=== PATIENT | female | born 1955 | race Caucasian/White ===

== ENCOUNTER 2017-05-15 02:01 | Emergency (ER) | payer BC ==
[2017-05-15 02:08] VITALS: O2SAT 99
[2017-05-15] MEDS ORDERED: Erythromycin 3.5 GM OPHTH. OP ONE (02:23)
[2017-05-15] MEDS ORDERED: Tylenol #3 Tablet PO ONE (02:26)
--- NOTE | 2017-05-15 02:31 | ERPHSYRPT ---
- History of Present Illness Time Seen by Provider: 05/15/17 02:10 Source: patient Exam Limitations: clinical condition Patient Subjective Stated Complaint: PT STATES THIS EVENING SHE BEGAN HAVING EYE DRAINAGE AND REDNESS. Triage Nursing Assessment: PT PINK, WARM, DRY. CONJUNCTIVA RED WITH WATERY DRANAGE AND YELLOW DISCHARGE. DENIES ANY VISUAL DISTURBANCES. Physician History: PATIENT COMPLAIN OF BILATERAL EYE REDNESS ASSOCIATED WITH DRAINAGE. HAS ASSOCIATED EYE IRRITATION, DENIES BLURRED VISION. Timing/Duration: today Location: bilateral eyes Severity: moderate Apparent Injury: no Associated Symptoms: burning, sensitivity to light, redness Visual Assistive Devices: None Chemical Exposure: No Trauma: No Welding Arc/Tanning Bed Exposure: No Allergies/Adverse Reactions: tobramycin Allergy (Severe, Verified 05/15/17 02:08) gentamicin Allergy (Verified 05/15/17 02:08) Hx Tetanus, Diphtheria Vaccination/Date Given: Yes (UP TO DATE) Hx Influenza Vaccination/Date Given: No Hx Pneumococcal Vaccination/Date Given: No Immunizations Up to Date: Yes - Review of Systems Eyes: Discharge, Eye Pain, Eye Redness, Tearing Ears, Nose, & Throat: No Symptoms Respiratory: No Symptoms Abdominal/Gastrointestinal: No Symptoms Genitourinary Symptoms: No Symptoms Neurological: No Symptoms Psychological: No Symptoms Endocrine: No Symptoms - Past Medical History Pertinent Past Medical History: No Neurological History: No Pertinent History ENT History: No Pertinent History Cardiac History: No Pertinent History Respiratory History: Other Endocrine Medical History: No Pertinent History Musculoskeletal History: No Pertinent History GI Medical History: No Pertinent History History: No Pertinent History Psycho-Social History: No Pertinent History Female Reproductive Disorders: No Pertinent History Other Medical History: hysterectomy 1997, choly 1995, hernia repair 1999 - Past Surgical History Past Surgical History: Yes Neuro Surgical History: No Pertinent History Cardiac: No Pertinent History Respiratory: No Pertinent History Gastrointestinal: Cholecystectomy, Exploratory Laparoscopy, Hernia Repair Genitourinary: No Pertinent History Musculoskeletal: No Pertinent History Female Surgical History: Hysterectomy - Social History Smoking Status: Former smoker Exposure to second hand smoke: No Drug Use: none Patient Lives Alone: No - Nursing Vital Signs Nursing Vital Signs: Initial Vital Signs Temperature 97.8 F 05/15/17 02:03 Pulse Rate 73 05/15/17 02:03 Respiratory Rate 18 05/15/17 02:03 Blood Pressure 161/84 05/15/17 02:03 O2 Sat by Pulse Oximetry 99 05/15/17 02:03 Pain Scale Pain Intensity 0 - Physical Exam General Appearance: no apparent distress Eye Exam: bilateral eye: normal inspection, PERRL, EOMI, conjunctival inflammation Ears, Nose, Throat Exam: normal ENT inspection Neck Exam: meningismus Respiratory Exam: normal breath sounds Extremity Exam: tenderness Neurologic: oriented x 3 Skin Exam: normal color SpO2: 99 Oxygen Delivery: Room Air Ordered Tests: Active Orders 24 hr Category Date Time Status Visual Acuity STAT Care 05/15/17 02:22 Ordered CULTURE,WOUND Stat Lab 05/15/17 02:25 Ordered Medication Summary Generic Name Dose Route Start Last Admin Trade Name Freq PRN Reason Stop Dose Admin Acetaminophen/Codeine Phosphate 2 tab 05/15/17 02:26 Tylenol #3 Tablet PO 05/15/17 02:27 SENT HOME W/ PATIENT ONE Discontinued Medications Generic Name Dose Route Start Last Admin Trade Name Freq PRN Reason Stop Dose Admin Erythromycin 3.5 gm 05/15/17 02:23 Erythromycin 3.5 Gm Ophth. OP 05/15/17 02:24 STAT ONE - Progress Progress Note: 05/15/17 02:32 ADMINISTERED TYLENOL #3-2 TABLETS TAKE HOME Counseled pt/family regarding: diagnosis, need for follow-up - Departure Time of Disposition: 02:45 Departure Disposition: Home, Extended Care Facility Clinical Impression: BILATERAL CONJUNCTIVITIS Condition: Stable Critical Care Time: No Referrals: ROSELIA PARKINSON FNP [Primary Care Provider] - Additional Instructions: CLEANSE YOUR HANDS FREQUENTLY. APPLY ERYTHROMYCIN OPHTMALMIC OINTMENT INTO BOTH EYES 4 TIMES DAILY FOR 7 DAYS. TYLENOL #3 EVERY 4 HOURS NEEDED FOR PAIN. Prescriptions: Codeine Phosphate/APAP #3 [Tylenol #3 Tablet] 1 tab PO Q4H PRN PRN #12 tablet PRN Reason: Pain Erythromycin Base 3.5 gm [Erythromycin 3.5 GM OPHTH.] 1 gm OP QID #3.5 tube
[2017-05-15] MEDS ORDERED: Erythromycin 1 GM OP STA (02:36)
[2017-05-15] MEDS ORDERED: Erythromycin 1 GM ONE (02:37)
[2017-05-15] MEDS ORDERED: Tylenol #3 Tablet ONE (02:37)
[2017-05-15 02:50] VITALS: BP 147/98; PULSE 76
== END 2017-05-15 02:50 | disposition home or self-care (01) ==
LOC: ED 02:01
DX: H10.9 Unspecified conjunctivitis (principal)
CPT/HCPCS: 87070; 87077; 99283; A9270-GY

== ENCOUNTER 2018-08-08 00:12 | Emergency (ER) | payer BC ==
[2018-08-08 00:26] VITALS: O2SAT 96
[2018-08-08] MEDS ORDERED: BACIGUENT PACKET TP ONE (00:29)
[2018-08-08] MEDS ORDERED: XYLOCAINE 1% HCL 20 ML MDV IJ ONE (00:29)
[2018-08-08] MEDS ORDERED: Adacel Vial IM ONE ×2 (00:29→00:38)
--- NOTE | 2018-08-08 00:34 | ERPHSYRPT ---
- History of Present Illness Time Seen by Provider: 08/08/18 00:30 Source: patient Exam Limitations: no limitations Patient Subjective Stated Complaint: Fall/ Laceration to forehead Triage Nursing Assessment: Patient ambulated back to ED and transferred self to bed. Patient A+ O X 3. Patient states she fell in her garage landing on concrete hitting her jasper knees and head around 2330. Patient has laceration to forehead and bridge of nose. Patient applied pressure and immediately came to ED. Patient complains of headache 7/10 and nausea. Patient denies losing consciousness. Laceration to forehead 2cm X 0.5cm and abrasion 1cm X 1cm on bridge of nose. Physician History: 63-year-old white female arrives with complaint of laceration to her anterior forehead symptoms since one hour prior to arrival. Patient states she slipped and fell in the garage striking her forehead she denies any loss of consciousness she has some tenderness in the area. She has no neck pain. She does have approximately 2 cm laceration to the anterior 4 which is semicircular and in the mid forehead. Past medical history patient denies. Past surgical history includes cholecystectomy, exploratory laparoscopy, hysterectomy, hernia repair Social history patient denies tobacco or illicit drug use she states she uses occasional alcohol. Timing/Duration: today (one hour prior to arriva) Severity: moderate Modifying Factors: Improves With: nothing Associated Symptoms: other (Localize pain and laceration to anterior forehead), No nausea, No vomiting, No abdominal pain, No shortness of breath, No heartburn , No diaphoresis, No cough, No chills, No chest pain, No fever, No headaches, No loss of appetite, No malaise, No rash, No syncope, No seizure, No weakness Allergies/Adverse Reactions: tobramycin Allergy (Severe, Verified 08/08/18 00:26) gentamicin Allergy (Verified 08/08/18 00:26) Hx Tetanus, Diphtheria Vaccination/Date Given: No Hx Influenza Vaccination/Date Given: No Hx Pneumococcal Vaccination/Date Given: No Immunizations Up to Date: Yes - Review of Systems Constitutional: No Symptoms, Other (Localized pain anterior forehead) Eyes: No Symptoms Ears, Nose, & Throat: No Symptoms Respiratory: No Cough, No Dyspnea Cardiac: No Chest Pain, No Edema, No Syncope Abdominal/Gastrointestinal: No Abdominal Pain, No Nausea, No Vomiting, No Diarrhea Genitourinary Symptoms: No Dysuria Musculoskeletal: No Back Pain, No Neck Pain Skin: Other (2 cm laceration anterior forehead) Neurological: No Dizziness, No Focal Weakness, No Sensory Changes Psychological: No Symptoms Endocrine: No Symptoms All Other Systems: Reviewed and Negative - Past Medical History Pertinent Past Medical History: No Neurological History: No Pertinent History ENT History: No Pertinent History Cardiac History: No Pertinent History Respiratory History: Other Endocrine Medical History: No Pertinent History Musculoskeletal History: No Pertinent History GI Medical History: No Pertinent History History: No Pertinent History Psycho-Social History: No Pertinent History Female Reproductive Disorders: No Pertinent History Other Medical History: hysterectomy 1997, choly 1995, hernia repair 1999 - Past Surgical History Past Surgical History: Yes Neuro Surgical History: No Pertinent History Cardiac: No Pertinent History Respiratory: No Pertinent History Gastrointestinal: Cholecystectomy, Exploratory Laparoscopy, Hernia Repair Genitourinary: No Pertinent History Musculoskeletal: No Pertinent History Female Surgical History: Hysterectomy - Social History Smoking Status: Never smoker Exposure to second hand smoke: No Drug Use: none Patient Lives Alone: Yes - Female History Hx Last Menstrual Period: Total Hysterectomy 1997 Hx Now: No - Nursing Vital Signs Nursing Vital Signs: Initial Vital Signs Temperature 97.4 F 08/08/18 00:14 Pulse Rate 81 08/08/18 00:14 Respiratory Rate 18 08/08/18 00:14 Blood Pressure 145/126 08/08/18 00:14 O2 Sat by Pulse Oximetry 96 08/08/18 00:14 Pain Scale Pain Intensity 7 - Physical Exam General Appearance: mild distress, alert, other (well-developed well-nourished white female 2 cm semicircular laceration anterior forehead mid forehead.) Eye Exam: PERRL/EOMI, eyes nml inspection Ears, Nose, Throat Exam: normal ENT inspection, TMs normal, pharynx normal, moist mucous membranes Neck Exam: normal inspection, non-tender, supple, full range of motion Respiratory Exam: normal breath sounds, lungs clear, No respiratory distress Cardiovascular Exam: regular rate/rhythm, normal heart sounds, normal peripheral pulses, capillary refill <2 sec Gastrointestinal/Abdomen Exam: soft, normal bowel sounds, No tenderness, No mass Back Exam: normal inspection, normal range of motion, No CVA tenderness, No vertebral tenderness Extremity Exam: normal inspection, normal range of motion, pelvis stable Neurologic Exam: alert, oriented x 3, cooperative, 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 as tested, normal mood/affect, nml cerebellar function, nml station & gait, sensation nml, No motor deficits Skin Exam: normal color, warm, dry, laceration (2 cm laceration semicircular mid anterior forehead) SpO2 Interpretation: normal (96%) SpO2: 96 Oxygen Delivery: Room Air - Course Nursing assessment & vital signs reviewed: Yes Ordered Tests: Active Orders 24 hr Category Date Time Status Prepare for Sutures STAT Care 08/08/18 00:29 Active Sutures STAT Care 08/08/18 00:29 Active Wound Care STAT Care 08/08/18 00:29 Active Medication Summary Discontinued Medications Generic Name Dose Route Start Last Admin Trade Name Freq PRN Reason Stop Dose Admin Bacitracin Zinc 0.9 gm 08/08/18 00:29 Baciguent Packet TP 08/08/18 00:30 STAT ONE Diphtheria/Tetanus/Acell Pertussis 0.5 ml 08/08/18 00:29 Adacel Vial IM 08/08/18 00:30 .ONCE ONE Diphtheria/Tetanus/Acell Pertussis Confirm 08/08/18 00:38 Adacel Vial Administered 08/08/18 00:39 Dose 0.5 ml IM .STK-MED ONE Lidocaine HCl 5 ml 08/08/18 00:29 Xylocaine 1% Hcl 20 Ml Mdv IJ 08/08/18 00:30 STAT ONE Lidocaine HCl Confirm 08/08/18 00:38 Xylocaine 1% Hcl 20 Ml Mdv Administered 08/08/18 00:39 Dose 5 ml .ROUTE .STK-MED ONE - Progress Progress: improved Progress Note: 08/08/18 01:00 Laceration repair, 2.0 cm, anterior forehead. Laceration sterilely prepped and draped. Anesthetized with 1% lidocaine. Sutured using 5 6. 0 Prolene sutures (interrupted) Bacitracin and pressure dressing was placed by the nurse. This is a 63-year-old white female she arrives with complaint with 2 cm laceration which is semicircular on her anterior forehead she states she slipped at home and fell striking her head on the garage floor. She has not had any loss of consciousness she has a normal neurologic exam. The laceration was repaired as noted above patient has no neck tenderness. DTaP was updated for this patient. Will give patient [place] for pain. 08/08/18 01:06 Patient's inspect report was examined patient without signs of recent or recurrent narcotic use. - Departure Time of Disposition: 01:02 Departure Disposition: Home Clinical Impression: Accidental fall Qualifiers: Encounter type: initial encounter Qualified Code(s): W19.XXXA - Unspecified fall, initial encounter Head contusion Qualifiers: Encounter type: initial encounter Contusion of head detail: unspecified part of head Qualified Code(s): S00.93XA - Contusion of unspecified part of head, initial encounter Forehead laceration Qualifiers: Encounter type: initial encounter Qualified Code(s): S01.81XA - Laceration without foreign body of other part of head, initial encounter Condition: Fair Critical Care Time: No Instructions: Contusion (DC), Laceration Repair With Stitches (DC), Closed Head Injury Additional Instructions: Return home. Keep laceration clean and dry apply bacitracin daily. Cold packs to contused area 24-48 hours. [place] 5/325 #10 one orally every 4-6 hours as needed for pain. Follow-up with your family doctor or return if signs of infection or problems. Sutures out in 5 days. Return for acute distress or for severe symptoms. Prescriptions: Hydrocodone/Acetaminophen [[place] 5-325 Tablet] 1 tab PO Q4-6HPRN PRN #10 tablet MDD 6 tablets PRN Reason: Pain
[2018-08-08] MEDS ORDERED: XYLOCAINE 1% HCL 20 ML MDV ONE (00:38)
[2018-08-08 01:18] VITALS: BP 125/70; PULSE 62
[2018-08-08] MEDS ORDERED: NORCO 5/325 MG PO ONE (01:21)
[2018-08-08] MEDS ORDERED: NORCO 5/325 MG ONE (01:22)
== END 2018-08-08 01:30 | disposition home or self-care (01) ==
LOC: ED 00:12
DX: S01.01XA Laceration without foreign body of scalp, initial encounter (principal); W01.198A Fall on same level from slipping, tripping and stumbling with subsequent striking against other object, initial encounter; Y92.008 Other place in unspecified non-institutional (private) residence as the place of occurrence of the external cause
CPT/HCPCS: 12001; 90471; 90715; 96372; 99284; A9270-GY

== ENCOUNTER 2021-10-24 13:04 | Inpatient (IN) | payer BC ==
[2021-10-24 13:53] LABS: Hematocrit 38.7 % (35-47); Hemoglobin 13.1 gm/dl (12.0-16.0); Mean Cell Volume 97.2 fl (78-100); Mean Corpuscular Hemoglobin 32.9 pg (26-32); Mean Corpuscular Hgb Concent. 33.9 g/dl (32-36); Mean Platelet Volume 10.8 fl (7.5-11.0); Platelet Count 245 K/mm3 (150-450); Red Blood Count 3.98 M/mm3 (4.1-5.4); Red Cell Distribution Width 12.5 % (11.5-14.0)
[2021-10-24 13:54] LABS: White Blood Count 25.3 K/mm3 (4.0-10.5)
--- NOTE | 2021-10-24 13:56 | XRAY ---
Indication: Short of breath. Comparison: November 26, 2016. Portable chest demonstrates new irregular left hilar fullness better evaluated with CT chest with contrast exam. Minimal right mid to lower lung subsegmental atelectasis/scarring. Heart not enlarged. Stable mediastinal/right hilar/right base calcified granulomas. Bony thorax intact again with osteopenia.
--- NOTE | 2021-10-24 13:59 | ERPHSYRPT ---
- History of Present Illness Time Seen by Provider: 10/24/21 13:20 Source: patient Exam Limitations: no limitations Patient Subjective Stated Complaint: HAVE BEEN FIGHTING SINUS AND EAR INFECTIONS SINCE JULY Triage Nursing Assessment: PT TO ROOM VIA WHEELCHAIR, PT IS ALERT AND ORIENTED, SLIGHT SHORTNESS OF BREATH NOTED, PT STATES, "EAR AND HEAD IS PAINFUL, 10/10." PRODUCTIVE COUGH, THICK GREEN SPUTUM, LUNGS CLEAR, NO EDEMA. Physician History: Patient is a 66-year-old female presents to our ED for evaluation of sinus pain ear pain and productive cough. Patient's sinus and ear pain started approximately 3 months ago. Patient has tried numerous [id number] remedies. Patient has now been experiencing some shortness of breath. Patient's last Covid test was in September. 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 Cough is productive of greenish sputum. Patient denies chest pain. No nausea vomiting or diaphoresis. Symptoms are progressive. Symptoms are moderate in intensity. No specific worsening improving factors. Patient voices no other complaints or concerns at this time. Timing/Duration: other (Ear and sinus pain since July. Progressive shortness of breath over the past several days) Severity: moderate Modifying Factors: Improves With: movement Associated Symptoms: shortness of breath, cough, fever, weakness, No nausea, No vomiting, No syncope, No seizure Allergies/Adverse Reactions: tobramycin Allergy (Severe, Verified 10/24/21 13:21) gentamicin Allergy (Verified 10/24/21 13:21) Home Medications: Buspirone HCl 5 mg [Buspar 5 mg] 10 mg PO BIDPRN PRN 10/24/21 [History] Citalopram Hydrobromide [Celexa] 10 mg PO DAILY 10/24/21 [History] Furosemide [Lasix] 20 mg PO DAILY 10/24/21 [History] Levothyroxine Sodium [Euthyrox] 50 mcg PO DAILY 10/24/21 [History] Montelukast Sodium 10 mg [Singulair 10 MG] 10 mg PO DAILY 10/24/21 [History] Potassium Chloride 10 meq PO DAILY 10/24/21 [History] Hx Tetanus, Diphtheria Vaccination/Date Given: Yes Hx Influenza Vaccination/Date Given: Yes Hx Pneumococcal Vaccination/Date Given: Yes Immunizations Up to Date: Yes Travel Risk - International Travel Have you traveled outside of the country in past 3 weeks: No - Coronavirus Screening Are you exhibiting any of the following symptoms?: No Close contact with a COVID-19 positive Pt in past 14-21 Days: No - Vaccine Status Have you recieved a Covid-19 vaccination: Yes [employer] 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: [employer] - Review of Systems Constitutional: No Symptoms, No Fever, No Chills Eyes: No Symptoms Ears, Nose, & Throat: No Symptoms Respiratory: No Symptoms, No Cough, No Dyspnea Cardiac: No Chest Pain, No Edema, No Syncope Abdominal/Gastrointestinal: No Symptoms, No Abdominal Pain, No Nausea, No Vomiting, No Diarrhea Genitourinary Symptoms: No Symptoms, No Dysuria Musculoskeletal: No Symptoms, No Back Pain, No Neck Pain Skin: No Symptoms, No Rash Neurological: No Symptoms, No Dizziness, No Focal Weakness, No Sensory Changes Psychological: No Symptoms Endocrine: No Symptoms Hematologic/Lymphatic: No Symptoms Immunological/Allergic: No Symptoms All Other Systems: Reviewed and Negative - Past Medical History Pertinent Past Medical History: No Neurological History: No Pertinent History ENT History: Other Cardiac History: No Pertinent History Respiratory History: No Pertinent History Endocrine Medical History: Hypothyroidism Musculoskeletal History: No Pertinent History GI Medical History: No Pertinent History History: No Pertinent History Psycho-Social History: Depression Female Reproductive Disorders: No Pertinent History Other Medical History: SEASONAL ALLERGIES - Past Surgical History Past Surgical History: Yes Neuro Surgical History: No Pertinent History Cardiac: No Pertinent History Respiratory: No Pertinent History Gastrointestinal: Cholecystectomy, Exploratory Laparoscopy, Hernia Repair Genitourinary: No Pertinent History Musculoskeletal: No Pertinent History Female Surgical History: Hysterectomy, Section - Social History Smoking Status: Never smoker Exposure to second hand smoke: No Drug Use: none Patient Lives Alone: Yes - Nursing Vital Signs Nursing Vital Signs: Initial Vital Signs Temperature 101.1 F 10/24/21 13:10 Pulse Rate 60 10/24/21 13:10 Respiratory Rate 30 H 10/24/21 13:10 O2 Sat by Pulse Oximetry 84 L 10/24/21 13:10 Pain Scale Pain Intensity 5 - Physical Exam General Appearance: no apparent distress, alert, other (Patient mildly tachypneic.) Eye Exam: PERRL/EOMI, eyes nml inspection Ears, Nose, Throat Exam: normal ENT inspection, TMs normal, pharynx normal, moist mucous membranes Neck Exam: normal inspection, non-tender, supple, full range of motion Respiratory Exam: normal breath sounds, lungs clear, airway intact, No respiratory distress Cardiovascular Exam: regular rate/rhythm, normal heart sounds, normal peripheral pulses Gastrointestinal/Abdomen Exam: soft, normal bowel sounds, No tenderness, No mass Back Exam: normal inspection, normal range of motion, No CVA tenderness, No vertebral tenderness Extremity Exam: normal inspection, normal range of motion, pelvis stable Neurologic Exam: alert, oriented x 3, cooperative, normal mood/affect, nml cerebellar function, nml station & gait, sensation nml, No motor deficits Skin Exam: normal color, warm, dry, No rash Lymphatic Exam: No adenopathy SpO2 Interpretation: normal SpO2: 92 - Course Nursing assessment & vital signs reviewed: Yes EKG Interpreted by Me: RATE (104), Sinus Tach, NORMAL AXIS, NORMAL INTERVALS - Radiology Exams Chest X-ray Interpretation: Teleradiologist Report (Radiology chest reveals left hilar fullness. Normal heart. Osteopenia. Lung granuloma) Ordered Tests: Active Orders 24 hr Category Date Time Status Bedrest ROUTINE Activity 10/24/21 20:43 Active [employer] STAT Care 10/24/21 13:33 Completed Code Status Order ROUTINE Care 10/24/21 20:43 Active EKG-ER Only STAT Care 10/24/21 13:33 Completed IV Care Q6H Care 10/24/21 20:43 Active IV Insertion STAT Care 10/24/21 13:33 Completed Neuro Checks Q4H Care 10/24/21 20:[address] in Observation ROUTINE Care 10/24/21 20:43 Active Pulse Oximetry (ED) STAT Care 10/24/21 13:33 Completed Telemetry q6h Care 10/24/21 20:43 Active Heart-Healthy Diet Diet 10/24/21 Breakfast Active CHEST 1 VIEW (PORTABLE) Stat Exams 10/24/21 13:33 Completed CHEST WITHOUT CONTRAST [CT] Stat Exams 10/24/21 15:42 Completed BLOOD CULTURE Stat Lab 10/24/21 14:08 Received CBC W DIFF AM.LAB Lab 10/25/21 04:15 Completed CBC W DIFF Stat Lab 10/24/21 13:29 Results CMP AM.LAB Lab 10/25/21 04:15 Completed CMP Stat Lab 10/24/21 13:29 Completed Lactic Acid Stat Lab 10/24/21 13:45 Completed Manual Differential NC Stat Lab 10/24/21 13:29 Results NT PRO BNP Stat Lab 10/24/21 13:29 Completed Pathologist Review Stat Lab 10/24/21 13:29 Results TROPONIN Q3H Lab 10/24/21 13:29 Completed TROPONIN Q3H Lab 10/24/21 16:30 Completed TROPONIN Q3H Lab 10/24/21 19:27 Completed Pulse Oximetry CONTINUOUS RT 10/24/21 20:43 Active Medication Summary Generic Name Dose Route Start Last Admin Trade Name Cece PRN Reason Stop Dose Admin Acetaminophen 650 mg 10/24/21 20:43 10/25/21 05:12 Acetaminophen 325 Mg Tablet PO 11/23/21 20:42 650 mg Q4H PRN PRN Administration PAIN AND/OR FEVER Albuterol/Ipratropium 3 ml 10/24/21 22:31 10/25/21 05:31 Ipratropium/Albuterol Sulfate 3 Ml Ampul.Neb IH 11/23/21 22:30 3 ml Q4HPRN PRN Administration SHORTNESS OF BREATH/WHEEZING Benzonatate 200 mg 10/24/21 21:31 10/24/21 21:40 Benzonatate 100 Mg Capsule PO 11/23/21 21:30 200 mg Q8H PRN Administration COUGH Buspirone HCl 10 mg 10/24/21 22:00 10/24/21 21:40 Buspirone Hcl 5 Mg Tablet PO 11/23/21 21:59 10 mg BID MARCELLO Administration Sodium Chloride 1,000 mls @ 100 mls/hr 10/24/21 20:43 10/24/21 21:41 Sodium Chloride 0.9% 1000 Ml IV 11/23/21 20:42 100 mls/hr .Q10H MARCELLO Administration Morphine Sulfate 4 mg 10/24/21 20:43 10/24/21 21:49 Morphine Sulfate 4 Mg/Ml Injection IV 10/29/21 20:42 4 mg Q4H PRN PRN Administration PAIN Discontinued Medications Generic Name Dose Route Start Last Admin Trade Name Cece PRN Reason Stop Dose Admin Sodium Chloride 1,000 mls @ 200 mls/hr 10/24/21 15:45 10/24/21 16:22 Sodium Chloride 0.9% 1000 Ml IV 11/23/21 15:44 200 mls/hr .Q5H MARCELLO Administration Vancomycin HCl 1 gm in 200 mls @ 125 mls/hr 10/24/21 15:44 10/24/21 18:25 Vancomycin 1 Gram/200 Ml Bag IV 10/24/21 17:19 125 mls/hr STAT ONE 125 mls/hr Administration Piperacillin Sod/Tazobactam 100 mls @ 200 mls/hr 10/24/21 15:44 10/24/21 16:23 Sod 3.375 gm/ Sodium Chloride IV 10/24/21 16:13 200 mls/hr STAT ONE Administration Magnesium Sulfate/Dextrose 100 mls @ 100 mls/hr 10/24/21 16:15 10/24/21 17:42 Magnesium 1 Gm / 100 Ml D5w IV 10/24/21 18:14 100 mls/hr Q1H MARCELLO Administration Sodium Chloride Confirm 10/24/21 16:20 Sodium Chloride 100ml Mini-Bag Plus Administered 10/24/21 16:21 Dose 100 mls @ ud IV .STK-MED ONE Vancomycin HCl Confirm 10/24/21 17:46 Vancomycin 1 Gram/200 Ml Bag Administered 10/24/21 17:47 Dose 1 gm in 200 mls @ ud IV .STK-MED ONE Magnesium Sulfate/Dextrose Confirm 10/24/21 17:10 Magnesium 1 Gm / 100 Ml D5w Administered 10/24/21 17:11 Dose 100 mls @ ud IV .STK-MED ONE Magnesium Sulfate/Dextrose Confirm 10/24/21 17:41 Magnesium 1 Gm / 100 Ml D5w Administered 10/24/21 17:42 Dose 100 mls @ ud IV .STK-MED ONE Morphine Sulfate 4 mg 10/24/21 17:23 10/24/21 17:39 Morphine Sulfate 4 Mg/Ml Injection IV 10/24/21 17:24 4 mg STAT ONE Administration Morphine Sulfate Confirm 10/24/21 17:36 Morphine Sulfate 4 Mg/Ml Injection Administered 10/24/21 17:37 Dose 4 mg .ROUTE .STK-MED ONE Ondansetron HCl 4 mg 10/24/21 17:24 10/24/21 17:39 Ondansetron Hcl 4 Mg/2 Ml Vial IV 10/24/21 17:25 4 mg STAT ONE Administration Ondansetron HCl Confirm 10/24/21 17:36 Ondansetron Hcl 4 Mg/2 Ml Vial Administered 10/24/21 17:37 Dose 4 mg .ROUTE .STK-MED ONE Piperacillin Sod/Tazobactam Sod Confirm 10/24/21 16:20 Piperacillin/Tazobactam Sodium 3.375 Gm Vial Administered 10/24/21 16:21 Dose 3.375 gm IV .STK-MED ONE Potassium Chloride 40 meq 10/24/21 16:01 10/24/21 16:23 Potassium Chloride 10 Meq Tablet PO 10/24/21 16:02 40 meq STAT ONE Administration Potassium Chloride Confirm 10/24/21 16:20 Potassium Chloride 10 Meq Tablet Administered 10/24/21 16:21 Dose 40 meq PO .STK-MED ONE Lab/Rad Data: Laboratory Result Diagrams 10/24/21 13:29 10/24/21 13:29 Laboratory Results 10/24/21 10/24/21 10/24/21 Range/Units 19:27 17:25 16:30 WBC (4.0-10.5) K/mm3 RBC (4.1-5.4) M/mm3 Hgb (12.0-16.0) gm/dl Hct (35-47) % MCV (78-100) fl MCH (26-32) pg MCHC (32-36) g/dl RDW (11.5-14.0) % Plt Count (150-450) K/mm3 MPV (7.5-11.0) fl Segmented Neutrophils (36.0-66.0) % Band Neutrophils (0.0-2.0) % Lymphocytes (Manual) (24-44) % Toxic Granulation Platelet Estimate (NORMAL) RBC Morphology Anisocytosis Smear Path Review Sodium (137-145) mmol/L Potassium (3.5-5.1) mmol/L Chloride (98-107) mmol/L Carbon Dioxide (22-30) mmol/L Anion Gap (5-15) MEQ/L BUN (7-17) mg/dL Creatinine (0.52-1.04) mg/dL Estimated GFR ML/MIN Glucose (74-106) mg/dL Lactic Acid (0.4-2.0) Calcium (8.4-10.2) mg/dL Total Bilirubin (0.2-1.3) mg/dL AST (14-36) U/L ALT (0-35) U/L Alkaline Phosphatase (38-126) U/L Troponin I < 0.012 < 0.012 (0.000-0.034) ng/mL NT-Pro-B Natriuret Pep (0-900) pg/mL Serum Total Protein (6.3-8.2) g/dL Albumin (3.5-5.0) g/dL Influenza Type A Ag NEGATIVE (NEGATIVE) Influenza Type B Ag NEGATIVE (NEGATIVE) RSV (PCR) NEGATIVE (Negative) SARS-CoV-2 (PCR) NEGATIVE (NEGATIVE) 10/24/21 10/24/21 10/24/21 Range/Units 13:45 13:29 13:29 WBC (4.0-10.5) K/mm3 RBC (4.1-5.4) M/mm3 Hgb (12.0-16.0) gm/dl Hct (35-47) % MCV (78-100) fl MCH (26-32) pg MCHC (32-36) g/dl RDW (11.5-14.0) % Plt Count (150-450) K/mm3 MPV (7.5-11.0) fl Segmented Neutrophils (36.0-66.0) % Band Neutrophils (0.0-2.0) % Lymphocytes (Manual) (24-44) % Toxic Granulation Platelet Estimate (NORMAL) RBC Morphology Anisocytosis Smear Path Review Sodium 136 L (137-145) mmol/L Potassium 3.2 L (3.5-5.1) mmol/L Chloride 100 (98-107) mmol/L Carbon Dioxide 23 (22-30) mmol/L Anion Gap 16.5 H (5-15) MEQ/L BUN 36 H (7-17) mg/dL Creatinine 2.01 H (0.52-1.04) mg/dL Estimated GFR 26.3 ML/MIN Glucose 155 H (74-106) mg/dL Lactic Acid 1.8 (0.4-2.0) Calcium 8.7 (8.4-10.2) mg/dL Total Bilirubin 1.40 H (0.2-1.3) mg/dL AST 28 (14-36) U/L ALT 23 (0-35) U/L Alkaline Phosphatase 136 H (38-126) U/L Troponin I < 0.012 (0.000-0.034) ng/mL NT-Pro-B Natriuret Pep 668 (0-900) pg/mL Serum Total Protein 6.7 (6.3-8.2) g/dL Albumin 3.6 (3.5-5.0) g/dL Influenza Type A Ag (NEGATIVE) Influenza Type B Ag (NEGATIVE) RSV (PCR) (Negative) SARS-CoV-2 (PCR) (NEGATIVE) 10/24/21 Range/Units 13:29 WBC 25.3 H* (4.0-10.5) K/mm3 RBC 3.98 L (4.1-5.4) M/mm3 Hgb 13.1 (12.0-16.0) gm/dl Hct 38.7 (35-47) % MCV 97.2 (78-100) fl MCH 32.9 H (26-32) pg MCHC 33.9 (32-36) g/dl RDW 12.5 (11.5-14.0) % Plt Count 245 (150-450) K/mm3 MPV 10.8 (7.5-11.0) fl Segmented Neutrophils 94 H (36.0-66.0) % Band Neutrophils 3 H (0.0-2.0) % Lymphocytes (Manual) 3 L (24-44) % Toxic Granulation 2+ Platelet Estimate NORMAL (NORMAL) RBC Morphology ABNORMAL Anisocytosis RARE Smear Path Review Pending Sodium (137-145) mmol/L Potassium (3.5-5.1) mmol/L Chloride (98-107) mmol/L Carbon Dioxide (22-30) mmol/L Anion Gap (5-15) MEQ/L BUN (7-17) mg/dL Creatinine (0.52-1.04) mg/dL Estimated GFR ML/MIN Glucose (74-106) mg/dL Lactic Acid (0.4-2.0) Calcium (8.4-10.2) mg/dL Total Bilirubin (0.2-1.3) mg/dL AST (14-36) U/L ALT (0-35) U/L Alkaline Phosphatase (38-126) U/L Troponin I (0.000-0.034) ng/mL NT-Pro-B Natriuret Pep (0-900) pg/mL Serum Total Protein (6.3-8.2) g/dL Albumin (3.5-5.0) g/dL Influenza Type A Ag (NEGATIVE) Influenza Type B Ag (NEGATIVE) RSV (PCR) (Negative) SARS-CoV-2 (PCR) (NEGATIVE) - Progress Progress: improved Progress Note: 10/24/21 15:43 Chest x-ray reveals a left hilar fullness. Radiologist recommends a CT chest with contrast. However a contrast study is contraindicated due to new acute renal injury. CT reveals bilateral multifocal pneumonia. Case discussed Dr. Gamez except admission to observation. 10/25/21 06:51 Discussed with : Emerita Will see patient in: hospital (observation) Counseled pt/family regarding: lab results, diagnosis, rad results - Departure Departure Disposition: Observation Clinical Impression: Leukocytosis, Hypokalemia, Acute renal injury, Abnormal chest x-ray, Osteopenia, Lung granuloma, Left upper lobe consolidation, Posterior bibasilar consolidation, Calcified hilar lymph node, Arthritis of spine, Left mid renal exophytic cyst, Fatty liver, Old granulomatous disease, Fever, Hypoxia Condition: Stable Critical Care Time: No
[2021-10-24 14:10] LABS: ALBUMIN 3.6 g/dL (3.5-5.0); ANION GAP 16.5 MEQ/L (5-15); BILIRUBIN,TOTAL 1.4 mg/dL (0.2-1.3); Calcium 8.7 mg/dL (8.4-10.2); Creatinine 1 2.01 mg/dL (0.52-1.04); EST GLOMERULAR FILTRATION RATE 26.3 ML/MIN; Potassium 3.2 mmol/L (3.5-5.1); Total Protein 6.7 g/dL (6.3-8.2)
[2021-10-24 14:29] LABS: BAND 3 % (0.0-2.0); Lymphocytes 3 % (24-44); Neutrophils 94 % (36.0-66.0); Total Cells Counted 100
[2021-10-24 14:30] LABS: ANISOCYTOSIS RARE; Platelet Estimate NORMAL (NORMAL); Toxic Granulation 2+
[2021-10-24] MEDS ORDERED: VANCOMYCIN 1 GRAM/200 ML BAG 1 GM/200 ML PIGGYBACK IV ONE ×2 (15:44→17:46)
[2021-10-24] MEDS ORDERED: PIPERACILLIN/TAZOBACTAM 3.375 GM in Sodium Chloride 100ML MINI-BAG PLUS 100 ML IV ONE (15:44)
[2021-10-24] MEDS ORDERED: Sodium Chloride 0.9% 1000 ML 1,000 ML IV SCH (15:45)
[2021-10-24] MEDS ORDERED: Klor Con 10 MEQ PO ONE ×2 (16:01→16:20)
[2021-10-24] MEDS ORDERED: PIPERACILLIN/TAZOBACTAM IV ONE (16:20)
[2021-10-24] MEDS ORDERED: Sodium Chloride 0.9% 1000 ML 1,000 ML ONE (16:20)
[2021-10-24] MEDS ORDERED: Sodium Chloride 100ML MINI-BAG PLUS 100 ML IV ONE (16:20)
--- NOTE | 2021-10-24 16:42 | XRAY ---
Indication: Short of breath. Abnormal same day chest radiograph. Multiple contiguous axial images obtained through the chest without contrast. IV contrast not given due to poor renal function. Comparison: None Lungs demonstrates large focus medial left upper lobe consolidating airspace disease felt to correspond to the chest radiograph abnormality. Lesser mild posterior bibasilar consolidating airspace disease. Remaining lungs demonstrates very minimal patchy airspace disease bilaterally. No effusion. Incidental small right lower lobe calcified granuloma. Heart not enlarged. Aorta is normal in course and caliber. Small chunky mediastinal and right hilar calcified nodes. There are 3 prominent nodes anterior to the aortic arch, largest 1.5 x 1.9 cm. Bony thorax intact with minimal degenerative changes throughout the spine. Limited upper abdomen demonstrates mild fatty liver, multiple splenic calcified granulomas, 2.7 cm left mid renal exophytic cyst, and cholecystectomy clips. Impression: 1. Diffuse multifocal bilateral consolidating/nonconsolidating airspace disease. Largest focus medial left upper lobe that corresponds to the chest radiograph abnormality. Rule out Covid 19 pneumonia. 2. A few indeterminant prominent mediastinal lymph nodes. 3. Incidental fatty liver, left renal cyst, and old granulomatous disease.
[2021-10-24] MEDS ORDERED: Magnesium 1 Gm / 100 Ml D5W*** 100 ML IV ONE ×2 (17:10→17:41)
[2021-10-24] MEDS: Magnesium 1 Gm / 100 Ml D5W*** 100 ML IV SCH ×2 (17:12→17:42)
[2021-10-24] MEDS ORDERED: MORPHINE SULFATE 4 MG INJ IV ONE (17:23)
[2021-10-24] MEDS ORDERED: Zofran 4 MG/2 ML VIAL IV ONE (17:24)
[2021-10-24] MEDS ORDERED: Zofran 4 MG/2 ML VIAL ONE (17:36)
[2021-10-24] MEDS ORDERED: MORPHINE SULFATE 4 MG INJ ONE (17:36)
[2021-10-24 18:09] LABS: INFLUENZA A NEGATIVE (NEGATIVE); INFLUENZA B NEGATIVE (NEGATIVE); RESPIRATORY SYNCTIAL VIRUS NEGATIVE (Negative); SARS-CoV-2 Xpert Express NEGATIVE (NEGATIVE)
[2021-10-24] MEDS: Tessalon Perles 100 MG PO PRN (21:40)
[2021-10-24] MEDS: Sodium Chloride 0.9% 1000 ML 1,000 ML IV SCH (21:41)
[2021-10-24] MEDS: MORPHINE SULFATE 4 MG INJ IV PRN (21:49)
[2021-10-24] MEDS ORDERED: BUSPAR 5 MG PO SCH (22:00)
[2021-10-25] MEDS ORDERED: TYLENOL 325 MG ONE (05:11)
[2021-10-25] MEDS: TYLENOL 325 MG PO PRN ×2 (05:12→20:09)
[2021-10-25 05:14] LABS: Hematocrit 34.9 % (35-47); Hemoglobin 11.4 gm/dl (12.0-16.0); Mean Cell Volume 99.4 fl (78-100); Mean Corpuscular Hemoglobin 32.5 pg (26-32); Mean Corpuscular Hgb Concent. 32.7 g/dl (32-36); Mean Platelet Volume 11.1 fl (7.5-11.0); Platelet Count 233 K/mm3 (150-450); Red Blood Count 3.51 M/mm3 (4.1-5.4); Red Cell Distribution Width 12.8 % (11.5-14.0); White Blood Count 24.7 K/mm3 (4.0-10.5)
[2021-10-25] MEDS: DUONEB 0.5-3 MG/3 ml Neb IH PRN ×2 (05:31→19:50)
[2021-10-25 05:36] LABS: ANION GAP 15.5 MEQ/L (5-15); BILIRUBIN,TOTAL 1.1 mg/dL (0.2-1.3); Calcium 7.7 mg/dL (8.4-10.2); Creatinine 1 1.58 mg/dL (0.52-1.04); EST GLOMERULAR FILTRATION RATE 34.8 ML/MIN; Total Protein 5.7 g/dL (6.3-8.2)
[2021-10-25] MEDS: Sodium Chloride 0.9% 1000 ML 1,000 ML IV SCH (06:54)
[2021-10-25 07:13] LABS: BAND 3 % (0.0-2.0); Eosinophil 1 % (0.00-3.0); Lymphocytes 5 % (24-44); Monocyte 5 % (0.0-12.0); Neutrophils 86 % (36.0-66.0); Platelet Estimate NORMAL (NORMAL); Total Cells Counted 100; Toxic Granulation 1+
[2021-10-25] MEDS ORDERED: BUSPAR 5 MG PO PRN (07:45)
--- NOTE | 2021-10-25 08:35 | PCM.HP ---
History of Present Illness - Chief Complaint Chief Complaint: Leukocytosis, multifocal pneumonia, acute renal injury History of Present Illness: is a 66 year old female with no local physician, she came to the ER yesterday with complaints of cough, green sputum and sinus pressure, persistent symptoms and sinus problems for the last 3 months. - Review of Systems Constitutional: Chills Ears, Nose, & Throat: Sinus Drainage Respiratory: Cough Cardiac: No Chest Pain, No Edema, No Syncope Abdominal/Gastrointestinal: No Abdominal Pain, No Nausea, No Vomiting, No Diarrhea All Other Systems: Reviewed and Negative Medications & Allergies Home Medications: Home Medication List Buspirone HCl 5 mg [Buspar 5 mg] 10 mg PO BIDPRN PRN 10/24/21 [History Confirmed 10/24/21] Citalopram Hydrobromide [Celexa] 10 mg PO DAILY 10/24/21 [History Confirmed 10/24/21] Furosemide [Lasix] 20 mg PO DAILY 10/24/21 [History Confirmed 10/24/21] Levothyroxine Sodium [Euthyrox] 50 mcg PO DAILY 10/24/21 [History Confirmed 10/24/21] Montelukast Sodium 10 mg [Singulair 10 MG] 10 mg PO DAILY 10/24/21 [History Confirmed 10/24/21] Potassium Chloride 10 meq PO DAILY 10/24/21 [History Confirmed 10/24/21] Allergies/Adverse Reactions: Allergies Allergy/AdvReac Type Severity Reaction Status Date / Time tobramycin Allergy Severe Verified 10/24/21 13:21 gentamicin Allergy Verified 10/24/21 13:21 - Past Medical History Past Medical History: No Neurological History: No Pertinent History ENT History: Other Cardiac History: No Pertinent History Respiratory History: No Pertinent History Endocrine Medical History: Hypothyroidism Musculoskelatal History: No Pertinent History GI Medical History: No Pertinent History History: No Pertinent History Pyscho-Social History: Depression Reproductive Disorders: No Pertinent History Comment: SEASONAL ALLERGIES - Past Surgical History Past Surgical History: Yes Neuro Surgical History: No Pertinent History Cardiac History: No Pertinent History Respiratory Surgery: No Pertinent History GI Surgical History: Cholecystectomy, Exploratory Laparoscopy, Hernia Repair Genitourinary Surgical Hx: No Pertinent History Musculskeletal Surgical Hx: No Pertinent History Female Surgical History: Hysterectomy, Section - Social History Smoking Status: Never smoker Exposure to second hand smoke: No Alcohol: None Drug Use: none - Physical Exam Vital Signs: Vital Signs - 24 hr Temp Pulse Resp BP Pulse Ox 10/25/21 07:32 98.1 F 69 16 96/54 94 L 10/25/21 06:55 92 L 10/25/21 05:33 82 20 93 L 10/25/21 04:05 97.5 F 94 H 24 89/55 93 L 10/24/21 23:55 99.6 F 94 H 22 88/51 94 L 10/24/21 22:06 99.2 F 104 H 20 107/57 91 L 10/24/21 21:55 101 H 20 95 10/24/21 20:05 107 H 20 109/91 93 L 10/24/21 19:13 102 H 22 94/55 98 10/24/21 18:00 95 H 24 93/66 95 10/24/21 17:00 98.5 F 95 H 25 H 103/68 94 L 10/24/21 16:23 99 H 21 80/56 97 10/24/21 15:20 105 H 20 87/59 92 L 10/24/21 14:27 88 L 10/24/21 14:17 104 H 18 92/55 97 10/24/21 13:27 92 L 10/24/21 13:10 101.1 F 60 30 H 84 L General Appearance: no apparent distress, obese Neurologic Exam: alert, oriented x 3 Respiratory Exam: rhonchi Cardiovascular Exam: regular rate/rhythm, normal heart sounds, normal peripheral pulses Gastrointestinal/Abdomen Exam: soft, normal bowel sounds, No tenderness, No mass Extremity Exam: normal inspection, normal range of motion, pelvis stable Skin Exam: normal color, warm, dry, No rash Results - Labs Lab/Micro Results: Lab Results-Last 24 Hours 10/24/21 10/24/21 10/24/21 Range/Units 13:29 13:29 13:29 WBC 25.3 H* (4.0-10.5) K/mm3 RBC 3.98 L (4.1-5.4) M/mm3 Hgb 13.1 (12.0-16.0) gm/dl Hct 38.7 (35-47) % MCV 97.2 (78-100) fl MCH 32.9 H (26-32) pg MCHC 33.9 (32-36) g/dl RDW 12.5 (11.5-14.0) % Plt Count 245 (150-450) K/mm3 MPV 10.8 (7.5-11.0) fl Segmented Neutrophils 94 H (36.0-66.0) % Band Neutrophils 3 H (0.0-2.0) % Lymphocytes (Manual) 3 L (24-44) % Monocytes (Manual) (0.0-12.0) % Eosinophils (Manual) (0.00-3.0) % Toxic Granulation 2+ Platelet Estimate NORMAL (NORMAL) RBC Morphology ABNORMAL Anisocytosis RARE Smear Path Review Pending Sodium 136 L (137-145) mmol/L Potassium 3.2 L (3.5-5.1) mmol/L Chloride 100 (98-107) mmol/L Carbon Dioxide 23 (22-30) mmol/L Anion Gap 16.5 H (5-15) MEQ/L BUN 36 H (7-17) mg/dL Creatinine 2.01 H (0.52-1.04) mg/dL Estimated GFR 26.3 ML/MIN Glucose 155 H (74-106) mg/dL Lactic Acid (0.4-2.0) Calcium 8.7 (8.4-10.2) mg/dL Total Bilirubin 1.40 H (0.2-1.3) mg/dL AST 28 (14-36) U/L ALT 23 (0-35) U/L Alkaline Phosphatase 136 H (38-126) U/L Troponin I < 0.012 (0.000-0.034) ng/mL NT-Pro-B Natriuret Pep 668 (0-900) pg/mL Serum Total Protein 6.7 (6.3-8.2) g/dL Albumin 3.6 (3.5-5.0) g/dL Influenza Type A Ag (NEGATIVE) Influenza Type B Ag (NEGATIVE) RSV (PCR) (Negative) SARS-CoV-2 (PCR) (NEGATIVE) 10/24/21 10/24/21 10/24/21 Range/Units 13:45 16:30 17:25 WBC (4.0-10.5) K/mm3 RBC (4.1-5.4) M/mm3 Hgb (12.0-16.0) gm/dl Hct (35-47) % MCV (78-100) fl MCH (26-32) pg MCHC (32-36) g/dl RDW (11.5-14.0) % Plt Count (150-450) K/mm3 MPV (7.5-11.0) fl Segmented Neutrophils (36.0-66.0) % Band Neutrophils (0.0-2.0) % Lymphocytes (Manual) (24-44) % Monocytes (Manual) (0.0-12.0) % Eosinophils (Manual) (0.00-3.0) % Toxic Granulation Platelet Estimate (NORMAL) RBC Morphology Anisocytosis Smear Path Review Sodium (137-145) mmol/L Potassium (3.5-5.1) mmol/L Chloride (98-107) mmol/L Carbon Dioxide (22-30) mmol/L Anion Gap (5-15) MEQ/L BUN (7-17) mg/dL Creatinine (0.52-1.04) mg/dL Estimated GFR ML/MIN Glucose (74-106) mg/dL Lactic Acid 1.8 (0.4-2.0) Calcium (8.4-10.2) mg/dL Total Bilirubin (0.2-1.3) mg/dL AST (14-36) U/L ALT (0-35) U/L Alkaline Phosphatase (38-126) U/L Troponin I < 0.012 (0.000-0.034) ng/mL NT-Pro-B Natriuret Pep (0-900) pg/mL Serum Total Protein (6.3-8.2) g/dL Albumin (3.5-5.0) g/dL Influenza Type A Ag NEGATIVE (NEGATIVE) Influenza Type B Ag NEGATIVE (NEGATIVE) RSV (PCR) NEGATIVE (Negative) SARS-CoV-2 (PCR) NEGATIVE (NEGATIVE) 10/24/21 10/25/21 10/25/21 Range/Units 19:27 04:15 04:15 WBC 24.7 H (4.0-10.5) K/mm3 RBC 3.51 L (4.1-5.4) M/mm3 Hgb 11.4 L (12.0-16.0) gm/dl Hct 34.9 L (35-47) % MCV 99.4 (78-100) fl MCH 32.5 H (26-32) pg MCHC 32.7 (32-36) g/dl RDW 12.8 (11.5-14.0) % Plt Count 233 (150-450) K/mm3 MPV 11.1 H (7.5-11.0) fl Segmented Neutrophils 86 H (36.0-66.0) % Band Neutrophils 3 H (0.0-2.0) % Lymphocytes (Manual) 5 L (24-44) % Monocytes (Manual) 5 (0.0-12.0) % Eosinophils (Manual) 1 (0.00-3.0) % Toxic Granulation 1+ Platelet Estimate NORMAL (NORMAL) RBC Morphology NORMAL Anisocytosis Smear Path Review Sodium 132 L (137-145) mmol/L Potassium 4.0 D (3.5-5.1) mmol/L Chloride 102 (98-107) mmol/L Carbon Dioxide 19 L (22-30) mmol/L Anion Gap 15.5 H (5-15) MEQ/L BUN 37 H (7-17) mg/dL Creatinine 1.58 H (0.52-1.04) mg/dL Estimated GFR 34.8 ML/MIN Glucose 172 H (74-106) mg/dL Lactic Acid (0.4-2.0) Calcium 7.7 L (8.4-10.2) mg/dL Total Bilirubin 1.10 (0.2-1.3) mg/dL AST 30 (14-36) U/L ALT 22 (0-35) U/L Alkaline Phosphatase 120 (38-126) U/L Troponin I < 0.012 (0.000-0.034) ng/mL NT-Pro-B Natriuret Pep (0-900) pg/mL Serum Total Protein 5.7 L (6.3-8.2) g/dL Albumin 3.0 L (3.5-5.0) g/dL Influenza Type A Ag (NEGATIVE) Influenza Type B Ag (NEGATIVE) RSV (PCR) (Negative) SARS-CoV-2 (PCR) (NEGATIVE) - Radiology Impressions Radiology Exams & Impressions: Radiology Procedures Category Date Time Status CHEST 1 VIEW (PORTABLE) Stat Exams 10/24/21 13:33 Completed CHEST WITHOUT CONTRAST [CT] Stat Exams 10/24/21 15:42 Completed - Other Procedures and Tests Respiratory Therapy 10/24/21 22:32 Oxygen Nasal Cannula 3 lpm Respiratory Therapy Assessment DAILY Assessment/Plan (1) Community acquired pneumonia Current Visit: Yes Status: Acute Assessment & Plan: ordered rocephin and zithromax for CAP, patient appears stable. will follow wbc, currently on 3L oxygen nasal cannula but normal work of breathing and no distress noted Code(s): J18.9 - PNEUMONIA, UNSPECIFIED ORGANISM (2) Acute kidney injury Current Visit: Yes Status: Acute Assessment & Plan: improved with hydration, will follow Code(s): N17.9 - ACUTE KIDNEY FAILURE, UNSPECIFIED
[2021-10-25] MEDS: Zithromax 500 MG/ 250 ML NaCl Premix 500 MG/250 ML IVPB IV SCH (09:36)
[2021-10-25] MEDS: ENOXAPARIN SODIUM SQ SCH (09:36)
[2021-10-25] MEDS: ROCEPHIN 1 Gm-D5w 50 ml Bag** 1 G/50 ML IVPB IV SCH (09:36)
[2021-10-25] MEDS ORDERED: ENOXAPARIN SODIUM SQ SCH (10:00)
[2021-10-25] MEDS ORDERED: NON-FORMULARY ITEM (Citalopram Hydrobromide [Celexa] 10 MG Tablet) PO SCH (10:00)
[2021-10-25] MEDS: Singulair 10 MG PO SCH (10:14)
[2021-10-25] MEDS: SYNTHROID 50 MCG PO SCH (10:14)
[2021-10-25] MEDS: ceLEXa 20 MG PO SCH (10:15)
[2021-10-25] MEDS: Tessalon Perles 100 MG PO PRN (10:17)
[2021-10-25] MEDS: MORPHINE SULFATE 4 MG INJ IV PRN (15:29)
[2021-10-25] MEDS: Sodium Chloride 0.9% W/ 20 mEq KCl/LITER 1,000 ML IV SCH (18:17)
[2021-10-26] MEDS: TYLENOL 325 MG PO PRN ×3 (00:12→15:10)
[2021-10-26] MEDS: DUONEB 0.5-3 MG/3 ml Neb IH PRN ×2 (00:12→04:55)
[2021-10-26] MEDS: Tessalon Perles 100 MG PO PRN ×2 (01:07→21:25)
[2021-10-26 05:33] LABS: Hematocrit 34.6 % (35-47); Hemoglobin 11.2 gm/dl (12.0-16.0); Mean Cell Volume 100.6 fl (78-100); Mean Corpuscular Hemoglobin 32.6 pg (26-32); Mean Corpuscular Hgb Concent. 32.4 g/dl (32-36); Mean Platelet Volume 10.7 fl (7.5-11.0); Platelet Count 270 K/mm3 (150-450); Red Blood Count 3.44 M/mm3 (4.1-5.4); White Blood Count 17.7 K/mm3 (4.0-10.5)
[2021-10-26 06:02] LABS: ANION GAP 10.4 MEQ/L (5-15); Calcium 7.9 mg/dL (8.4-10.2); Creatinine 1 1.06 mg/dL (0.52-1.04); EST GLOMERULAR FILTRATION RATE 55.1 ML/MIN; Potassium 3.4 mmol/L (3.5-5.1)
[2021-10-26 08:15] LABS: BAND 8 % (0.0-2.0); Eosinophil 1 % (0.00-3.0); Lymphocytes 10 % (24-44); Monocyte 4 % (0.0-12.0); Neutrophils 77 % (36.0-66.0); Platelet Estimate NORMAL (NORMAL); Total Cells Counted 100
[2021-10-26] MEDS ORDERED: NORCO 5/325 MG PO PRN (08:18)
[2021-10-26] MEDS ORDERED: Sodium Chloride 0.9% 500 ML 500 ML IV ONE ×2 (08:19→08:25)
[2021-10-26] MEDS ORDERED: NORCO 5/325 MG ONE (08:24)
[2021-10-26] MEDS: Sodium Chloride 0.9% W/ 20 mEq KCl/LITER 1,000 ML IV SCH ×2 (08:58→08:59)
[2021-10-26] MEDS: SYNTHROID 50 MCG PO SCH (09:54)
[2021-10-26] MEDS: Singulair 10 MG PO SCH (09:54)
[2021-10-26] MEDS: ceLEXa 20 MG PO SCH (09:54)
[2021-10-26] MEDS: ENOXAPARIN SODIUM SQ SCH (09:55)
[2021-10-26] MEDS: ROCEPHIN 1 Gm-D5w 50 ml Bag** 1 G/50 ML IVPB IV SCH (09:55)
[2021-10-26] MEDS: Zithromax 500 MG/ 250 ML NaCl Premix 500 MG/250 ML IVPB IV SCH (09:55)
[2021-10-26] MEDS: NORCO 5/325 MG PO PRN (15:10)
[2021-10-26] MEDS: MORPHINE SULFATE 4 MG INJ IV PRN ×2 (15:56→21:26)
[2021-10-27] MEDS: NORCO 5/325 MG PO PRN ×3 (01:25→22:37)
[2021-10-27 05:54] LABS: Hematocrit 38.9 % (35-47); Hemoglobin 13.2 gm/dl (12.0-16.0); Mean Corpuscular Hemoglobin 33.2 pg (26-32); Mean Corpuscular Hgb Concent. 33.9 g/dl (32-36); Mean Platelet Volume 10.3 fl (7.5-11.0); Platelet Count 321 K/mm3 (150-450); Red Blood Count 3.97 M/mm3 (4.1-5.4); White Blood Count 13.5 K/mm3 (4.0-10.5)
[2021-10-27 06:06] LABS: BLOOD UREA NITROGEN 14 mg/dL (7-17); CHLORIDE 102 mmol/L (98-107); Calcium 8.4 mg/dL (8.4-10.2); Carbon Dioxide 24 mmol/L (22-30); Creatinine 1 0.71 mg/dL (0.52-1.04); EST GLOMERULAR FILTRATION RATE > 60.0 ML/MIN; Glucose 117 mg/dL (74-106); Potassium 3.7 mmol/L (3.5-5.1); SODIUM 131 mmol/L (137-145)
[2021-10-27] MEDS: Tessalon Perles 100 MG PO PRN ×2 (07:31→17:20)
--- NOTE | 2021-10-27 09:02 | XRAY ---
Indication: Follow-up pneumonia. Comparison: October 24, 2020. Portable chest again demonstrates multifocal bilateral CT proven consolidating/nonconsolidating airspace disease, moderately worsened in left upper and left lower lobes. Heart not enlarged. Again incidental old granulomatous disease.
[2021-10-27] MEDS: Zofran 4 MG/2 ML VIAL IV PRN (09:14)
[2021-10-27] MEDS: ROCEPHIN 1 Gm-D5w 50 ml Bag** 1 G/50 ML IVPB IV SCH (09:15)
[2021-10-27] MEDS: SYNTHROID 50 MCG PO SCH (09:21)
[2021-10-27] MEDS: Singulair 10 MG PO SCH (09:21)
[2021-10-27] MEDS: ENOXAPARIN SODIUM SQ SCH (09:21)
[2021-10-27] MEDS: ceLEXa 20 MG PO SCH (09:21)
[2021-10-27] MEDS: Zithromax 500 MG/ 250 ML NaCl Premix 500 MG/250 ML IVPB IV SCH (10:51)
[2021-10-27] MEDS: MORPHINE SULFATE 4 MG INJ IV PRN (17:23)
[2021-10-28] MEDS: Tessalon Perles 100 MG PO PRN ×2 (03:19→20:06)
[2021-10-28 06:23] LABS: Hematocrit 35.7 % (35-47); Hemoglobin 11.6 gm/dl (12.0-16.0); Mean Cell Volume 100.6 fl (78-100); Mean Corpuscular Hemoglobin 32.7 pg (26-32); Mean Corpuscular Hgb Concent. 32.5 g/dl (32-36); Mean Platelet Volume 10.2 fl (7.5-11.0); Platelet Count 329 K/mm3 (150-450); Red Blood Count 3.55 M/mm3 (4.1-5.4); Red Cell Distribution Width 12.8 % (11.5-14.0); White Blood Count 8.7 K/mm3 (4.0-10.5)
[2021-10-28 06:27] LABS: ALBUMIN 3.1 g/dL (3.5-5.0); ALKALINE PHOSPHATASE 123 U/L (38-126); ANION GAP 6.2 MEQ/L (5-15); BLOOD UREA NITROGEN 10 mg/dL (7-17); CHLORIDE 102 mmol/L (98-107); Calcium 8.3 mg/dL (8.4-10.2); Carbon Dioxide 32 mmol/L (22-30); EST GLOMERULAR FILTRATION RATE > 60.0 ML/MIN; Glucose 111 mg/dL (74-106); Potassium 3.7 mmol/L (3.5-5.1); SGOT/AST 27 U/L (14-36); SGPT/ALT 23 U/L (0-35); SODIUM 137 mmol/L (137-145); Total Protein 6.1 g/dL (6.3-8.2)
[2021-10-28] MEDS: NORCO 5/325 MG PO PRN ×2 (07:22→17:59)
--- NOTE | 2021-10-28 08:32 | XRAY ---
Indication: Pneumonia. Cough. Comparison: One day earlier. Portable chest unchanged again demonstrating multifocal bilateral consolidating/nonconsolidating airspace disease left greater than right and incidental old granulomatous disease. Heart not enlarged. No new cardiopulmonary abnormalities.
[2021-10-28] MEDS: ROCEPHIN 1 Gm-D5w 50 ml Bag** 1 G/50 ML IVPB IV SCH (09:09)
[2021-10-28] MEDS: Zofran 4 MG/2 ML VIAL IV PRN (09:09)
[2021-10-28] MEDS: ceLEXa 20 MG PO SCH (09:09)
[2021-10-28] MEDS: Singulair 10 MG PO SCH (09:10)
[2021-10-28] MEDS: ENOXAPARIN SODIUM SQ SCH (09:10)
[2021-10-28] MEDS: SYNTHROID 50 MCG PO SCH (09:10)
[2021-10-28] MEDS: Zithromax 500 MG/ 250 ML NaCl Premix 500 MG/250 ML IVPB IV SCH (09:50)
[2021-10-28] MEDS: TYLENOL 325 MG PO PRN (20:03)
[2021-10-29] MEDS: TYLENOL 325 MG PO PRN ×2 (03:27→20:09)
[2021-10-29] MEDS: Tessalon Perles 100 MG PO PRN (03:59)
[2021-10-29 04:59] LABS: Hematocrit 36.2 % (35-47); Hemoglobin 11.4 gm/dl (12.0-16.0); Mean Cell Volume 101.7 fl (78-100); Mean Corpuscular Hgb Concent. 31.5 g/dl (32-36); Mean Platelet Volume 9.9 fl (7.5-11.0); Platelet Count 354 K/mm3 (150-450); Red Blood Count 3.56 M/mm3 (4.1-5.4); Red Cell Distribution Width 12.8 % (11.5-14.0)
[2021-10-29 05:16] LABS: ALKALINE PHOSPHATASE 108 U/L (38-126); ANION GAP 5.5 MEQ/L (5-15); BLOOD UREA NITROGEN 9 mg/dL (7-17); CHLORIDE 101 mmol/L (98-107); Calcium 8.2 mg/dL (8.4-10.2); Carbon Dioxide 35 mmol/L (22-30); EST GLOMERULAR FILTRATION RATE > 60.0 ML/MIN; Glucose 99 mg/dL (74-106); Potassium 3.7 mmol/L (3.5-5.1); SGOT/AST 26 U/L (14-36); SGPT/ALT 22 U/L (0-35); SODIUM 137 mmol/L (137-145); Total Protein 6.1 g/dL (6.3-8.2)
--- NOTE | 2021-10-29 08:39 | XRAY ---
Indication: Pneumonia. Comparison: One day earlier. Portable chest unchanged again demonstrating multifocal bilateral consolidating/nonconsolidating airspace disease left greater than right and old granulomatous disease. Heart not enlarged. No new cardiopulmonary abnormalities.
[2021-10-29] MEDS: NORCO 5/325 MG PO PRN (09:28)
[2021-10-29] MEDS ORDERED: Lasix 20 MG/2 ML IV ONE (09:45)
[2021-10-29] MEDS: Singulair 10 MG PO SCH (09:45)
[2021-10-29] MEDS ORDERED: Klor Con 10 MEQ PO SCH (09:45)
[2021-10-29] MEDS: SYNTHROID 50 MCG PO SCH (09:45)
[2021-10-29] MEDS: ceLEXa 20 MG PO SCH (09:45)
[2021-10-29] MEDS: ROCEPHIN 1 Gm-D5w 50 ml Bag** 1 G/50 ML IVPB IV SCH (09:50)
[2021-10-29] MEDS: ENOXAPARIN SODIUM SQ SCH (09:56)
[2021-10-29] MEDS: Zithromax 500 MG/ 250 ML NaCl Premix 500 MG/250 ML IVPB IV SCH (11:22)
[2021-10-29] MEDS ORDERED: XYLOCAINE 1% HCL 20 ML MDV ONE (17:14)
--- NOTE | 2021-10-29 17:55 | PCM.CONS ---
History of Present Illness - Reason for Consult Chief Complaint: COMMUNITY ACQUIRED PNEUMONIA Date of Consultation Date: 10/29/21 Reason for Consult: IV access - Anesthesia Service Requesting Provider: JUNAID VIRGEN Consulting Provider: FREDDIE THOMASON History of Present Illness: is a 66 year old female. Medications & Allergies Home Medications: Home Medication List Buspirone HCl 5 mg [Buspar 5 mg] 10 mg PO BIDPRN PRN 10/24/21 [History Confirmed 10/24/21] Citalopram Hydrobromide [Celexa] 10 mg PO DAILY 10/24/21 [History Confirmed 10/24/21] Furosemide [Lasix] 20 mg PO DAILY 10/24/21 [History Confirmed 10/24/21] Levothyroxine Sodium [Euthyrox] 50 mcg PO DAILY 10/24/21 [History Confirmed 10/24/21] Montelukast Sodium 10 mg [Singulair 10 MG] 10 mg PO DAILY 10/24/21 [History Confirmed 10/24/21] Potassium Chloride 10 meq PO DAILY 10/24/21 [History Confirmed 10/24/21] Allergies/Adverse Reactions: Allergies Allergy/AdvReac Type Severity Reaction Status Date / Time tobramycin Allergy Severe Verified 10/24/21 13:21 gentamicin Allergy Verified 10/24/21 13:21 - Past Medical History Past Medical History: No Neurological History: No Pertinent History ENT History: Other Cardiac History: No Pertinent History Respiratory History: No Pertinent History Endocrine Medical History: Hypothyroidism Musculoskelatal History: No Pertinent History GI Medical History: No Pertinent History History: No Pertinent History Pyscho-Social History: Depression Reproductive Disorders: No Pertinent History Comment: SEASONAL ALLERGIES - Past Surgical History Past Surgical History: Yes Neuro Surgical History: No Pertinent History Cardiac History: No Pertinent History Respiratory Surgery: No Pertinent History GI Surgical History: Cholecystectomy, Exploratory Laparoscopy, Hernia Repair Genitourinary Surgical Hx: No Pertinent History Musculskeletal Surgical Hx: No Pertinent History Female Surgical History: Hysterectomy, Section - Social History Smoking Status: Never smoker Exposure to second hand smoke: No Alcohol: None Drug Use: none - Physical Exam Vital Signs: Vital Signs - 24 hr Temp Pulse Resp BP Pulse Ox 10/29/21 12:00 96.8 F 65 18 112/62 95 03/21/22 07:46 97.3 F 59 L 16 130/60 93 L 10/29/21 07:01 64 18 94 L 10/29/21 03:56 97.7 F 84 20 131/73 89 L 10/28/21 23:53 97.1 F 57 L 19 106/55 94 L 10/28/21 19:53 97.1 F 77 20 132/77 91 L 10/28/21 19:45 64 16 94 L Results - Labs Lab/Micro Results: Lab Results-Last 24 Hours 10/29/21 10/29/21 10/29/21 Range/Units 04:54 04:54 04:54 WBC 7.0 (4.0-10.5) K/mm3 RBC 3.56 L (4.1-5.4) M/mm3 Hgb 11.4 L (12.0-16.0) gm/dl Hct 36.2 (35-47) % MCV 101.7 H (78-100) fl MCH 32.0 (26-32) pg MCHC 31.5 L (32-36) g/dl RDW 12.8 (11.5-14.0) % Plt Count 354 (150-450) K/mm3 MPV 9.9 (7.5-11.0) fl Sodium 137 (137-145) mmol/L Potassium 3.7 (3.5-5.1) mmol/L Chloride 101 (98-107) mmol/L Carbon Dioxide 35 H (22-30) mmol/L Anion Gap 5.5 (5-15) MEQ/L BUN 9 (7-17) mg/dL Creatinine 0.60 (0.52-1.04) mg/dL Estimated GFR > 60.0 ML/MIN Glucose 99 (74-106) mg/dL Calcium 8.2 L (8.4-10.2) mg/dL Total Bilirubin 0.50 (0.2-1.3) mg/dL AST 26 (14-36) U/L ALT 22 (0-35) U/L Alkaline Phosphatase 108 (38-126) U/L Serum Total Protein 6.1 L (6.3-8.2) g/dL Albumin 3.0 L (3.5-5.0) g/dL Thyroxine (T4) 6.56 (5.53-10.96) ug/dL TSH 3rd Generation (0.47-4.68) mIU/L 10/29/21 Range/Units 09:34 WBC (4.0-10.5) K/mm3 RBC (4.1-5.4) M/mm3 Hgb (12.0-16.0) gm/dl Hct (35-47) % MCV (78-100) fl MCH (26-32) pg MCHC (32-36) g/dl RDW (11.5-14.0) % Plt Count (150-450) K/mm3 MPV (7.5-11.0) fl Sodium (137-145) mmol/L Potassium (3.5-5.1) mmol/L Chloride (98-107) mmol/L Carbon Dioxide (22-30) mmol/L Anion Gap (5-15) MEQ/L BUN (7-17) mg/dL Creatinine (0.52-1.04) mg/dL Estimated GFR ML/MIN Glucose (74-106) mg/dL Calcium (8.4-10.2) mg/dL Total Bilirubin (0.2-1.3) mg/dL AST (14-36) U/L ALT (0-35) U/L Alkaline Phosphatase (38-126) U/L Serum Total Protein (6.3-8.2) g/dL Albumin (3.5-5.0) g/dL Thyroxine (T4) (5.53-10.96) ug/dL TSH 3rd Generation 9.870 H (0.47-4.68) mIU/L Microbiology 10/24/21 13:29 Blood Culture Gram Stain - Final Blood Not Reportable Blood Culture - Final NO GROWTH 10/24/21 14:08 Blood Culture Gram Stain - Final Blood Not Reportable Blood Culture - Final NO GROWTH - Radiology Impressions Radiology Exams & Impressions: Radiology Procedures Category Date Time Status CHEST 1 VIEW (PORTABLE) DAILY Exams 10/28/21 07:00 Completed CHEST 1 VIEW (PORTABLE) Routine Exams 10/29/21 07:00 Completed CHEST WITH CONTRAST [CT] Urgent Exams 10/29/21 Ordered Portable Chest [CHEST 1 VIEW (PORTABLE)] DAILY Exams 10/30/21 07:00 Ordered - Other Procedures and Tests Consulted for peripheral IV access. Patient needs access for CT scan w/contrast. Discussed midline IV placement risks/benefits with patient and agrees to proceed. Right upper arm scanned using ultrasound guidance. Target vessel right basilic vein identified and appropriate. Right upper arm sterile prep and drape with 2%CHG70% and allowed 3 minute dry time. Using ultrasound guidance, a mini access FRANCIS kit was utilized. The skin and subqutaneous tissue over the target vessel was anesthetized using 5cc 1% lidocaine. A 21 ga X 7 cm needle was used to cannulate the target vessel X 1 attempt. A 0.46 mm X 40 cm Nitinol wire was passed through the needle into the vessel easily without resistance and the needle was withdrawn. Wire placement within target vessel was verified with ultrasound guidance in both the short and long axis. A 4 FR X 10 cm catheter was passed over the wire easily and the wire was withdrawn intact. The catheter had good venous blood return and flushed easily with 0.9% normal saline. A sterile occlusive dressing was applied. The patient tolerated the procedure very well, and there were no complications. The Anesthesia Service remains available for consultation if needed.
[2021-10-29] MEDS ORDERED: XYLOCAINE 1% HCL 20 ML MDV IJ ONE (18:32)
[2021-10-30] MEDS: Tessalon Perles 100 MG PO PRN ×3 (02:54→21:19)
[2021-10-30 05:15] LABS: Hematocrit 37.7 % (35-47); Mean Cell Volume 100.8 fl (78-100); Mean Corpuscular Hemoglobin 32.1 pg (26-32); Mean Corpuscular Hgb Concent. 31.8 g/dl (32-36); Mean Platelet Volume 9.8 fl (7.5-11.0); Platelet Count 398 K/mm3 (150-450); Red Blood Count 3.74 M/mm3 (4.1-5.4); Red Cell Distribution Width 12.8 % (11.5-14.0); White Blood Count 6.3 K/mm3 (4.0-10.5)
[2021-10-30 05:36] LABS: ALBUMIN 3.3 g/dL (3.5-5.0); ALKALINE PHOSPHATASE 117 U/L (38-126); ANION GAP 9.4 MEQ/L (5-15); BLOOD UREA NITROGEN 11 mg/dL (7-17); CHLORIDE 97 mmol/L (98-107); Calcium 8.6 mg/dL (8.4-10.2); Carbon Dioxide 34 mmol/L (22-30); EST GLOMERULAR FILTRATION RATE > 60.0 ML/MIN; Glucose 87 mg/dL (74-106); SGOT/AST 23 U/L (14-36); SGPT/ALT 22 U/L (0-35); SODIUM 136 mmol/L (137-145); Total Protein 6.5 g/dL (6.3-8.2)
[2021-10-30 06:37] LABS: BAND 3 % (0.0-2.0); Eosinophil 1 % (0.00-3.0); Lymphocytes 22 % (24-44); Macrocytosis 1+; Neutrophils 74 % (36.0-66.0); Platelet Estimate NORMAL (NORMAL); Total Cells Counted 100
--- NOTE | 2021-10-30 08:34 | XRAY ---
Indication: Bilateral pneumonia. Multiple contiguous axial images obtained through the chest using 85 cc Isovue 370 contrast Comparison: October 24, 2021. There is slight worsening multifocal bilateral consolidating/nonconsolidating airspace disease again left lung greater than right. Also new small left effusion. Stable small right lower lobe calcified granuloma. Heart is not enlarged. Aorta normal in course and caliber. Stable mediastinal/right hilar calcified nodes. Previous noncalcified nodes anterior to arch appear slightly smaller. No pathologic mediastinal/hilar lymphadenopathy. New small hiatal hernia. Bony thorax intact again with minimal degenerative changes throughout the spine. Limited upper abdomen again demonstrates fatty liver, splenic calcified granulomas, cholecystectomy clips, and left renal cysts. Impression: 1. Interval worsening multifocal bilateral consolidating/nonconsolidating airspace disease with new left effusion. 2. New small hiatal hernia. 3. Again incidental fatty liver, left renal cyst, and old granulomatous disease.
--- NOTE | 2021-10-30 08:36 | XRAY ---
Indication: Pneumonia. Acute respiratory infection. Comparison: One day earlier. Portable chest again demonstrates CT proven multifocal bilateral consolidating/nonconsolidating airspace disease with interval clearing left lung base and interval diminished left upper lobe disease. Heart not enlarged. No new cardiopulmonary abnormalities.
[2021-10-30] MEDS: NORCO 5/325 MG PO PRN (08:38)
[2021-10-30] MEDS: Singulair 10 MG PO SCH (09:31)
[2021-10-30] MEDS: ENOXAPARIN SODIUM SQ SCH (09:31)
[2021-10-30] MEDS: SYNTHROID 50 MCG PO SCH (09:31)
[2021-10-30] MEDS: ROCEPHIN 1 Gm-D5w 50 ml Bag** 1 G/50 ML IVPB IV SCH (09:31)
[2021-10-30] MEDS: ceLEXa 20 MG PO SCH (09:31)
[2021-10-30] MEDS: Zithromax 500 MG/ 250 ML NaCl Premix 500 MG/250 ML IVPB IV SCH (10:05)
[2021-10-30] MEDS: TYLENOL 325 MG PO PRN ×2 (11:18→21:19)
[2021-10-31] MEDS: TYLENOL 325 MG PO PRN (04:59)
[2021-10-31 05:04] LABS: Hematocrit 39.4 % (35-47); Hemoglobin 12.6 gm/dl (12.0-16.0); Mean Platelet Volume 10.1 fl (7.5-11.0); Platelet Count 378 K/mm3 (150-450); Red Blood Count 3.94 M/mm3 (4.1-5.4); Red Cell Distribution Width 12.8 % (11.5-14.0); White Blood Count 6.3 K/mm3 (4.0-10.5)
[2021-10-31 05:32] LABS: ALBUMIN 3.5 g/dL (3.5-5.0); ALKALINE PHOSPHATASE 105 U/L (38-126); ANION GAP 11.1 MEQ/L (5-15); BLOOD UREA NITROGEN 9 mg/dL (7-17); CHLORIDE 98 mmol/L (98-107); Calcium 8.9 mg/dL (8.4-10.2); Carbon Dioxide 32 mmol/L (22-30); Creatinine 1 0.58 mg/dL (0.52-1.04); EST GLOMERULAR FILTRATION RATE > 60.0 ML/MIN; Glucose 102 mg/dL (74-106); Potassium 4.1 mmol/L (3.5-5.1); SGOT/AST 24 U/L (14-36); SGPT/ALT 19 U/L (0-35); SODIUM 137 mmol/L (137-145); Total Protein 6.8 g/dL (6.3-8.2)
[2021-10-31 08:10] VITALS: BP 148/81; PULSE 67; O2SAT 91
--- NOTE | 2021-10-31 08:34 | XRAY ---
Indication: Follow-up pneumonia. Comparison: One day earlier. Portable chest continues to demonstrates minimal clearing of multifocal bilateral airspace disease. Again incidental old granulomatous disease. Heart not enlarged. No new cardiopulmonary abnormalities.
[2021-10-31] MEDS: Singulair 10 MG PO SCH (09:07)
[2021-10-31] MEDS: ceLEXa 20 MG PO SCH (09:08)
[2021-10-31] MEDS: SYNTHROID 50 MCG PO SCH (09:08)
[2021-10-31] MEDS: ENOXAPARIN SODIUM SQ SCH (09:10)
--- NOTE | 2021-11-01 09:19 | PCM.DS ---
Discharge Summary Date of Admission: 10/25/21 08:28 Date of Discharge: 10/31/2021 Admitting Physician: JUNAID VIRGEN Primary Care Provider: NO FAMILY DOCTOR Allergies Allergies tobramycin Allergy (Severe, Verified 10/24/21 13:21) gentamicin Allergy (Verified 10/24/21 13:21) Hospital Summary - Hospital Course Hospital Course: Pt. admitted to hospital for multi-focal pneumonia and hypoxia with general weakness. Pt. was started on 2 iv abx rocephin and azithromycin with ivf and supplemental oxygen support, pt. mildly improved each day, but cxr actually worsened over the next several days prior to showing mild improvement over the last days, each of them being slightly better than prior, pt. wbc returned to normal and vss improved, pt. was down to 2 L per NC but felt this may take some time for her to improve that and decision made for her to go home with continued po antibiotics and home oxygen treatment. - Vitals & Intake/Output Vital Signs: Vital Signs Temperature 97.8 F 10/31/21 08:00 Pulse Rate 67 10/31/21 08:00 Respiratory Rate 16 10/31/21 08:00 Blood Pressure 148/81 10/31/21 08:00 O2 Sat by Pulse Oximetry 91 L 10/31/21 08:00 Intake & Output: Intake & Output 10/29/21 10/30/21 10/31/21 11/01/21 11:59 11:59 11:59 11:59 Intake Total 1740 1240 1440 Output Total 600 Balance 1740 1240 840 Weight 88.9 kg - Lab Result Diagrams: 10/31/21 04:40 10/31/21 04:40 Micro Results-Entire Visit: Microbiology 10/24/21 13:29 Blood Culture Gram Stain - Final Blood Not Reportable Blood Culture - Final NO GROWTH 10/24/21 14:08 Blood Culture Gram Stain - Final Blood Not Reportable Blood Culture - Final NO GROWTH - Radiology Exams Ordered Rad Exams-Entire Visit: Radiology Procedures Category Date Time Status CHEST 1 VIEW (PORTABLE) Routine Exams 10/31/21 06:04 Completed - Procedures and Test Procedures and Tests throughout Hospitalization: Therapy Orders & Screens 10/24/21 22:32 Oxygen Nasal Cannula 3 lpm Comment: Diagnosis: Leukocytosis, multifocal pneumonia, acute renal injury Respiratory Therapy Assessment DAILY Comment: Diagnosis: Leukocytosis, multifocal pneumonia, acute renal injury 03/22/22 13:58 Incentive Spirometry UD Comment: Diagnosis: COMMUNITY ACQUIRED PNEUMONIA Discharge Exam General Appearance: no apparent distress, alert Neurologic Exam: alert, oriented x 3, cooperative, normal mood/affect, nml cerebellar function, sensation nml, No motor deficits Eye Exam: PERRL, EOMI, eyes nml inspection Ears, Nose, Throat Exam: normal ENT inspection, pharynx normal, moist mucous membranes Neck Exam: normal inspection, non-tender, supple, full range of motion Respiratory Exam: normal breath sounds, crackles/rales, No respiratory distress Cardiovascular Exam: regular rate/rhythm, normal heart sounds Gastrointestinal/Abdomen Exam: soft, No tenderness, No mass Pelvic Exam: deferred Rectal Exam: deferred Back Exam: normal inspection, normal range of motion, No CVA tenderness, No vertebral tenderness Extremity Exam: normal inspection, normal range of motion Skin Exam: normal color, warm, dry Final Diagnosis/Problem List - Final Discharge Diagnosis/Problem (1) Acute kidney injury Status: Acute Code(s): N17.9 - ACUTE KIDNEY FAILURE, UNSPECIFIED (2) Community acquired pneumonia Status: Acute Code(s): J18.9 - PNEUMONIA, UNSPECIFIED ORGANISM (3) SOB (shortness of breath) Status: Acute Code(s): R06.02 - SHORTNESS OF BREATH - Discharge Discharge Date: 10/31/21 Disposition: Home, Self-Care Condition: Stable Prescriptions: New Amox Tr/Potass Clav. 875 mg [Augmentin 875-125 Tablet] 875 mg PO BID 7 Days #7 tablet Azithromycin [Azithromycin 250 mg Pack] 250 mg PO UD #6 tablet Continue Montelukast Sodium 10 mg [Singulair 10 MG] 10 mg PO DAILY Levothyroxine Sodium [Euthyrox] 50 mcg PO DAILY Buspirone HCl 5 mg [Buspar 5 mg] 10 mg PO BIDPRN PRN PRN Reason: Anxiety Potassium Chloride 10 meq PO DAILY Furosemide [Lasix] 20 mg PO DAILY Citalopram Hydrobromide [Celexa] 10 mg PO DAILY Instructions: Pneumonia, Adult (DC), Oxygen Therapy, Adult (DC) Additional Instructions: WEAR 2L/NC AT HOME [facility] WILL BE PROVIDING YOUR HOME OXYGEN. YOU WILL NEED TO CALL THEM AT WHEN YOU GET HOME FOR SET UP. Follow up with: JUNAID VIRGEN MD [ACTIVE STAFF] - 11/05/21 10:00 am
== END 2021-10-31 10:56 | disposition home or self-care (01) | DRG 682 ==
LOC: ED 13:04 → MED SURG 20:40 → OBSVTOIN 10-25 08:28
PROVIDERS: ADMIT Family Medicine; ATTEND Family Medicine
DX: N17.9 Acute kidney failure, unspecified (principal); J18.9 Pneumonia, unspecified organism; R06.02 Shortness of breath; E03.9 Hypothyroidism, unspecified; Z79.899 Other long term (current) drug therapy; Z20.828 Contact with and (suspected) exposure to other viral communicable diseases
CPT/HCPCS: 0241U; 36000; 36410; 36415; 71045; 71250; 71260; 76942; 80048; 80053; 83036; 83605; 83880; 84436; 84443; 84479; 84484; 85025; 85027; 87040; 93005; 93041; 93268; 94640; 94760; 94762; 96374; 99284; J0456; J0696; J1650; J1940; J2270; J2405; J3475; A9270-GY; G0378; J3370

== ENCOUNTER 2022-06-20 20:38 | Observation (INO) | payer BC, MEDICARE ==
[2022-06-20] MEDS ORDERED: DUONEB 0.5-3 MG/3 ml Neb IH ONE ×2 (21:09→21:22)
[2022-06-20] MEDS ORDERED: solu-MEDROL 125 MG, Sterile H2O 10 ml 2 ML IV ONE ×2 (21:09)
[2022-06-20] MEDS ORDERED: HYDROCODONE-ACETAMIN 2.5-108/5 ML SOLUTION PO STA (21:10)
[2022-06-20] MEDS ORDERED: solu-MEDROL ONE (21:11)
[2022-06-20] MEDS ORDERED: HYDROCODONE-ACETAMIN 2.5-108/5 ML SOLUTION ONE (21:11)
[2022-06-20] MEDS ORDERED: Sterile H2O 10 ml IJ ONE (21:11)
[2022-06-20] MEDS ORDERED: ROCEPHIN 2 Gm-D5w 50ML BAG** 2 G/50 ML IVPB IV STA (21:19)
[2022-06-20] MEDS ORDERED: ROCEPHIN 2 Gm-D5w 50ML BAG** 2 G/50 ML IVPB IV ONE (21:23)
--- NOTE | 2022-06-20 21:36 | ERPHSYRPT ---
- History of Present Illness Time Seen by Provider: 06/20/22 20:40 Source: patient Exam Limitations: no limitations Patient Subjective Stated Complaint: pt states "I can't get over this cough. Once I start coughing I can't stop. I'm short of breath." Triage Nursing Assessment: pt ambulated into the er; pt is axo x4; c/o cough, SOB; pt states 05/20 pain to head; SOB present along with respiratory distress; jasper lower lobe wheezing; dry hacking cough present; afebrile; vital wnl; skin PDW Physician History: 67-year-old female with history of anxiety, COPD presented in the ER with chief complaint of worsening cough for last 2 weeks. Patient reports cough productive of brownish to green sputum moderate in amount with associated increasing shortness of breath initially with activity and now even resting. Patient is currently on prednisone and Z-Gregorio with no significant relief. She feels weak fatigued tired and dehydrated with increased wheezing despite using albuterol neb treatments. No fever or chills reported. Because of repeated coughing has generalized chest soreness. Timing/Duration: week(s) (2), gradual onset, worse Activities at Onset: activity, rest Severity of Dyspnea-Max: moderate Severity of Dyspnea-Current: moderate Possible Cause: unknown cause Modifying Factors: Improves With: albuterol nebulizer. Worsens With: coughing, exertion Associated Symptoms: cough, chest pain/discomfort, wheezing, productive cough, tightness Allergies/Adverse Reactions: tobramycin Allergy (Severe, Verified 06/20/22 20:45) gentamicin Allergy (Verified 06/20/22 20:45) Home Medications: Buspirone HCl 5 mg [Buspar 5 mg] 10 mg PO BIDPRN PRN 10/24/21 [History] Citalopram Hydrobromide [Celexa] 10 mg PO DAILY PRN 10/24/21 [History] Furosemide [Lasix] 20 mg PO DAILY PRN 10/24/21 [History] Levothyroxine Sodium [Euthyrox] 50 mcg PO DAILY 10/24/21 [History] Montelukast Sodium 10 mg [Singulair 10 MG] 10 mg PO DAILY 10/24/21 [History] Potassium Chloride 10 meq PO DAILY PRN 10/24/21 [History] Azithromycin [Azithromycin 250 mg Pack] 250 mg PO DAILY 06/20/22 [History] Prednisone 10 mg [Deltasone 10 mg] 10 mg PO DAILY 06/20/22 [History] Hx Tetanus, Diphtheria Vaccination/Date Given: Yes Hx Influenza Vaccination/Date Given: No Hx Pneumococcal Vaccination/Date Given: Yes Travel Risk - International Travel Have you traveled outside of the country in past 3 weeks: No - Coronavirus Screening Are you exhibiting any of the following symptoms?: Yes Symptoms: Fever, Cough: New Onset, Shortness of Breath, Headaches/Body Aches/Fatigue - Vaccine Status Have you recieved a Covid-19 vaccination: Yes Ju[employer]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: [employer] - Review of Systems Constitutional: Fatigue, Weakness Eyes: No Symptoms Ears, Nose, & Throat: No Symptoms Respiratory: Cough, Dyspnea, 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), Wheezing Cardiac: Chest Pain Abdominal/Gastrointestinal: No Symptoms Genitourinary Symptoms: No Symptoms Musculoskeletal: No Symptoms Skin: No Symptoms Neurological: No Symptoms Psychological: Anxiety Endocrine: No Symptoms Hematologic/Lymphatic: No Symptoms Immunological/Allergic: No Symptoms - Past Medical History Pertinent Past Medical History: No Neurological History: No Pertinent History ENT History: Other Cardiac History: No Pertinent History Respiratory History: Asthma Endocrine Medical History: Hypothyroidism Musculoskeletal History: No Pertinent History GI Medical History: No Pertinent History History: No Pertinent History Psycho-Social History: Depression Female Reproductive Disorders: No Pertinent History Other Medical History: SEASONAL ALLERGIES - Past Surgical History Past Surgical History: Yes Neuro Surgical History: No Pertinent History Cardiac: No Pertinent History Respiratory: No Pertinent History Gastrointestinal: Cholecystectomy, Exploratory Laparoscopy, Hernia Repair Genitourinary: No Pertinent History Musculoskeletal: No Pertinent History Female Surgical History: Hysterectomy, Section - Social History Smoking Status: Smoker, status unknown Exposure to second hand smoke: No Drug Use: none Patient Lives Alone: No - Nursing Vital Signs Nursing Vital Signs: Initial Vital Signs Temperature 98.7 F 06/20/22 20:45 Pulse Rate 100 H 06/20/22 20:45 Respiratory Rate 28 H 06/20/22 20:45 Blood Pressure 97/84 06/20/22 20:45 O2 Sat by Pulse Oximetry 97 06/20/22 20:45 Pain Scale Pain Intensity 6 - Physical Exam General Appearance: no apparent distress, alert Eye Exam: PERRL/EOMI Ears, Nose, Throat Exam: hearing grossly normal, pharyngeal erythema Neck Exam: normal inspection, non-tender, supple, full range of motion Respiratory Exam: diminished breath sounds, crackles/rales, wheezing Cardiovascular/Chest Exam: normal heart sounds, regular rate/rhythm Abdominal/Gastrointestinal Exam: soft, normal bowel sounds, No tenderness Extremity Exam: non-tender, normal range of motion Neurologic Exam: alert, oriented x 3, cooperative Skin Exam: normal color SpO2 Interpretation: normal SpO2: 98 O2 Delivery: Room Air Ordered Tests: Medication Summary Discontinued Medications Generic Name Dose Route Start Last Admin Trade Name Freq PRN Reason Stop Dose Admin Acetaminophen 650 mg 06/21/22 00:42 Acetaminophen 325 Mg Tablet PO 07/21/22 00:41 Q4H PRN PRN PAIN AND/OR FEVER Hydrocodone Bitart/Acetaminophen 10 ml 06/20/22 21:10 06/20/22 21:13 Hydrocodone/Acetaminophen 5 Ml Udcup PO 06/20/22 21:11 10 ml STAT STA Administration Hydrocodone Bitart/Acetaminophen Confirm 06/20/22 21:11 Hydrocodone/Acetaminophen 5 Ml Udcup Administered 06/20/22 21:12 Dose 10 ml .ROUTE .STK-MED ONE Hydrocodone Bitart/Acetaminophen 5 ml 06/21/22 09:42 06/22/22 09:54 Hydrocodone/Acetaminophen 5 Ml Udcup PO 06/26/22 09:41 5 ml [id number] PRN Administration COUGH Albuterol Sulfate 2.5 mg 06/22/22 11:52 Albuterol Sulfate 2.5 Mg/3 Ml Neb 07/22/22 11:51 Q2H PRN PRN Albuterol/Ipratropium 3 ml 06/20/22 21:09 06/20/22 21:25 Ipratropium/Albuterol Sulfate 3 Ml Ampul.Neb IH 06/20/22 21:10 3 ml STAT ONE Administration Albuterol/Ipratropium Confirm 06/20/22 21:22 Ipratropium/Albuterol Sulfate 3 Ml Ampul.Neb Administered 06/20/22 21:23 Dose 3 ml IH .STK-MED ONE Albuterol/Ipratropium 3 ml 06/21/22 01:00 06/23/22 07:00 Ipratropium/Albuterol Sulfate 3 Ml Ampul.Neb IH 07/21/22 00:59 3 ml Q6HRT MARCELLO Administration Azithromycin 250 mg 06/21/22 10:00 Azithromycin 250 Mg Tablet PO 06/21/22 12:00 DAILY MARCELLO Benzonatate 200 mg 06/22/22 09:28 06/22/22 21:24 Benzonatate 100 Mg Capsule PO 07/22/22 09:27 200 mg TID PRN PRN Administration COUGH Buspirone HCl 10 mg 06/21/22 09:07 Buspirone Hcl 5 Mg Tablet PO 07/21/22 09:06 BIDPRN PRN ANXIETY Citalopram Hydrobromide 10 mg 06/21/22 09:12 Citalopram Hydrobromide 20 Mg Tablet PO 07/21/22 09:11 DAILY PRN PRN depression Methylprednisolone Sodium 0 mg 06/20/22 21:09 06/20/22 21:13 Succinate 125 mg/ Sterile IV 06/20/22 21:10 125 mg Water 2 ml STAT ONE Administration Methylprednisolone Sodium 0 mg 06/21/22 00:42 06/23/22 06:09 Succinate 60 mg/ Sterile Water IV 07/21/22 00:41 60 mg 2 ml Q6HT MARCELLO Administration Doxycycline Hyclate Confirm 06/20/22 21:43 Doxycycline Hyclate 100 Mg/Vial Injection Administered 06/20/22 21:44 Dose 100 mg IV .STK-MED ONE Enoxaparin Sodium 90 mg 06/20/22 23:30 06/20/22 23:36 Enoxaparin Sodium 100 Mg/Ml Syringe 1 mg/kg (90 mg) 07/20/22 23:29 90 mg SQ Administration Q12H [facility] Enoxaparin Sodium Confirm 06/20/22 23:34 Enoxaparin Sodium 100 Mg/Ml Syringe Administered 06/20/22 23:35 Dose 100 mg SQ .STK-MED ONE Enoxaparin Sodium 40 mg 06/21/22 10:00 Enoxaparin Sodium 40 Mg/0.4 Ml Syringe SQ 07/21/22 09:59 DAILY [facility] Enoxaparin Sodium 90 mg 06/21/22 00:42 06/21/22 02:09 Enoxaparin Sodium 100 Mg/Ml Syringe 1 mg/kg (90 mg) 07/21/22 00:41 Not Given SQ Q12H MARCELLO Enoxaparin Sodium 90 mg 06/21/22 10:00 06/23/22 09:16 Enoxaparin Sodium 100 Mg/Ml Syringe 1 mg/kg (90 mg) 07/21/22 00:41 90 mg SQ Administration Q12HT MARCELLO Furosemide 20 mg 06/21/22 09:07 Furosemide 20 Mg Tablet PO 07/21/22 09:06 DAILY PRN PRN edema Guaifenesin 15 ml 06/22/22 13:00 06/23/22 09:15 Guaifenesin 100 Mg/5 Ml 118 Ml Bottle PO 07/22/22 12:59 15 ml QID MARCELLO Administration Ceftriaxone Sodium/Dextrose 2 g in 50 mls @ 100 mls/hr 06/20/22 21:19 06/20/22 22:12 Rocephin 2 Gm-D5w 50ml Bag IV 06/20/22 21:48 Infused STAT STA Infusion Doxycycline Hyclate 100 mg/ 100 mls @ 100 mls/hr 06/20/22 22:00 06/20/22 22:02 Dextrose IV 07/20/22 21:59 100 mls/hr Q12HT MARCELLO Administration Ceftriaxone Sodium/Dextrose Confirm 06/20/22 21:23 Rocephin 2 Gm-D5w 50ml Bag Administered 06/20/22 21:24 Dose 2 g in 50 mls @ ud IV .STK-MED ONE Dextrose Confirm 06/20/22 21:43 D5w 100ml Mini Bag 100 Ml Administered 06/20/22 21:44 Dose 100 mls @ ud IV .STK-MED ONE Potassium Chloride/Sodium Chloride 1,000 mls @ 100 mls/hr 06/21/22 00:42 06/23/22 08:25 Sodium Chloride 0.9% W/ 20 Meq Kcl/Liter IV 07/21/22 00:41 100 mls/hr .Q10H MARCELLO Administration Ceftriaxone Sodium/Dextrose 2 g in 50 mls @ 100 mls/hr 06/21/22 22:00 06/22/22 21:24 Rocephin 2 Gm-D5w 50ml Bag IV 06/24/22 21:59 100 mls/hr QPM MARCELLO Administration Doxycycline Hyclate 100 mg/ 100 mls @ 100 mls/hr 06/21/22 10:00 06/23/22 09:30 Dextrose IV 07/21/22 09:59 100 mls/hr Q12HT MARCELLO Administration Levothyroxine Sodium 50 mcg 06/21/22 10:00 06/23/22 09:19 Levothyroxine Sodium 50 Mcg Tablet PO 07/21/22 09:59 50 mcg DAILY MARCELLO Administration Methylprednisolone Sodium Succinate Confirm 06/20/22 21:11 Methylprednis Sod Succ 125 Mg/2 Ml Vial Administered 06/20/22 21:12 Dose 125 mg .ROUTE .STK-MED ONE Methylprednisolone Sodium Succinate Confirm 06/21/22 05:55 Methylprednis Sod Succ 125 Mg/2 Ml Vial Administered 06/21/22 05:56 Dose 125 mg .ROUTE .STK-MED ONE Methylprednisolone Sodium Succinate Confirm 06/22/22 02:07 Methylprednis Sod Succ 125 Mg/2 Ml Vial Administered 06/22/22 02:08 Dose 125 mg .ROUTE .STK-MED ONE Methylprednisolone Sodium Succinate Confirm 06/23/22 05:47 Methylprednis Sod Succ 125 Mg/2 Ml Vial Administered 06/23/22 05:48 Dose 125 mg .ROUTE .STK-MED ONE Montelukast Sodium 10 mg 06/21/22 10:00 06/23/22 09:19 Montelukast Sodium 10 Mg Tablet PO 07/21/22 09:59 10 mg DAILY MARCELLO Administration Ondansetron HCl 4 mg 06/21/22 00:42 Ondansetron Hcl 4 Mg/2 Ml Vial IV 07/21/22 00:41 Q6H PRN PRN NAUSEA/VOMITING Pantoprazole Sodium 40 mg 06/21/22 10:00 06/23/22 09:19 Pantoprazole 40 Mg Vial IV 07/21/22 09:59 40 mg Q24H10 MARCELLO Administration Trelegy Inhaler 0 each 06/21/22 10:00 06/23/22 07:00 IH 07/21/22 09:59 1 each DAILY MARCELLO Administration Potassium Chloride 10 meq 06/21/22 09:07 Potassium Chloride Tab 10 Meq Tab PO 07/21/22 09:06 DAILY PRN PRN swelling Prednisone 10 mg 06/21/22 10:00 Prednisone 10 Mg Tablet PO 07/21/22 09:59 DAILY MARCELLO Sterile Water Confirm 06/20/22 21:11 Water For Injection,Sterile 10 Ml Vial Administered 06/20/22 21:12 Dose 10 ml IJ .STK-MED ONE Sterile Water Confirm 06/21/22 05:58 Water For Injection,Sterile 10 Ml Vial Administered 06/21/22 05:59 Dose 10 ml IJ .STK-MED ONE Lab/Rad Data: Laboratory Result Diagrams 06/20/22 21:00 06/20/22 21:00 Laboratory Results 06/20/22 06/20/22 06/20/22 Range/Units 22:55 22:55 21:35 WBC (4.0-10.5) x10^3/uL RBC (4.1-5.4) x10^6/uL Hgb (12.0-16.0) g/dL Hct (35-47) % MCV (78-100) fL MCH (26-32) pg MCHC (32-36) g/dL RDW (11.5-14.0) % Plt Count (150-450) x10^3/uL MPV (7.5-11.0) fL Gran % (36.0-66.0) % Immature Gran % (Auto) (0.00-0.4) % Nucleat RBC Rel Count (0.00-0.1) % Eos # (Auto) (0-0.5) x10^3/uL Immature Gran # (Auto) (0.00-0.03) x10^3u/L Absolute Lymphs (auto) (1.0-4.6) x10^3/uL Absolute Monos (auto) (0.0-1.3) x10^3/uL Absolute Nucleated RBC (0.00-0.01) x10^3u/L Lymphocytes % (24.0-44.0) % Monocytes % (0.0-12.0) % Eosinophils % (0.00-5.0) % Basophils % (0.0-0.4) % Absolute Granulocytes (1.4-6.9) x10^3/uL Basophils # (0-0.4) x10^3/uL D-Dimer (0.0-0.50) mg/L Sodium (137-145) mmol/L Potassium (3.5-5.1) mmol/L Chloride (98-107) mmol/L Carbon Dioxide (22-30) mmol/L Anion Gap (5-15) MEQ/L BUN (7-17) mg/dL Creatinine (0.52-1.04) mg/dL Estimated GFR ML/MIN Glucose (74-106) mg/dL Lactic Acid 1.6 (0.4-2.0) Calcium (8.4-10.2) mg/dL Magnesium (1.6-2.3) mg/dL Total Bilirubin (0.2-1.3) mg/dL AST (14-36) U/L ALT (0-35) U/L Alkaline Phosphatase (38-126) U/L Troponin I (0.000-0.034) ng/mL NT-Pro-B Natriuret Pep (0-900) pg/mL Serum Total Protein (6.3-8.2) g/dL Albumin (3.5-5.0) g/dL Procalcitonin (0.030-0.080) ng/mL Urinalys Dipstick Clnc MAIN LAB Urine Color YELLOW (YELLOW) Urine Appearance CLEAR (CLEAR) Urine pH 6.5 (5-6) Ur Specific [place] 1.010 (1.005-1.025) POC Urine Protein Conf NEGATIVE (Negative) Urine Ketones NEGATIVE (NEGATIVE) Urine Nitrite NEGATIVE (NEGATIVE) Urine Bilirubin NEGATIVE (NEGATIVE) Urine Urobilinogen 1 A (0-1) mg/dL Urine Leukocytes NEGATIVE (NEGATIVE) Urine WBC (Auto) 0-2 (0-5) /HPF Urine RBC (Auto) NONE (0-2) /HPF U Epithel Cells (Auto) NONE (FEW) /HPF Urine Bacteria (Auto) NONE (NEGATIVE) /HPF Urine RBC NEGATIVE (0-5) Raphael/ul Ur Culture Indicated? NO Urine Glucose NEGATIVE (NEGATIVE) mg/dL Influenza Type A Ag NEGATIVE (NEGATIVE) Influenza Type B Ag NEGATIVE (NEGATIVE) RSV (PCR) NEGATIVE (Negative) SARS-CoV-2 (PCR) NEGATIVE (NEGATIVE) 06/20/22 06/20/22 06/20/22 Range/Units 21:09 21:00 21:00 WBC (4.0-10.5) x10^3/uL RBC (4.1-5.4) x10^6/uL Hgb (12.0-16.0) g/dL Hct (35-47) % MCV (78-100) fL MCH (26-32) pg MCHC (32-36) g/dL RDW (11.5-14.0) % Plt Count (150-450) x10^3/uL MPV (7.5-11.0) fL Gran % (36.0-66.0) % Immature Gran % (Auto) (0.00-0.4) % Nucleat RBC Rel Count (0.00-0.1) % Eos # (Auto) (0-0.5) x10^3/uL Immature Gran # (Auto) (0.00-0.03) x10^3u/L Absolute Lymphs (auto) (1.0-4.6) x10^3/uL Absolute Monos (auto) (0.0-1.3) x10^3/uL Absolute Nucleated RBC (0.00-0.01) x10^3u/L Lymphocytes % (24.0-44.0) % Monocytes % (0.0-12.0) % Eosinophils % (0.00-5.0) % Basophils % (0.0-0.4) % Absolute Granulocytes (1.4-6.9) x10^3/uL Basophils # (0-0.4) x10^3/uL D-Dimer 0.67 H* (0.0-0.50) mg/L Sodium (137-145) mmol/L Potassium (3.5-5.1) mmol/L Chloride (98-107) mmol/L Carbon Dioxide (22-30) mmol/L Anion Gap (5-15) MEQ/L BUN (7-17) mg/dL Creatinine (0.52-1.04) mg/dL Estimated GFR ML/MIN Glucose (74-106) mg/dL Lactic Acid (0.4-2.0) Calcium (8.4-10.2) mg/dL Magnesium (1.6-2.3) mg/dL Total Bilirubin (0.2-1.3) mg/dL AST (14-36) U/L ALT (0-35) U/L Alkaline Phosphatase (38-126) U/L Troponin I < 0.012 (0.000-0.034) ng/mL NT-Pro-B Natriuret Pep (0-900) pg/mL Serum Total Protein (6.3-8.2) g/dL Albumin (3.5-5.0) g/dL Procalcitonin 0.400 H (0.030-0.080) ng/mL Urinalys Dipstick Clnc Urine Color (YELLOW) Urine Appearance (CLEAR) Urine pH (5-6) Ur Specific [place] (1.005-1.025) POC Urine Protein Conf (Negative) Urine Ketones (NEGATIVE) Urine Nitrite (NEGATIVE) Urine Bilirubin (NEGATIVE) Urine Urobilinogen (0-1) mg/dL Urine Leukocytes (NEGATIVE) Urine WBC (Auto) (0-5) /HPF Urine RBC (Auto) (0-2) /HPF U Epithel Cells (Auto) (FEW) /HPF Urine Bacteria (Auto) (NEGATIVE) /HPF Urine RBC (0-5) Raphael/ul Ur Culture Indicated? Urine Glucose (NEGATIVE) mg/dL Influenza Type A Ag (NEGATIVE) Influenza Type B Ag (NEGATIVE) RSV (PCR) (Negative) SARS-CoV-2 (PCR) (NEGATIVE) 06/20/22 06/20/22 Range/Units 21:00 21:00 WBC 14.2 H (4.0-10.5) x10^3/uL RBC 4.26 (4.1-5.4) x10^6/uL Hgb 13.7 (12.0-16.0) g/dL Hct 41.4 (35-47) % MCV 97.2 (78-100) fL MCH 32.2 H (26-32) pg MCHC 33.1 (32-36) g/dL RDW 12.2 (11.5-14.0) % Plt Count 302 (150-450) x10^3/uL MPV 10.1 (7.5-11.0) fL Gran % 77.8 H (36.0-66.0) % Immature Gran % (Auto) 1.5 H (0.00-0.4) % Nucleat RBC Rel Count 0.0 (0.00-0.1) % Eos # (Auto) 0.14 (0-0.5) x10^3/uL Immature Gran # (Auto) 0.21 H (0.00-0.03) x10^3u/L Absolute Lymphs (auto) 1.92 (1.0-4.6) x10^3/uL Absolute Monos (auto) 0.83 (0.0-1.3) x10^3/uL Absolute Nucleated RBC 0.00 (0.00-0.01) x10^3u/L Lymphocytes % 13.5 L (24.0-44.0) % Monocytes % 5.8 (0.0-12.0) % Eosinophils % 1.0 (0.00-5.0) % Basophils % 0.4 (0.0-0.4) % Absolute Granulocytes 11.05 H (1.4-6.9) x10^3/uL Basophils # 0.06 (0-0.4) x10^3/uL D-Dimer (0.0-0.50) mg/L Sodium 135 L (137-145) mmol/L Potassium 3.3 L (3.5-5.1) mmol/L Chloride 99 (98-107) mmol/L Carbon Dioxide 29 (22-30) mmol/L Anion Gap 11.5 (5-15) MEQ/L BUN 10 (7-17) mg/dL Creatinine 0.79 (0.52-1.04) mg/dL Estimated GFR > 60.0 ML/MIN Glucose 117 H (74-106) mg/dL Lactic Acid (0.4-2.0) Calcium 9.0 (8.4-10.2) mg/dL Magnesium 1.9 (1.6-2.3) mg/dL Total Bilirubin 0.70 (0.2-1.3) mg/dL AST 33 (14-36) U/L ALT 30 (0-35) U/L Alkaline Phosphatase 125 (38-126) U/L Troponin I (0.000-0.034) ng/mL NT-Pro-B Natriuret Pep 217 (0-900) pg/mL Serum Total Protein 7.9 (6.3-8.2) g/dL Albumin 4.2 (3.5-5.0) g/dL Procalcitonin (0.030-0.080) ng/mL Urinalys Dipstick Clnc Urine Color (YELLOW) Urine Appearance (CLEAR) Urine pH (5-6) Ur Specific [place] (1.005-1.025) POC Urine Protein Conf (Negative) Urine Ketones (NEGATIVE) Urine Nitrite (NEGATIVE) Urine Bilirubin (NEGATIVE) Urine Urobilinogen (0-1) mg/dL Urine Leukocytes (NEGATIVE) Urine WBC (Auto) (0-5) /HPF Urine RBC (Auto) (0-2) /HPF U Epithel Cells (Auto) (FEW) /HPF Urine Bacteria (Auto) (NEGATIVE) /HPF Urine RBC (0-5) Raphael/ul Ur Culture Indicated? Urine Glucose (NEGATIVE) mg/dL Influenza Type A Ag (NEGATIVE) Influenza Type B Ag (NEGATIVE) RSV (PCR) (Negative) SARS-CoV-2 (PCR) (NEGATIVE) - Progress Progress: re-examined Air Movement: fair Progress Note: 06/20/22 22:35 67-year-old is evaluated for worsening cough and shortness of breath. She is given DuoNeb and Solu-Medrol, chest x-ray showed bilateral airspace disease reviewed by me, official report is pending. Has a white count of 14, lactate of 1.6 and elevated procalcitonin 0.4. Given a dose of Rocephin and Doxy. Patient was having's some trouble breathing and was dropping in low 90s, placed on 2 L oxygen. Discussed with Dr. Hanley and patient is being admitted. Patient has elevated D-dimer and CTA is being obtained and if positive will treat accordingly. Plan discussed with patient who understand and agrees with it. 06/20/22 23:32 CTA showed bilateral small pulmonary embolisms. Discussed with Dr. Hanley and patient is started on Lovenox. Plan discussed with patient and family who understand and agree with it as well. Blood Culture(s) Obtained: Yes Antibiotics given: Yes Discussed with : Val Will see patient in: hospital (observation) Counseled pt/family regarding: lab results, diagnosis, rad results - Departure Departure Disposition: Observation Clinical Impression: Bilateral pneumonia, Bilateral pulmonary embolism Condition: Stable Critical Care Time: No
[2022-06-20] MEDS ORDERED: VIBRAMYCIN 100 MG IV ONE (21:43)
[2022-06-20] MEDS ORDERED: D5w 100ML Mini Bag 100 ML 100 ML IV ONE (21:43)
[2022-06-20 21:46] LABS: Absolute Neutrophil Ct (ANC) 11.05 x10^3/uL (1.4-6.9); Basophil (Absolute #) 0.06 x10^3/uL (0-0.4); Eosinophil (Absolute #) 0.14 x10^3/uL (0-0.5); Hematocrit 41.4 % (35-47); Hemoglobin 13.7 g/dL (12.0-16.0); Lymphocyte (Absolute #) 1.92 x10^3/uL (1.0-4.6); Lymphocytes % 13.5 % (24.0-44.0); Mean Cell Volume 97.2 fL (78-100); Mean Corpuscular Hemoglobin 32.2 pg (26-32); Mean Corpuscular Hgb Concent. 33.1 g/dL (32-36); Mean Platelet Volume 10.1 fL (7.5-11.0); Monocyte (Absolute #) 0.83 x10^3/uL (0.0-1.3); Monocytes % 5.8 % (0.0-12.0); Neutrophil % 77.8 % (36.0-66.0); Platelet Count 302 x10^3/uL (150-450); Red Blood Count 4.26 x10^6/uL (4.1-5.4); Red Cell Distribution Width 12.2 % (11.5-14.0); White Blood Count 14.2 x10^3/uL (4.0-10.5)
[2022-06-20] MEDS ORDERED: VIBRAMYCIN 100 MG*** 100 MG in Dextrose 5%/Water IV Soln. 100ML PLUS BAG 100 ML IV SCH (22:00)
[2022-06-20 22:06] LABS: ALBUMIN 4.2 g/dL (3.5-5.0); ALKALINE PHOSPHATASE 125 U/L (38-126); ANION GAP 11.5 MEQ/L (5-15); BLOOD UREA NITROGEN 10 mg/dL (7-17); CHLORIDE 99 mmol/L (98-107); Carbon Dioxide 29 mmol/L (22-30); Creatinine 1 0.79 mg/dL (0.52-1.04); EST GLOMERULAR FILTRATION RATE > 60.0 ML/MIN; Glucose 117 mg/dL (74-106); MAGNESIUM 1.9 mg/dL (1.6-2.3); NT PRO BNP 217 pg/mL (0-900); Potassium 3.3 mmol/L (3.5-5.1); SGOT/AST 33 U/L (14-36); SGPT/ALT 30 U/L (0-35); SODIUM 135 mmol/L (137-145); Total Protein 7.9 g/dL (6.3-8.2)
[2022-06-20 23:17] LABS: Appearance CLEAR (CLEAR); Bilirubin NEGATIVE (NEGATIVE); Glucose NEGATIVE (NEGATIVE); WBC 0-2 /HPF (0-5)
[2022-06-20 23:18] LABS: Dipstick done @ ? MAIN LAB; Ketones NEGATIVE (NEGATIVE); Nitrite NEGATIVE (NEGATIVE); Ph 6.5 (5-6); Protein,Urine Dip NEGATIVE (Negative); RBC NEGATIVE Ery/ul (0-5); Urine Cultured Indicated? NO; Urobilinogen 1 mg/dL (0-1)
[2022-06-20] MEDS ORDERED: ENOXAPARIN SODIUM SQ SCH (23:30)
[2022-06-20] MEDS ORDERED: ENOXAPARIN SODIUM SQ ONE (23:34)
[2022-06-20 23:45] LABS: INFLUENZA A NEGATIVE (NEGATIVE); INFLUENZA B NEGATIVE (NEGATIVE); RESPIRATORY SYNCTIAL VIRUS NEGATIVE (Negative); SARS-CoV-2 Xpert Express NEGATIVE (NEGATIVE)
[2022-06-21] MEDS ORDERED: TYLENOL 325 MG PO PRN (00:42)
[2022-06-21] MEDS ORDERED: Zofran 4 MG/2 ML VIAL IV PRN (00:42)
[2022-06-21] MEDS ORDERED: ENOXAPARIN SODIUM SQ SCH ×2 (00:42→10:00)
[2022-06-21] MEDS: DUONEB 0.5-3 MG/3 ml Neb IH SCH ×4 (01:45→19:31)
[2022-06-21] MEDS: solu-MEDROL 60 MG, Sterile H2O 10 ml 2 ML IV SCH ×8 (02:09→18:26)
[2022-06-21] MEDS: Sodium Chloride 0.9% W/ 20 mEq KCl/LITER 1,000 ML IV SCH ×3 (02:57→22:36)
[2022-06-21 05:54] LABS: Absolute Neutrophil Ct (ANC) 10.47 x10^3/uL (1.4-6.9); Basophil (Absolute #) 0.03 x10^3/uL (0-0.4); Eosinophil % 0.1 % (0.00-5.0); Eosinophil (Absolute #) 0.01 x10^3/uL (0-0.5); Hematocrit 39.1 % (35-47); Hemoglobin 12.8 g/dL (12.0-16.0); Lymphocyte (Absolute #) 1.17 x10^3/uL (1.0-4.6); Lymphocytes % 9.7 % (24.0-44.0); Mean Cell Volume 97.3 fL (78-100); Mean Corpuscular Hemoglobin 31.8 pg (26-32); Mean Corpuscular Hgb Concent. 32.7 g/dL (32-36); Mean Platelet Volume 9.9 fL (7.5-11.0); Monocyte (Absolute #) 0.14 x10^3/uL (0.0-1.3); Monocytes % 1.2 % (0.0-12.0); Neutrophil % 87.1 % (36.0-66.0); Platelet Count 265 x10^3/uL (150-450); Red Blood Count 4.02 x10^6/uL (4.1-5.4); Red Cell Distribution Width 12.2 % (11.5-14.0)
[2022-06-21] MEDS ORDERED: solu-MEDROL ONE (05:55)
[2022-06-21] MEDS ORDERED: Sterile H2O 10 ml IJ ONE (05:58)
[2022-06-21 06:54] LABS: ALBUMIN 3.7 g/dL (3.5-5.0); ALKALINE PHOSPHATASE 106 U/L (38-126); ANION GAP 13.3 MEQ/L (5-15); BLOOD UREA NITROGEN 13 mg/dL (7-17); CHLORIDE 102 mmol/L (98-107); Calcium 8.4 mg/dL (8.4-10.2); Carbon Dioxide 27 mmol/L (22-30); Creatinine 1 0.84 mg/dL (0.52-1.04); EST GLOMERULAR FILTRATION RATE > 60.0 ML/MIN; Glucose 208 mg/dL (74-106); Potassium 3.8 mmol/L (3.5-5.1); SGOT/AST 26 U/L (14-36); SGPT/ALT 28 U/L (0-35); SODIUM 139 mmol/L (137-145); Total Protein 7.3 g/dL (6.3-8.2)
[2022-06-21] MEDS: PATIENT OWN MEDICATION IH SCH (07:37)
[2022-06-21] MEDS ORDERED: BUSPAR 5 MG PO PRN (09:07)
[2022-06-21] MEDS ORDERED: Klor Con PO PRN (09:07)
[2022-06-21] MEDS ORDERED: LASIX 20 MG PO PRN (09:07)
[2022-06-21] MEDS ORDERED: NON-FORMULARY ITEM (Citalopram Hydrobromide [Celexa] 10 MG Tablet) PO PRN (09:07)
[2022-06-21] MEDS ORDERED: ceLEXa 20 MG PO PRN (09:12)
--- NOTE | 2022-06-21 09:16 | XRAY ---
Indication: Short of breath and cough. Elevated d-dimer. Asthma. Multiple contiguous axial images obtained through the chest using 100 cc Isovue 370 contrast and PE protocol. Comparison: October 29, 2021 Good opacification of the pulmonary arteries. However mild diffuse respiration artifact limits evaluation of the more distal lobar and segmental branches. No obvious pulmonary embolus. Heart not enlarged. Aorta remains normal in course and caliber. There remains small mediastinal and right hilar calcified nodes. Again small lymph nodes anterior to the arch presumed reactive. No pathologic lymphadenopathy. Lungs again hyperinflated with scattered patchy bilateral consolidating and nonconsolidating airspace disease less than before. Greatest extent again seen in both lung bases. Stable right lower lobe calcified granuloma. Bony thorax intact again with minimal degenerative changes throughout the spine. Limited upper abdomen again demonstrates fatty liver, numerous calcified splenic granulomas, cholecystotomy clips, and left renal cyst. Impression: 1. Pulmonary embolus evaluation limited by respiration artifact. No obvious pulmonary embolus. 2. Again diffuse bilateral patchy consolidating/nonconsolidating airspace disease. 3. Chronic findings including fatty liver, left renal cyst, degenerative spondylosis, fatty liver, left renal cyst, and old granulomatous disease. Comment: Preliminary interpretation made by [facility]. No critical discrepancy.
--- NOTE | 2022-06-21 09:20 | XRAY ---
Indication: Cough and short of breath. Comparison: October 31, 2021 Portable chest again demonstrates bilateral interstitial alveolar opacities less than before. Stable small mediastinal/right base calcified granulomas. Heart not enlarged. Bony thorax intact again with osteopenia and degenerative changes.
[2022-06-21] MEDS: HYDROCODONE-ACETAMIN 2.5-108/5 ML SOLUTION PO PRN ×2 (10:00→21:49)
[2022-06-21] MEDS ORDERED: Zithromax 250 MG TABLET PO SCH (10:00)
[2022-06-21] MEDS ORDERED: DELTASONE 10 MG PO SCH (10:00)
[2022-06-21] MEDS: SYNTHROID 50 MCG PO SCH (10:01)
[2022-06-21] MEDS: Singulair 10 MG PO SCH (10:01)
[2022-06-21] MEDS: PROTONIX 40 MG IV IV SCH (10:02)
[2022-06-21] MEDS: ENOXAPARIN SODIUM SQ SCH ×2 (10:03→21:51)
[2022-06-21] MEDS: VIBRAMYCIN 100 MG*** 100 MG in Dextrose 5%/Water IV Soln. 100ML PLUS BAG 100 ML IV SCH ×2 (10:09→22:32)
[2022-06-21] MEDS: ROCEPHIN 2 Gm-D5w 50ML BAG** 2 G/50 ML IVPB IV SCH (21:51)
[2022-06-22] MEDS: DUONEB 0.5-3 MG/3 ml Neb IH SCH ×4 (00:35→20:40)
[2022-06-22] MEDS ORDERED: solu-MEDROL ONE (02:07)
[2022-06-22] MEDS: solu-MEDROL 60 MG, Sterile H2O 10 ml 2 ML IV SCH ×8 (02:14→17:41)
[2022-06-22] MEDS: PATIENT OWN MEDICATION IH SCH (07:19)
[2022-06-22] MEDS ORDERED: Tessalon Perles 100 MG PO PRN (09:28)
[2022-06-22] MEDS: Sodium Chloride 0.9% W/ 20 mEq KCl/LITER 1,000 ML IV SCH ×2 (09:48→20:36)
[2022-06-22] MEDS: ENOXAPARIN SODIUM SQ SCH ×2 (09:53→21:24)
[2022-06-22] MEDS: SYNTHROID 50 MCG PO SCH (09:53)
[2022-06-22] MEDS: Singulair 10 MG PO SCH (09:53)
[2022-06-22] MEDS: PROTONIX 40 MG IV IV SCH (09:53)
[2022-06-22] MEDS: HYDROCODONE-ACETAMIN 2.5-108/5 ML SOLUTION PO PRN (09:54)
[2022-06-22] MEDS: VIBRAMYCIN 100 MG*** 100 MG in Dextrose 5%/Water IV Soln. 100ML PLUS BAG 100 ML IV SCH ×2 (10:49→22:14)
[2022-06-22] MEDS ORDERED: PROVENTIL 2.5 MG/3 ML NEB IH PRN (11:52)
[2022-06-22] MEDS: Robitussin 100 MG/5 ML PO SCH ×3 (13:17→22:17)
[2022-06-22] MEDS: ROCEPHIN 2 Gm-D5w 50ML BAG** 2 G/50 ML IVPB IV SCH (21:24)
[2022-06-23] MEDS: solu-MEDROL 60 MG, Sterile H2O 10 ml 2 ML IV SCH ×4 (00:46→06:09)
[2022-06-23] MEDS: DUONEB 0.5-3 MG/3 ml Neb IH SCH ×2 (03:58→07:00)
[2022-06-23] MEDS ORDERED: solu-MEDROL ONE (05:47)
[2022-06-23 06:31] LABS: Hematocrit 39.9 % (35-47); Mean Cell Volume 96.8 fL (78-100); Mean Corpuscular Hemoglobin 31.6 pg (26-32); Mean Corpuscular Hgb Concent. 32.6 g/dL (32-36); Mean Platelet Volume 10.2 fL (7.5-11.0); Platelet Count 287 x10^3/uL (150-450); Red Blood Count 4.12 x10^6/uL (4.1-5.4); Red Cell Distribution Width 12.5 % (11.5-14.0); White Blood Count 15.6 x10^3/uL (4.0-10.5)
[2022-06-23] MEDS: PATIENT OWN MEDICATION IH SCH (07:00)
[2022-06-23 07:01] LABS: ANION GAP 10.1 MEQ/L (5-15); BLOOD UREA NITROGEN 17 mg/dL (7-17); CHLORIDE 105 mmol/L (98-107); Calcium 8.5 mg/dL (8.4-10.2); Carbon Dioxide 26 mmol/L (22-30); Creatinine 1 0.68 mg/dL (0.52-1.04); EST GLOMERULAR FILTRATION RATE > 60.0 ML/MIN; Glucose 172 mg/dL (74-106); Potassium 4.5 mmol/L (3.5-5.1); SODIUM 136 mmol/L (137-145)
[2022-06-23 07:17] VITALS: BP 128/59
[2022-06-23] MEDS: Sodium Chloride 0.9% W/ 20 mEq KCl/LITER 1,000 ML IV SCH (08:25)
--- NOTE | 2022-06-23 08:48 | XRAY ---
Indication: Cough and short of breath. Pneumonia. Asthma. Comparison: June 20, 2022 Portable chest again demonstrates CT proven bilateral patchy interstitial alveolar opacities minimally worsened in both lung bases. New small left effusion. Remaining heart and upper lungs unremarkable again with incidental calcified granulomas. Comment: Preliminary interpretation made by [facility]. No critical discrepancy.
[2022-06-23] MEDS: Robitussin 100 MG/5 ML PO SCH (09:15)
[2022-06-23] MEDS: ENOXAPARIN SODIUM SQ SCH (09:16)
[2022-06-23] MEDS: PROTONIX 40 MG IV IV SCH (09:19)
[2022-06-23] MEDS: SYNTHROID 50 MCG PO SCH (09:19)
[2022-06-23] MEDS: Singulair 10 MG PO SCH (09:19)
[2022-06-23] MEDS: VIBRAMYCIN 100 MG*** 100 MG in Dextrose 5%/Water IV Soln. 100ML PLUS BAG 100 ML IV SCH (09:30)
[2022-06-23 12:10] VITALS: PULSE 58
[2022-06-27 22:09] VITALS: O2SAT 98
== END 2022-06-23 12:38 | disposition home or self-care (01) ==
LOC: ED 20:38 → MED SURG 06-21 00:37
PROVIDERS: ADMIT Family Medicine; ATTEND Family Medicine
DX: J18.9 Pneumonia, unspecified organism (principal); I26.99 Other pulmonary embolism without acute cor pulmonale; J44.9 Chronic obstructive pulmonary disease, unspecified; R79.89 Other specified abnormal findings of blood chemistry; R51.9 Headache, unspecified; Z79.899 Other long term (current) drug therapy; Z20.828 Contact with and (suspected) exposure to other viral communicable diseases
CPT/HCPCS: 0241U; 36000; 36415; 71045; 71260; 80048; 80053; 81015; 83605; 83735; 83880; 84145; 84484; 85025; 85027; 85379; 87040; 93005; 93041; 93268; 94640; 94760; 96365; 96367; 96372; 96374; 99285; G0378; J0696; J1650; J2930; A9270-GY

== ENCOUNTER → 2022-09-26 | Day surgery (SDC) | payer BC ==
--- NOTE | 2022-09-18 12:46 | HP ---
DATE OF SURGERY: 09/26/2022 HISTORY OF PRESENT ILLNESS: The patient is a 67-year-old female presents with complaints of hernia. The patient reports having this hernia for 20 years. Complaining of some discomfort with this. PAST MEDICAL HISTORY: Diabetes, hypothyroidism, asthma, allergic rhinitis. History of pulmonary embolism. PAST SURGICAL HISTORY: Cholecystectomy. Umbilical hernia repair. Two sections. Total hysterectomy. ALLERGIES: TOBRAMYCIN. GENTAMICIN. MEDICATIONS: Trelegy, Ozempic, Lasix, Synthroid, Albuterol, Euthyrox, citalopram, Singulair, buspirone, potassium. FAMILY HISTORY: Stroke. SOCIAL HISTORY: Former smoker. REVIEW OF SYSTEMS: CONSTITUTIONAL: Denies fever or chills. CHEST: Denies shortness of breath. CVS: Denies chest pain. ABDOMEN: Reports abdominal ventral hernia pain. PHYSICAL EXAMINATION: GENERAL: No acute distress. CHEST: Nonlabored. No shortness of breath. CVS: Regular rate and rhythm. ABDOMEN: Soft. IMPRESSION: Symptomatic ventral hernia. PLAN: Ventral hernia repair with possible mesh with Dr. Pankaj Batista. As dictated by Deysi Gallegos NP.
[~2022-09-26] MED LIST: CEFAZOLIN 2 GM-D5W BAG** 2 GM/50 ML ML IV ONE; CEFAZOLIN 2 GM-D5W BAG** 2 GM/50 ML ML IV SCH; DIPRIVAN 200 MG/20 ML IV ONE; DUONEB 0.5-3 MG/3 ml Neb IH ONE; KEFZOL 1 GM ONE; Lactated Ringers 1,000 ML IV ONE; Lactated Ringers 1,000 ML IV SCH; PHENYLEPHRINE HCL ONE; SUBLIMAZE 100 MCG/2 ML ONE; Sensorcaine 0.25% 10 ML ONE; Versed 2 MG/2 ML Injection ONE
[2022-09-26 09:22] LABS: Hematocrit 45.7 % (35-47); Hemoglobin 15.4 g/dL (12.0-16.0); Mean Cell Volume 94.6 fL (78-100); Mean Corpuscular Hemoglobin 31.9 pg (26-32); Mean Corpuscular Hgb Concent. 33.7 g/dL (32-36); Mean Platelet Volume 9.9 fL (7.5-11.0); Platelet Count 200 x10^3/uL (150-450); Red Blood Count 4.83 x10^6/uL (4.1-5.4); Red Cell Distribution Width 11.9 % (11.5-14.0); White Blood Count 5.9 x10^3/uL (4.0-10.5)
[2022-09-26 09:39] LABS: ALBUMIN 4.6 g/dL (3.5-5.0); ALKALINE PHOSPHATASE 80 U/L (38-126); ANION GAP 9.7 MEQ/L (5-15); BLOOD UREA NITROGEN 11 mg/dL (7-17); CHLORIDE 105 mmol/L (98-107); Calcium 9.4 mg/dL (8.4-10.2); Carbon Dioxide 29 mmol/L (22-30); Creatinine 1 0.79 mg/dL (0.52-1.04); EST GLOMERULAR FILTRATION RATE > 60.0 ML/MIN; Glucose 105 mg/dL (74-106); Potassium 4.1 mmol/L (3.5-5.1); SGOT/AST 25 U/L (14-36); SGPT/ALT 19 U/L (0-35); SODIUM 140 mmol/L (137-145); Total Protein 7.5 g/dL (6.3-8.2)
--- NOTE | 2022-09-26 11:52 | OP ---
SURGERY DATE/TIME: 09/26/2022 1005 PREOPERATIVE DIAGNOSIS: Ventral hernia above and to the right of umbilicus. POSTOPERATIVE DIAGNOSIS: Ventral hernia above and to the right of umbilicus, 4 cm. PROCEDURE: Open ventral hernia repair of 4 cm hernia with circular Bicomponent mesh. SURGEON: Pankaj Batista M.D. ANESTHESIA: General. Marcaine 10 cc. COMPLICATIONS: None. CONDITION: Stable. INDICATION: The patient has symptomatic hernia. Marked preoperatively. DESCRIPTION OF PROCEDURE: Taken to surgery. Spinal anesthetic performed. Curvilinear incision. The hernia was about 4 cm. The defect was 3 cm. The fascia was defined, it was reduced. The hernia sac was sent as specimen. Bicomponent mesh was placed. Four quadrant sutures of 0 Prolene, four inner quadrant sutures 0 Prolene. The straps were cut. Subcu closed with 3-0 Vicryl. Skin closed 4-0 Vicryl. Steri-Strips applied. Sterile dressing applied. The patient tolerated the procedure satisfactorily.
[2022-09-26 13:44] VITALS: O2SAT 96
[2022-09-26 14:36] VITALS: BP 117/69; PULSE 69
== END ==
LOC: SDC 08:27
PROVIDERS: ATTEND Surgery
DX: K43.9 Ventral hernia without obstruction or gangrene (principal)
CPT/HCPCS: 36415; 64488; 76937; 76942; 80053; 85027; 93005; 94640; C1781; J0690; J2250; J2370; J2704; J3010; L0625; A9270-GY

== ENCOUNTER 2024-12-16 17:34 | Observation (INO) | payer BC ==
--- NOTE | 2024-12-16 19:47 | ERPHSYRPT ---
- History of Present Illness Time Seen by Provider: 12/16/24 19:11 Source: patient, family Exam Limitations: no limitations Patient Subjective Stated Complaint: C/O fatigue and "not feeling well" for a few days. Triage Nursing Assessment: Patient brought back to ER in a W/C. She is alert and oriented; anxious. SKin is warm to touch. No SOB. COOL WNL. Physician History: 69-year-old female presented in the ER with complaints of flulike symptoms for the last few days with aches and pains all over. Patient woke up this morning, was not feeling well, had increased urination without any hesitancy or urgency. No hematuria. Denies any flank pain/abdominal pain. No cough congestion or difficulty breathing reported. No chest pain or palpitations. Has subjective feeling of fever and chills. Denies any known sick contact. Allergies/Adverse Reactions: tobramycin Allergy (Severe, Verified 12/16/24 18:58) gentamicin Allergy (Verified 12/16/24 18:58) Home Medications: Buspirone HCl 5 mg [Buspar 5 mg] 10 mg PO BIDPRN PRN 10/24/21 [History] Furosemide [Lasix] 20 mg PO DAILY PRN 10/24/21 [History] Levothyroxine Sodium [Euthyrox] 50 mcg PO DAILY 10/24/21 [History] Montelukast Sodium 10 mg [Singulair 10 MG] 10 mg PO DAILY 10/24/21 [History] Potassium Chloride 10 meq PO DAILY PRN 10/24/21 [History] Cholecalciferol (Vitamin D3) [Vitamin D] 1 cap PO DAILY 08/26/22 [History] Albuterol Sulfate [Albuterol Sulfate Hfa] 18 gm IH Q4HPRN PRN 09/26/22 [History] Citalopram Hydrobromide [Celexa] 10 mg PO DAILY 12/16/24 [History] Semaglutide [Ozempic] 1 mg SQ WEEKLY 12/16/24 [History] Hx Tetanus, Diphtheria Vaccination/Date Given: Yes Hx Influenza Vaccination/Date Given: No Hx Pneumococcal Vaccination/Date Given: Yes Immunizations Up to Date: Yes Travel Risk - International Travel Have you traveled outside of the country in past 3 weeks: No - Emerging Infectious Disease Are you exhibiting symptoms associated with any current EIDs: Yes Symptoms: Fever, Headaches/Body Aches/ - Review of Systems Constitutional: Fever, Chills, Fatigue Eyes: No Symptoms Ears, Nose, & Throat: No Symptoms Respiratory: No Symptoms Cardiac: No Symptoms Abdominal/Gastrointestinal: No Symptoms Genitourinary Symptoms: Frequency Musculoskeletal: Myalgias Skin: No Symptoms Neurological: No Symptoms Psychological: Hallucinations Hematologic/Lymphatic: No Symptoms - Past Medical History Pertinent Past Medical History: Yes Neurological History: No Pertinent History ENT History: Other Cardiac History: No Pertinent History Respiratory History: Asthma, Pneumonia Endocrine Medical History: Hypothyroidism Musculoskeletal History: Fractures GI Medical History: No Pertinent History History: No Pertinent History Psycho-Social History: Depression Female Reproductive Disorders: No Pertinent History Other Medical History: SEASONAL ALLERGIES - Past Surgical History Past Surgical History: Yes Neuro Surgical History: No Pertinent History Cardiac: No Pertinent History Respiratory: No Pertinent History Gastrointestinal: Cholecystectomy, Exploratory Laparoscopy, Hernia Repair Genitourinary: No Pertinent History Musculoskeletal: No Pertinent History Female Surgical History: Hysterectomy, Section Other Surgical History: c-sec x2 - Social History Smoking Status: Former smoker Drug Use: none - Social Determinants of Health Will the patient participate in the screening: Declined to provide - Nursing Vital Signs Nursing Vital Signs: Initial Vital Signs Temperature 98.4 F 12/16/24 18:50 Pulse Rate 109 H 12/16/24 18:50 Respiratory Rate 27 H 12/16/24 18:50 Blood Pressure 114/63 12/16/24 18:50 O2 Sat by Pulse Oximetry 91 L 12/16/24 18:50 Pain Scale Pain Intensity 7 - Physical Exam General Appearance: no apparent distress, alert Eye Exam: PERRL/EOMI Ears, Nose, Throat Exam: normal ENT inspection Neck Exam: normal inspection, non-tender, supple, full range of motion Respiratory Exam: diminished breath sounds, accessory muscle use, rhonchi, wheezing Cardiovascular Exam: regular rate/rhythm, normal heart sounds Gastrointestinal/Abdomen Exam: soft, normal bowel sounds, No tenderness Back Exam: normal inspection Extremity Exam: normal inspection, normal range of motion Neurologic Exam: alert, oriented x 3, cooperative, pit boss II-XII nml as tested Skin Exam: normal color SpO2 Interpretation: normal SpO2: 91 O2 Delivery: Room Air Ordered Tests: Active Orders 24 hr Category Date Time Status IV Insertion STAT Care 12/16/24 19:30 Active CHEST 1 VIEW (PORTABLE) Stat Exams 12/16/24 20:19 Taken BLOOD CULTURE Stat Lab 12/16/24 19:52 Received CBC W DIFF Stat Lab 12/16/24 19:46 Completed CMP Stat Lab 12/16/24 19:46 Completed Lactic Acid Stat Lab 12/16/24 20:10 Completed MAGNESIUM Stat Lab 12/16/24 19:46 Completed Manual Differential NC Stat Lab 12/16/24 19:46 Completed Medication Summary Generic Name Dose Route Start Last Admin Trade Name Fredayana PRN Reason Stop Dose Admin Albuterol/Ipratropium 3 ml 12/16/24 21:28 Ipratropium/Albuterol Sulfate 3 Ml Ampul.Neb IH 12/16/24 21:29 STAT ONE Azithromycin 500 mg/ Sodium 250 mls @ 250 mls/hr 12/16/24 21:28 Chloride IV 12/16/24 22:27 STAT STA Ceftriaxone Sodium 2 gm in 100 mls @ 200 mls/hr 12/16/24 21:28 Rocephin 2 Gm/100 Ml Nacl IV 12/16/24 21:57 STAT ONE Discontinued Medications Generic Name Dose Route Start Last Admin Trade Name Freq PRN Reason Stop Dose Admin Sodium Chloride 500 mls @ 500 mls/hr 12/16/24 19:31 12/16/24 21:01 Sodium Chloride 0.9% 500 Ml IV 12/16/24 20:30 Infused .Q1H ONE Infusion Sodium Chloride Confirm 12/16/24 19:56 Sodium Chloride 0.9% 500 Ml Administered 12/16/24 19:57 Dose 500 mls @ ud IV .STK-MED ONE Ketorolac Tromethamine 15 mg 12/16/24 19:31 12/16/24 20:00 Ketorolac Tromethamine 30 Mg/Ml Inj IV 12/16/24 19:32 15 mg STAT ONE Administration Ketorolac Tromethamine Confirm 12/16/24 19:56 Ketorolac Tromethamine 30 Mg/Ml Inj Administered 12/16/24 19:57 Dose 30 mg .ROUTE .STK-MED ONE Lab/Rad Data: Laboratory Result Diagrams 12/16/24 19:46 12/16/24 19:46 Laboratory Results 12/16/24 12/16/24 12/16/24 Range/Units 20:10 19:53 19:46 WBC (3.98-10.04) x10^3/uL RBC (3.93-5.22) x10^6/uL Hgb (11.2-15.7) g/dL Hct (34.1-44.9) % MCV (79.4-94.8) fL MCH (25.6-32.2) pg MCHC (32.2-35.5) g/dL RDW (11.7-14.4) % Plt Count (182-369) x10^3/uL MPV (9.4-12.3) fL Segmented Neutrophils (34.0-71.1) % Band Neutrophils (0.0-2.0) % Lymphocytes (Manual) (19.3-51.7) % Monocytes (Manual) (4.7-12.5) % Hypochromia Platelet Estimate (NORMAL) RBC Morphology Sodium 135 (135-145) mmol/L Potassium 3.4 L (3.5-5.1) mmol/L Chloride 99 (98-107) mmol/L Carbon Dioxide 24 (22-30) mmol/L Anion Gap 14.9 (5-15) MEQ/L BUN 16 (7-17) mg/dL Creatinine 1.04 (0.52-1.04) mg/dL Estimated GFR 58.2 ML/MIN Glucose 133 H (74-106) mg/dL Lactic Acid 1.7 (0.4-2.0) Calcium 9.3 (8.4-10.2) mg/dL Magnesium 1.5 L (1.6-2.3) mg/dL Total Bilirubin 1.40 H (0.2-1.3) mg/dL AST 27 (14-36) U/L ALT 21 (0-35) U/L Alkaline Phosphatase 65 (38-126) U/L Serum Total Protein 7.1 (6.3-8.2) g/dL Albumin 4.4 (3.5-5.0) g/dL Influenza Type A Ag NEGATIVE (NEGATIVE) Influenza Type B Ag NEGATIVE (NEGATIVE) RSV (PCR) NEGATIVE (NEGATIVE) SARS-CoV-2 (PCR) NEGATIVE (NEGATIVE) 12/16/24 Range/Units 19:46 WBC 19.5 H (3.98-10.04) x10^3/uL RBC 4.47 (3.93-5.22) x10^6/uL Hgb 14.3 (11.2-15.7) g/dL Hct 41.4 (34.1-44.9) % MCV 92.6 (79.4-94.8) fL MCH 32.0 (25.6-32.2) pg MCHC 34.5 (32.2-35.5) g/dL RDW 12.5 (11.7-14.4) % Plt Count 169 L (182-369) x10^3/uL MPV 10.5 (9.4-12.3) fL Segmented Neutrophils 84 H (34.0-71.1) % Band Neutrophils 5 H (0.0-2.0) % Lymphocytes (Manual) 8 L (19.3-51.7) % Monocytes (Manual) 3 L (4.7-12.5) % Hypochromia 1+ Platelet Estimate NORMAL (NORMAL) RBC Morphology ABNORMAL Sodium (135-145) mmol/L Potassium (3.5-5.1) mmol/L Chloride (98-107) mmol/L Carbon Dioxide (22-30) mmol/L Anion Gap (5-15) MEQ/L BUN (7-17) mg/dL Creatinine (0.52-1.04) mg/dL Estimated GFR ML/MIN Glucose (74-106) mg/dL Lactic Acid (0.4-2.0) Calcium (8.4-10.2) mg/dL Magnesium (1.6-2.3) mg/dL Total Bilirubin (0.2-1.3) mg/dL AST (14-36) U/L ALT (0-35) U/L Alkaline Phosphatase (38-126) U/L Serum Total Protein (6.3-8.2) g/dL Albumin (3.5-5.0) g/dL Influenza Type A Ag (NEGATIVE) Influenza Type B Ag (NEGATIVE) RSV (PCR) (NEGATIVE) SARS-CoV-2 (PCR) (NEGATIVE) - Progress Progress: improved, re-examined Progress Note: 12/16/24 21:29 Differentials include but not limited to: Pneumonia, pneumothorax, sepsis, UTI, influenza/COVID 69-year-old is evaluated in the ER for generalized aches and pains, fever chills with some urinary complaints. Patient was mildly tachypneic and tachycardic with heart rate in low 100s on presentation and blood pressure around 100 systolic. She is given gentle hydration, has decreased breath sounds in the right lower, given breathing treatment, feeling better on reevaluation. Patient was tachypneic with breathing rate in upper 20s, low 30s, oxygen saturation was dipping to 89%, placed on 2 L oxygen with improvement in saturation to 96%. Chest x-ray showed right-sided airspace disease interpreted by me, official final read is pending. Has a white count of 19, chemistries fairly unremarkable except for mildly low magnesium . COVID flu and RSV is negative. She is given a dose of Rocephin and Zithromax. Has mildly low magnesium, started on replacement. UA is pending Shared the results of workup with patient and family and recommended observation admission which they understand and agree. I have discussed with Dr. Rowell the patient is being admitted. Complexity of problems addressed: Moderate to high acuity Complexity of data reviewed/analyzed: Moderate to extensive Risk of complication: Moderate Discussed with Dr.: Other (Dr. Rowell hospitalist) Will see patient in: hospital (observation) Counseled pt/family regarding: lab results, diagnosis, rad results Medical Desision Making - Independent Historian Additional History obtained from: Child - Discussion of managment Care discussed with:: hospitalist (Dr. Rowell hospitalist) Reviewed:: Test results Agreed on:: Treatment plan, place in obs Will see patient: in hospital - Diagnostic Testing Diagnostic test were ordered, analyzed, and reviewed by me: Yes Radiological Interpretation: Interpreted by me - Risk of complications The pt has a mod risk of morbidity or mortality based on: Need for prescription drug management The pt has a high risk of morbidity or mortality based on: Decision regarding hospitilization or escalation of hosp level of care - Departure Departure Disposition: Observation Clinical Impression: Pneumonia, Hypomagnesemia Condition: Stable Critical Care Time: No Referrals: KASSIE OMNTAGUE MD [Primary Care Provider, [facility]] - Follow up/PCP as directed
[2024-12-16] MEDS ORDERED: Sodium Chloride 0.9% 500 ML 500 ML IV ONE (19:56)
[2024-12-16] MEDS ORDERED: TORAdol 30 mg Injection ONE (19:56)
[2024-12-16] MEDS: Sodium Chloride 0.9% 500 ML 500 ML IV ONE (19:59)
[2024-12-16] MEDS: TORAdol 30 mg Injection IV ONE (20:00)
[2024-12-16 20:06] LABS: Hematocrit 41.4 % (34.1-44.9); Hemoglobin 14.3 g/dL (11.2-15.7); Mean Cell Volume 92.6 fL (79.4-94.8); Mean Corpuscular Hgb Concent. 34.5 g/dL (32.2-35.5); Mean Platelet Volume 10.5 fL (9.4-12.3); Platelet Count 169 x10^3/uL (182-369); Red Blood Count 4.47 x10^6/uL (3.93-5.22); Red Cell Distribution Width 12.5 % (11.7-14.4); White Blood Count 19.5 x10^3/uL (3.98-10.04)
[2024-12-16 20:09] LABS: ALBUMIN 4.4 g/dL (3.5-5.0); ANION GAP 14.9 MEQ/L (5-15); BILIRUBIN,TOTAL 1.4 mg/dL (0.2-1.3); Calcium 9.3 mg/dL (8.4-10.2); Creatinine 1 1.04 mg/dL (0.52-1.04); EST GLOMERULAR FILTRATION RATE 58.2 ML/MIN; MAGNESIUM 1.5 mg/dL (1.6-2.3); Potassium 3.4 mmol/L (3.5-5.1); Total Protein 7.1 g/dL (6.3-8.2)
[2024-12-16 20:35] LABS: INFLUENZA A NEGATIVE (NEGATIVE); INFLUENZA B NEGATIVE (NEGATIVE); RESPIRATORY SYNCTIAL VIRUS NEGATIVE (NEGATIVE); SARS-CoV-2 Xpert Express NEGATIVE (NEGATIVE)
[2024-12-16 20:47] LABS: BAND 5 % (0.0-2.0); Lymphocytes 8 % (19.3-51.7); Monocyte 3 % (4.7-12.5); Neutrophils 84 % (34.0-71.1); Total Cells Counted 100
[2024-12-16 20:48] LABS: Hypochromia 1+; Platelet Estimate NORMAL (NORMAL)
[2024-12-16] MEDS ORDERED: DUONEB 0.5-3 MG/3 ml Neb IH ONE (21:43)
[2024-12-16] MEDS ORDERED: ROCEPHIN 2 GM/100 ML NACL 2 GM/100 ML IVPB IV ONE (21:48)
[2024-12-16] MEDS: DUONEB 0.5-3 MG/3 ml Neb IH ONE (21:49)
[2024-12-16] MEDS: ROCEPHIN 2 GM/100 ML NACL 2 GM/100 ML IVPB IV ONE (21:50)
[2024-12-16] MEDS ORDERED: ZITHROMAX IV IV ONE (22:26)
[2024-12-16] MEDS ORDERED: Sodium Chloride 0.9% 250 ML 250 ML IV ONE (22:27)
[2024-12-16] MEDS: ZITHROMAX IV*** 500 MG in Sodium Chloride 0.9% 250 ML 250 ML IV STA (22:30)
[2024-12-16] MEDS ORDERED: Magnesium 1 Gm / 100 Ml D5W*** 100 ML IV ONE ×2 (22:39→23:19)
[2024-12-16] MEDS: Magnesium 1 Gm / 100 Ml D5W*** 100 ML IV SCH (22:41)
--- NOTE | 2024-12-16 23:16 | PCM.HP ---
History of Present Illness - Chief Complaint Chief Complaint: weakness, SOB Date: 12/16/24 History of Present Illness: Ms. COOPER is a 69 year old female with a past medical history significant for hypertension, hyperlipidemia and hypothyroidism who presents to the hospital with complaints of chills, frequent urination and diffuse muscle aches for the past 3-4 days. Low grade fever up to 99. No recent sick contacts, no cough, or chest pain or palpitations. Initial CXR demonstrates some evidence of pneumonia so she was started on antibiotics. Initial O2 sats were in the 80-90s, so she was started on supplemental oxygen. She is seen via telehealth where she is rest ing in bed, awake/alert, appears in no acute distress. - Review of Systems Constitutional: Fever, Chills, Fatigue Eyes: No Vision Changes Ears, Nose, & Throat: No Nose Discharge, No Sinus Drainage Respiratory: Short Of Breath, Wheezing Cardiac: No Chest Pain, No Edema, No Palpitations Abdominal/Gastrointestinal: No Abdominal Pain, No Nausea, No Vomiting, No Diarrhea Genitourinary Symptoms: Dysuria, No Frequency, No Hematuria Musculoskeletal: Arthralgias, Myalgias Skin: No Rash Neurological: No Headache Psychological: No Suicidal Ideations Endocrine: No Polyuria, No Polydipsia Hematologic/Lymphatic: No Anemia Medications & Allergies Home Medications: Home Medication List Buspirone HCl 5 mg [Buspar 5 mg] 10 mg PO BIDPRN PRN 10/24/21 [History Confirmed 12/16/24] Furosemide [Lasix] 20 mg PO DAILY PRN 10/24/21 [History Confirmed 12/16/24] Levothyroxine Sodium [Euthyrox] 50 mcg PO DAILY 10/24/21 [History Confirmed 12/16/24] Montelukast Sodium 10 mg [Singulair 10 MG] 10 mg PO DAILY 10/24/21 [History Confirmed 12/16/24] Potassium Chloride 10 meq PO DAILY PRN 10/24/21 [History Confirmed 12/16/24] Albuterol/Ipratropium 3ml Neb* [DUONEB 0.5-3 MG/3 ml Neb] 3 ml IH TID #3 06/23/22 [Rx Confirmed 12/16/24] Cholecalciferol (Vitamin D3) [Vitamin D] 1 cap PO DAILY 08/26/22 [History Confirmed 12/16/24] Albuterol Sulfate [Albuterol Sulfate Hfa] 18 gm IH Q4HPRN PRN 09/26/22 [History Confirmed 12/16/24] Citalopram Hydrobromide [Celexa] 10 mg PO DAILY 12/16/24 [History Confirmed 12/16/24] Semaglutide [Ozempic] 1 mg SQ WEEKLY 12/16/24 [History Confirmed 12/16/24] Allergies/Adverse Reactions: Allergies Allergy/AdvReac Type Severity Reaction Status Date / Time tobramycin Allergy Severe Verified 12/16/24 18:58 gentamicin Allergy Verified 12/16/24 18:58 - Past Medical History Past Medical History: Yes Neurological History: No Pertinent History ENT History: Other Cardiac History: No Pertinent History Respiratory History: Asthma, Pneumonia Endocrine Medical History: Hypothyroidism Musculoskelatal History: Fractures GI Medical History: No Pertinent History History: No Pertinent History Pyscho-Social History: Depression Reproductive Disorders: No Pertinent History Comment: SEASONAL ALLERGIES - Past Surgical History Past Surgical History: Yes Neuro Surgical History: No Pertinent History Cardiac History: No Pertinent History Respiratory Surgery: No Pertinent History GI Surgical History: Cholecystectomy, Exploratory Laparoscopy, Hernia Repair Genitourinary Surgical Hx: No Pertinent History Musculskeletal Surgical Hx: No Pertinent History Female Surgical History: Hysterectomy, Section Other Surgical History: c-sec x2 - Social History Smoking Status: Former smoker How long have you smoked: 15 years Exposure to second hand smoke: No Alcohol: None Drug Use: none - Social Determinants of Health Will the patient participate in the screening: Declined to provide - Physical Exam Vital Signs: Vital Signs - 24 hr Temp Pulse Resp BP BP Pulse Ox 12/16/24 22:31 99 H 22 95/67 95 12/16/24 22:00 97 H 24 101/58 94 L 12/16/24 21:50 97 H 23 99 12/16/24 21:49 100 H 22 93 L 12/16/24 21:37 91 L 12/16/24 21:00 92 H 23 109/73 93 L 12/16/24 20:30 93 H 25 H 108/73 93 L 12/16/24 20:00 93 H 24 99/72 92 L 12/16/24 19:30 92 H 109/59 92 L 12/16/24 19:00 112 H 29 H 104/63 91 L 12/16/24 18:50 98.4 F 109 H 27 H 114/63 91 L General Appearance: no apparent distress Neurologic Exam: alert, oriented x 3 Ears, Nose, Throat Exam: dry mucous membranes Neck Exam: supple Respiratory Exam: No respiratory distress Cardiovascular Exam: regular rate/rhythm Gastrointestinal/Abdomen Exam: soft Extremity Exam: No swelling Skin Exam: normal color, No rash Results - Labs Lab/Micro Results: Lab Results-Last 24 Hours 12/16/24 12/16/24 12/16/24 Range/Units 19:46 19:46 19:53 WBC 19.5 H (3.98-10.04) x10^3/uL RBC 4.47 (3.93-5.22) x10^6/uL Hgb 14.3 (11.2-15.7) g/dL Hct 41.4 (34.1-44.9) % MCV 92.6 (79.4-94.8) fL MCH 32.0 (25.6-32.2) pg MCHC 34.5 (32.2-35.5) g/dL RDW 12.5 (11.7-14.4) % Plt Count 169 L (182-369) x10^3/uL MPV 10.5 (9.4-12.3) fL Segmented Neutrophils 84 H (34.0-71.1) % Band Neutrophils 5 H (0.0-2.0) % Lymphocytes (Manual) 8 L (19.3-51.7) % Monocytes (Manual) 3 L (4.7-12.5) % Hypochromia 1+ Platelet Estimate NORMAL (NORMAL) RBC Morphology ABNORMAL Sodium 135 (135-145) mmol/L Potassium 3.4 L (3.5-5.1) mmol/L Chloride 99 (98-107) mmol/L Carbon Dioxide 24 (22-30) mmol/L Anion Gap 14.9 (5-15) MEQ/L BUN 16 (7-17) mg/dL Creatinine 1.04 (0.52-1.04) mg/dL Estimated GFR 58.2 ML/MIN Glucose 133 H (74-106) mg/dL Lactic Acid (0.4-2.0) Calcium 9.3 (8.4-10.2) mg/dL Magnesium 1.5 L (1.6-2.3) mg/dL Total Bilirubin 1.40 H (0.2-1.3) mg/dL AST 27 (14-36) U/L ALT 21 (0-35) U/L Alkaline Phosphatase 65 (38-126) U/L Serum Total Protein 7.1 (6.3-8.2) g/dL Albumin 4.4 (3.5-5.0) g/dL Influenza Type A Ag NEGATIVE (NEGATIVE) Influenza Type B Ag NEGATIVE (NEGATIVE) RSV (PCR) NEGATIVE (NEGATIVE) SARS-CoV-2 (PCR) NEGATIVE (NEGATIVE) 12/16/24 Range/Units 20:10 WBC (3.98-10.04) x10^3/uL RBC (3.93-5.22) x10^6/uL Hgb (11.2-15.7) g/dL Hct (34.1-44.9) % MCV (79.4-94.8) fL MCH (25.6-32.2) pg MCHC (32.2-35.5) g/dL RDW (11.7-14.4) % Plt Count (182-369) x10^3/uL MPV (9.4-12.3) fL Segmented Neutrophils (34.0-71.1) % Band Neutrophils (0.0-2.0) % Lymphocytes (Manual) (19.3-51.7) % Monocytes (Manual) (4.7-12.5) % Hypochromia Platelet Estimate (NORMAL) RBC Morphology Sodium (135-145) mmol/L Potassium (3.5-5.1) mmol/L Chloride (98-107) mmol/L Carbon Dioxide (22-30) mmol/L Anion Gap (5-15) MEQ/L BUN (7-17) mg/dL Creatinine (0.52-1.04) mg/dL Estimated GFR ML/MIN Glucose (74-106) mg/dL Lactic Acid 1.7 (0.4-2.0) Calcium (8.4-10.2) mg/dL Magnesium (1.6-2.3) mg/dL Total Bilirubin (0.2-1.3) mg/dL AST (14-36) U/L ALT (0-35) U/L Alkaline Phosphatase (38-126) U/L Serum Total Protein (6.3-8.2) g/dL Albumin (3.5-5.0) g/dL Influenza Type A Ag (NEGATIVE) Influenza Type B Ag (NEGATIVE) RSV (PCR) (NEGATIVE) SARS-CoV-2 (PCR) (NEGATIVE) - Radiology Impressions Radiology Exams & Impressions: Radiology Procedures Category Date Time Status CHEST 1 VIEW (PORTABLE) Stat Exams 12/16/24 20:19 Taken - Other Procedures and Tests Respiratory Therapy 12/16/24 23:07 Oxygen Nasal Cannula 2 lpm Respiratory Therapy Consult ONCE Assessment/Plan (1) Pneumonia Current Visit: Yes Status: Acute Qualifiers: Pneumonia type: due to unspecified organism Laterality: unspecified laterality Lung location: unspecified part of lung Qualified Code(s): J18.9 - Pneumonia, unspecified organism Assessment & Plan: Shortness of breath secondary to pneumonia with fever/chills/myalgia 1. Admit to hospital 2. Empiric antibiotics, check sputum culture 3. Supplemental oxygen 4. DVT/GI prophylaxis 5. Monitor O2 sats Code(s): J18.9 - PNEUMONIA, UNSPECIFIED ORGANISM (2) Acute kidney injury Current Visit: No Status: Acute Assessment & Plan: Creatinine slightly elevated at 1.0 from prerenal azotemia +/- diuretic use 1. Encourage PO intake, defer IVFs 2. Check urine lytes, urine culture 3. Follow I/Os 4. Watch electrolytes, creatinine closely Code(s): N17.9 - ACUTE KIDNEY FAILURE, UNSPECIFIED (3) Bronchitis Current Visit: No Status: Acute Assessment & Plan: Secondary to pneumonia 1. Duonebs 2. Supplemental oxygen 3. Monitor O2 sats Code(s): J40 - BRONCHITIS, NOT SPECIFIED ACUTE OR CHRONIC (4) Hypokalemia Current Visit: No Status: Acute Assessment & Plan: Likely from loop diuretic versus GI losses - also with hypomagnesemia 1. Replete K, Mg 2. Hold diuretics 3. Monitor electrolytes closely Code(s): E87.6 - HYPOKALEMIA Telemedicine Encounter - Telemedicine Encounter Telemedicine Encounter: "The entirety of this encounter was performed via Telemedicine" This visit was performed using real-time audio and video connection between my location and thepatients locationwith the assistance of a surrogateat the patients location. Written or verbal consent was obtained from the patient/guardian to perform this visit [email or web address]icine technology. Any patient questions regarding the telemedicine interaction were answered.
[2024-12-16] MEDS ORDERED: BUSPAR 5 MG PO PRN (23:29)
[2024-12-17] MEDS: DUONEB 0.5-3 MG/3 ml Neb IH SCH (00:09)
[2024-12-17] MEDS: TORAdol 30 mg Injection IV PRN (01:42)
[2024-12-17 05:04] LABS: BASOPHIL % 0.3 % (0.1-1.2); Basophil (Absolute #) 0.05 x10^3/uL (0.01-0.08); Eosinophil % 0.1 % (0.7-5.8); Eosinophil (Absolute #) 0.02 x10^3/uL (0.04-0.36); Hematocrit 36.5 % (34.1-44.9); Hemoglobin 12.5 g/dL (11.2-15.7); IMMATURE GRAN # 0.11 x10^3u/L (0.001-0.031); IMMATURE GRAN % 0.6 % (0.001-0.429); Lymphocyte (Absolute #) 2.08 x10^3/uL (1.18-3.74); Lymphocytes % 10.5 % (19.3-51.7); Mean Cell Volume 93.6 fL (79.4-94.8); Mean Corpuscular Hemoglobin 32.1 pg (25.6-32.2); Mean Corpuscular Hgb Concent. 34.2 g/dL (32.2-35.5); Mean Platelet Volume 10.3 fL (9.4-12.3); Monocyte (Absolute #) 0.88 x10^3/uL (0.24-0.86); Monocytes % 4.5 % (4.7-12.5); Platelet Count 170 x10^3/uL (182-369); Red Cell Distribution Width 12.8 % (11.7-14.4); White Blood Count 19.7 x10^3/uL (3.98-10.04)
[2024-12-17 05:41] LABS: ALBUMIN 3.7 g/dL (3.5-5.0); ANION GAP 16.5 MEQ/L (5-15); Calcium 8.6 mg/dL (8.4-10.2); Creatinine 1 1.1 mg/dL (0.52-1.04); EST GLOMERULAR FILTRATION RATE 54.4 ML/MIN; Potassium 3.4 mmol/L (3.5-5.1)
[2024-12-17] MEDS: Klor Con PO ONE (08:40)
[2024-12-17 08:47] LABS: Appearance Clear (Clear); Bacteria None Seen /HPF (None Seen); Bilirubin Negative (Negative); Blood Negative (Negative); Epithelial Cells Rare /HPF (None Seen); Glucose, Urine Negative (Negative); Ketones Negative (Negative); Leukocyte Esterase Trace (Negative); Nitrite Negative (Negative); Protein,Urine Dip Negative (Negative); RBC 0-2 /HPF (0-5); Specific Gravity 1.015 (1.005-1.030); Urobilinogen 0.2 mg/dL (0.2)
[2024-12-17] MEDS: Sodium Chloride 0.9% 1000 ML 1,000 ML IV SCH (08:52)
--- NOTE | 2024-12-17 09:22 | XRAY ---
Indication: Fever. UTI. Comparison: July 05, 2022 Portable chest demonstrates new right base hazy interstitial alveolar opacities with small effusion. Again minimal left lung base subsegmental atelectasis/scarring and right base calcified granuloma. Heart not enlarged again with paratracheal calcified nodes. Bony thorax intact again with osteopenia and mild degenerative changes.
[2024-12-17 09:31] LABS: CREATININE,URINE RANDOM 131.2 MG/DL
[2024-12-17] MEDS: Flonase NASAL NS SCH (10:35)
[2024-12-17] MEDS: TYLENOL 325 MG PO PRN (10:35)
[2024-12-17] MEDS: Singulair 10 MG PO SCH (10:38)
[2024-12-17] MEDS: VITAMIN D PO SCH (10:38)
[2024-12-17] MEDS: ceLEXa 20 MG PO SCH (10:39)
[2024-12-17] MEDS: solu-MEDROL 40 MG, Sterile H2O 10 ml 1 ML IV SCH (10:40)
[2024-12-17] MEDS: ENOXAPARIN SODIUM SQ SCH (10:40)
[2024-12-17] MEDS: Protonix 40MG Tablet PO SCH (12:22)
--- NOTE | 2024-12-17 13:22 | PCM.NOTE ---
Date and Time: 12/17/24 1317 Subjective Assessment: 12/17/24 This is a 69-year-old female with a medical history of hypertension, hyperlipidemia, and hypothyroidism who presented with a 34 day history of chills, frequent urination, and diffuse muscle aches. She reported a low-grade fever up to 99F but denied recent sick contacts, cough, chest pain, or palpi tations. Initial chest X-ray showed findings suggestive of pneumonia, and she was started on IV antibiotics. Her oxygen saturation in the emergency department ranged from 8090%, prompting initiation of supplemental oxygen. Today, she remains on 2L oxygen via nasal cannula with an oxygen saturation of 93%. Flonase was started to address sinus congestion. Her potassium level was 3.4 and has been replaced. Anion gap is 16.5, and creatinine is elevated, so IV fluids were initiated. Blood cultures x2 and sputum cultures are pending. Her white blood cell count is elevated at 19.7, and IV antibiotics are being continued for treatment of pneumonia. The patient denies chest pain, abdominal pain, nausea, vomiting, or diarrhea. - Review of Systems Constitutional: No Fever, No Chills Eyes: No Symptoms Ears, Nose, & Throat: No Symptoms Respiratory: Short Of Breath, No Cough Cardiac: No Chest Pain, No Edema, No Syncope Abdominal/Gastrointestinal: No Abdominal Pain, No Nausea, No Vomiting, No Diarrhea Genitourinary Symptoms: No Dysuria Musculoskeletal: No Back Pain, No Neck Pain Skin: No Rash Neurological: No Dizziness, No Focal Weakness, No Sensory Changes Psychological: No Symptoms Endocrine: No Symptoms Hematologic/Lymphatic: No Symptoms Immunological/Allergic: No Symptoms Objective Exam General Appearance: no apparent distress, alert, obese Neurologic Exam: alert, oriented x 3, cooperative, normal mood/affect, nml cerebellar function, sensation nml, No motor deficits Skin Exam: normal color, warm, dry Eye Exam: PERRL, EOMI, eyes nml inspection Ears, Nose, Throat Exam: normal ENT inspection, pharynx normal, moist mucous membranes Neck Exam: normal inspection, non-tender, supple, full range of motion Respiratory Exam: lungs clear, rhonchi, No respiratory distress Cardiovascular Exam: regular rate/rhythm, normal heart sounds Gastrointestinal/Abdomen Exam: soft, No tenderness, No mass Extremity Exam: normal inspection, normal range of motion Back Exam: normal inspection, normal range of motion, No CVA tenderness, No vertebral tenderness Pelvic Exam: deferred Rectal Exam: deferred Objective Data Vital Signs: Vital Signs - 24 hr Temp Pulse Resp BP BP Pulse Ox 12/17/24 12:00 97.4 F 68 20 107/56 93 L 12/17/24 08:00 97.1 F 84 22 97/55 93 L 12/17/24 07:14 84 18 93 L 12/17/24 04:00 97.1 F 71 18 91/54 94 L 12/17/24 00:14 84 16 93 L 12/16/24 23:06 97.6 F 93 H 24 87/51 95 12/16/24 22:31 99 H 22 95/67 95 12/16/24 22:00 97 H 24 101/58 94 L 12/16/24 21:50 97 H 23 99 12/16/24 21:49 100 H 22 93 L 12/16/24 21:37 91 L 12/16/24 21:00 92 H 23 109/73 93 L 12/16/24 20:30 93 H 25 H 108/73 93 L 12/16/24 20:00 93 H 24 99/72 92 L 12/16/24 19:30 92 H 109/59 92 L 12/16/24 19:00 112 H 29 H 104/63 91 L 12/16/24 18:50 98.4 F 109 H 27 H 114/63 91 L Pain Assessment - Last Documented Pain Intensity 2 Pain Scale Used 0-10 Pain Scale Intake and Output: Intake & Output 12/15/24 12/16/24 12/17/24 12/18/24 11:59 11:59 11:59 11:59 Intake Total 420 Balance 420 Weight 81.5 kg Lab Results: Lab Results-Last 24 Hours 12/16/24 12/16/24 12/16/24 Range/Units 19:46 19:46 19:53 WBC 19.5 H (3.98-10.04) x10^3/uL RBC 4.47 (3.93-5.22) x10^6/uL Hgb 14.3 (11.2-15.7) g/dL Hct 41.4 (34.1-44.9) % MCV 92.6 (79.4-94.8) fL MCH 32.0 (25.6-32.2) pg MCHC 34.5 (32.2-35.5) g/dL RDW 12.5 (11.7-14.4) % Plt Count 169 L (182-369) x10^3/uL MPV 10.5 (9.4-12.3) fL Gran % (34.0-71.1) % Immature Gran % (Auto) (0.001-0.429) % Nucleat RBC Rel Count (0.00-0.2) % Eos # (Auto) (0.04-0.36) x10^3/uL Immature Gran # (Auto) (0.001-0.031) x10^3u/L Absolute Lymphs (auto) (1.18-3.74) x10^3/uL Absolute Monos (auto) (0.24-0.86) x10^3/uL Absolute Nucleated RBC (0.00-0.012) x10^3u/L Lymphocytes % (19.3-51.7) % Monocytes % (4.7-12.5) % Eosinophils % (0.7-5.8) % Basophils % (0.1-1.2) % Absolute Granulocytes (1.56-6.13) x10^3/uL Segmented Neutrophils 84 H (34.0-71.1) % Band Neutrophils 5 H (0.0-2.0) % Lymphocytes (Manual) 8 L (19.3-51.7) % Monocytes (Manual) 3 L (4.7-12.5) % Basophils # (0.01-0.08) x10^3/uL Hypochromia 1+ Platelet Estimate NORMAL (NORMAL) RBC Morphology ABNORMAL Sodium 135 (135-145) mmol/L Potassium 3.4 L (3.5-5.1) mmol/L Chloride 99 (98-107) mmol/L Carbon Dioxide 24 (22-30) mmol/L Anion Gap 14.9 (5-15) MEQ/L BUN 16 (7-17) mg/dL Creatinine 1.04 (0.52-1.04) mg/dL Estimated GFR 58.2 ML/MIN Glucose 133 H (74-106) mg/dL Lactic Acid (0.4-2.0) Calcium 9.3 (8.4-10.2) mg/dL Magnesium 1.5 L (1.6-2.3) mg/dL Total Bilirubin 1.40 H (0.2-1.3) mg/dL AST 27 (14-36) U/L ALT 21 (0-35) U/L Alkaline Phosphatase 65 (38-126) U/L Serum Total Protein 7.1 (6.3-8.2) g/dL Albumin 4.4 (3.5-5.0) g/dL Urine Color (Yellow) Urine Appearance (Clear) Urine pH (4.6-8.0) Ur Specific [place] (1.005-1.030) Urine Protein (Negative) Urine Glucose (UA) (Negative) mg/dL Urine Ketones (Negative) Urine Blood (Negative) Urine Nitrite (Negative) Urine Bilirubin (Negative) Urine Urobilinogen (0.2) mg/dL Ur Leukocyte Esterase (Negative) U Hyaline Cast (Auto) (0-2) /LPF Urine Microscopic RBC (0-5) /HPF Urine Microscopic WBC (0-5) /HPF Ur Epithelial Cells (None Seen) /HPF Urine Bacteria (None Seen) /HPF Urine Culture Reflexed (NO) Ur Random Creatinine MG/DL U Random Total Protein (0-12) mg/dL Urine Sodium (30-90) mmol/L Influenza Type A Ag NEGATIVE (NEGATIVE) Influenza Type B Ag NEGATIVE (NEGATIVE) RSV (PCR) NEGATIVE (NEGATIVE) SARS-CoV-2 (PCR) NEGATIVE (NEGATIVE) 12/16/24 12/17/24 12/17/24 Range/Units 20:10 04:59 04:59 WBC 19.7 H (3.98-10.04) x10^3/uL RBC 3.90 L (3.93-5.22) x10^6/uL Hgb 12.5 (11.2-15.7) g/dL Hct 36.5 (34.1-44.9) % MCV 93.6 (79.4-94.8) fL MCH 32.1 (25.6-32.2) pg MCHC 34.2 (32.2-35.5) g/dL RDW 12.8 (11.7-14.4) % Plt Count 170 L (182-369) x10^3/uL MPV 10.3 (9.4-12.3) fL Gran % 84.0 H (34.0-71.1) % Immature Gran % (Auto) 0.6 H (0.001-0.429) % Nucleat RBC Rel Count 0.0 (0.00-0.2) % Eos # (Auto) 0.02 L (0.04-0.36) x10^3/uL Immature Gran # (Auto) 0.11 H (0.001-0.031) x10^3u/L Absolute Lymphs (auto) 2.08 (1.18-3.74) x10^3/uL Absolute Monos (auto) 0.88 H (0.24-0.86) x10^3/uL Absolute Nucleated RBC 0.00 (0.00-0.012) x10^3u/L Lymphocytes % 10.5 L (19.3-51.7) % Monocytes % 4.5 L (4.7-12.5) % Eosinophils % 0.1 L (0.7-5.8) % Basophils % 0.3 (0.1-1.2) % Absolute Granulocytes 16.60 H (1.56-6.13) x10^3/uL Segmented Neutrophils (34.0-71.1) % Band Neutrophils (0.0-2.0) % Lymphocytes (Manual) (19.3-51.7) % Monocytes (Manual) (4.7-12.5) % Basophils # 0.05 (0.01-0.08) x10^3/uL Hypochromia Platelet Estimate (NORMAL) RBC Morphology Sodium 136 (135-145) mmol/L Potassium 3.4 L (3.5-5.1) mmol/L Chloride 99 (98-107) mmol/L Carbon Dioxide 24 (22-30) mmol/L Anion Gap 16.5 H (5-15) MEQ/L BUN 19 H (7-17) mg/dL Creatinine 1.10 H (0.52-1.04) mg/dL Estimated GFR 54.4 ML/MIN Glucose 128 H (74-106) mg/dL Lactic Acid 1.7 (0.4-2.0) Calcium 8.6 (8.4-10.2) mg/dL Magnesium (1.6-2.3) mg/dL Total Bilirubin 1.00 (0.2-1.3) mg/dL AST 24 (14-36) U/L ALT 18 (0-35) U/L Alkaline Phosphatase 49 (38-126) U/L Serum Total Protein 6.0 L (6.3-8.2) g/dL Albumin 3.7 (3.5-5.0) g/dL Urine Color (Yellow) Urine Appearance (Clear) Urine pH (4.6-8.0) Ur Specific [place] (1.005-1.030) Urine Protein (Negative) Urine Glucose (UA) (Negative) mg/dL Urine Ketones (Negative) Urine Blood (Negative) Urine Nitrite (Negative) Urine Bilirubin (Negative) Urine Urobilinogen (0.2) mg/dL Ur Leukocyte Esterase (Negative) U Hyaline Cast (Auto) (0-2) /LPF Urine Microscopic RBC (0-5) /HPF Urine Microscopic WBC (0-5) /HPF Ur Epithelial Cells (None Seen) /HPF Urine Bacteria (None Seen) /HPF Urine Culture Reflexed (NO) Ur Random Creatinine MG/DL U Random Total Protein (0-12) mg/dL Urine Sodium (30-90) mmol/L Influenza Type A Ag (NEGATIVE) Influenza Type B Ag (NEGATIVE) RSV (PCR) (NEGATIVE) SARS-CoV-2 (PCR) (NEGATIVE) 12/17/24 12/17/24 12/17/24 Range/Units 04:59 08:17 08:17 WBC (3.98-10.04) x10^3/uL RBC (3.93-5.22) x10^6/uL Hgb (11.2-15.7) g/dL Hct (34.1-44.9) % MCV (79.4-94.8) fL MCH (25.6-32.2) pg MCHC (32.2-35.5) g/dL RDW (11.7-14.4) % Plt Count (182-369) x10^3/uL MPV (9.4-12.3) fL Gran % (34.0-71.1) % Immature Gran % (Auto) (0.001-0.429) % Nucleat RBC Rel Count (0.00-0.2) % Eos # (Auto) (0.04-0.36) x10^3/uL Immature Gran # (Auto) (0.001-0.031) x10^3u/L Absolute Lymphs (auto) (1.18-3.74) x10^3/uL Absolute Monos (auto) (0.24-0.86) x10^3/uL Absolute Nucleated RBC (0.00-0.012) x10^3u/L Lymphocytes % (19.3-51.7) % Monocytes % (4.7-12.5) % Eosinophils % (0.7-5.8) % Basophils % (0.1-1.2) % Absolute Granulocytes (1.56-6.13) x10^3/uL Segmented Neutrophils (34.0-71.1) % Band Neutrophils (0.0-2.0) % Lymphocytes (Manual) (19.3-51.7) % Monocytes (Manual) (4.7-12.5) % Basophils # (0.01-0.08) x10^3/uL Hypochromia Platelet Estimate (NORMAL) RBC Morphology Sodium (135-145) mmol/L Potassium (3.5-5.1) mmol/L Chloride (98-107) mmol/L Carbon Dioxide (22-30) mmol/L Anion Gap (5-15) MEQ/L BUN (7-17) mg/dL Creatinine (0.52-1.04) mg/dL Estimated GFR ML/MIN Glucose (74-106) mg/dL Lactic Acid (0.4-2.0) Calcium (8.4-10.2) mg/dL Magnesium 2.5 H (1.6-2.3) mg/dL Total Bilirubin (0.2-1.3) mg/dL AST (14-36) U/L ALT (0-35) U/L Alkaline Phosphatase (38-126) U/L Serum Total Protein (6.3-8.2) g/dL Albumin (3.5-5.0) g/dL Urine Color Yellow (Yellow) Urine Appearance Clear (Clear) Urine pH 5.0 (4.6-8.0) Ur Specific [place] 1.015 (1.005-1.030) Urine Protein Negative (Negative) Urine Glucose (UA) Negative (Negative) mg/dL Urine Ketones Negative (Negative) Urine Blood Negative (Negative) Urine Nitrite Negative (Negative) Urine Bilirubin Negative (Negative) Urine Urobilinogen 0.2 (0.2) mg/dL Ur Leukocyte Esterase Trace A (Negative) U Hyaline Cast (Auto) 3-5 A (0-2) /LPF Urine Microscopic RBC 0-2 (0-5) /HPF Urine Microscopic WBC 3-5 (0-5) /HPF Ur Epithelial Cells Rare (None Seen) /HPF Urine Bacteria None Seen (None Seen) /HPF Urine Culture Reflexed NO (NO) Ur Random Creatinine 131.2 MG/DL U Random Total Protein 6 (0-12) mg/dL Urine Sodium 11 L (30-90) mmol/L Influenza Type A Ag (NEGATIVE) Influenza Type B Ag (NEGATIVE) RSV (PCR) (NEGATIVE) SARS-CoV-2 (PCR) (NEGATIVE) Radiology Exams: Radiology Procedures Category Date Time Status CHEST 1 VIEW (PORTABLE) Stat Exams 12/16/24 20:19 Completed Medications: Medications Generic Name Dose Route Start Last Admin Trade Name Freq PRN Reason Stop Dose Admin Acetaminophen 650 mg 12/17/24 07:40 12/17/24 10:35 Acetaminophen 325 Mg Tablet PO 01/16/25 07:39 650 mg Q6H PRN PRN Administration PAIN AND/OR FEVER Albuterol/Ipratropium 3 ml 12/17/24 01:00 12/17/24 13:03 Ipratropium/Albuterol Sulfate 3 Ml Ampul.Neb IH 01/16/25 00:59 3 ml Q6HRT MARCELLO Administration Buspirone HCl 10 mg 12/16/24 23:29 Buspirone Hcl 5 Mg Tablet PO 01/15/25 23:28 BIDPRN PRN ANXIETY Cholecalciferol 1,000 unit 12/17/24 10:00 12/17/24 10:38 Cholecalciferol (Vitamin D3) 1000 Unit Tablet PO 01/16/25 09:59 1,000 unit DAILY MARCELLO Administration Citalopram Hydrobromide 10 mg 12/17/24 10:00 12/17/24 10:39 Citalopram Hydrobromide 20 Mg Tablet PO 01/16/25 09:59 10 mg DAILY MARCELLO Administration Methylprednisolone Sodium 0 mg 12/17/24 10:00 12/17/24 10:40 Succinate 40 mg/ Sterile Water IV 01/16/25 09:59 40 mg 1 ml Q12HT MARCELLO Administration Enoxaparin Sodium 40 mg 12/17/24 10:00 12/17/24 10:40 Enoxaparin Sodium 40 Mg/0.4 Ml Syringe SQ 01/16/25 09:59 40 mg DAILY MARCELLO Administration Fluticasone Propionate 0 gm 12/17/24 10:00 12/17/24 10:35 Fluticasone Propionate 16 Gm Bottle Nasal Embarrass NS 01/16/25 09:59 16 gm DAILY MARCELLO Administration Ceftriaxone Sodium 1 gm in 100 mls @ 200 mls/hr 12/17/24 22:00 Rocephin 1 Gm / 100 Ml Nacl IV 01/16/25 21:59 QPM MARCELLO Azithromycin 500 mg/ Sodium 250 mls @ 250 mls/hr 12/17/24 22:00 Chloride IV 01/16/25 21:59 QPM MARCELLO Sodium Chloride 1,000 mls @ 75 mls/hr 12/17/24 07:45 12/17/24 08:52 Sodium Chloride 0.9% 1000 Ml IV 01/16/25 07:44 75 mls/hr .[id number] MARCELLO Administration Levothyroxine Sodium 100 mcg 12/17/24 12:26 Levothyroxine Sodium 100 Mcg Tablet PO 01/16/25 12:25 DAILY@0700 MARCELLO Montelukast Sodium 10 mg 12/17/24 10:00 12/17/24 10:38 Montelukast Sodium 10 Mg Tablet PO 01/16/25 09:59 10 mg DAILY MARCELLO Administration Pantoprazole Sodium 40 mg 12/17/24 10:00 12/17/24 12:22 Protonix (Pantoprazole) 40 Mg Tablet PO 01/16/25 09:59 40 mg DAILY MARCELLO Administration Discontinued Medications Generic Name Dose Route Start Last Admin Trade Name Freq PRN Reason Stop Dose Admin Albuterol/Ipratropium 3 ml 12/16/24 21:28 12/16/24 21:49 Ipratropium/Albuterol Sulfate 3 Ml Ampul.Neb IH 12/16/24 21:29 3 ml STAT ONE Administration Albuterol/Ipratropium Confirm 12/16/24 21:43 Ipratropium/Albuterol Sulfate 3 Ml Ampul.Neb Administered 12/16/24 21:44 Dose 3 ml IH .STK-MED ONE Azithromycin Confirm 12/16/24 22:26 Azithromycin Inj Administered 12/16/24 22:27 Dose 500 mg IV .STK-MED ONE Sodium Chloride 500 mls @ 500 mls/hr 12/16/24 19:31 12/16/24 21:01 Sodium Chloride 0.9% 500 Ml IV 12/16/24 20:30 Infused .Q1H ONE Infusion Sodium Chloride Confirm 12/16/24 19:56 Sodium Chloride 0.9% 500 Ml Administered 12/16/24 19:57 Dose 500 mls @ ud IV .STK-MED ONE Azithromycin 500 mg/ Sodium 250 mls @ 250 mls/hr 12/16/24 21:28 12/16/24 22:30 Chloride IV 12/16/24 22:27 250 ml/hr STAT STA 250 mls/hr Administration Ceftriaxone Sodium 2 gm in 100 mls @ 200 mls/hr 12/16/24 21:28 12/16/24 22:34 Rocephin 2 Gm/100 Ml Nacl IV 12/16/24 21:57 Infused STAT ONE Infusion Magnesium Sulfate/Dextrose 100 mls @ 100 mls/hr 12/16/24 21:45 12/16/24 23:20 Magnesium 1 Gm / 100 Ml D5w IV 12/16/24 23:44 100 mls/hr Q1H MARCELLO Administration Ceftriaxone Sodium Confirm 12/16/24 21:48 Rocephin 2 Gm/100 Ml Nacl Administered 12/16/24 21:49 Dose 2 gm in 100 mls @ ud IV .STK-MED ONE Sodium Chloride Confirm 12/16/24 22:27 Sodium Chloride 0.9% 250 Ml Administered 12/16/24 22:28 Dose 250 mls @ ud IV .STK-MED ONE Magnesium Sulfate/Dextrose Confirm 12/16/24 22:39 Magnesium 1 Gm / 100 Ml D5w Administered 12/16/24 22:40 Dose 100 mls @ ud IV .STK-MED ONE Magnesium Sulfate/Dextrose Confirm 12/16/24 23:19 Magnesium 1 Gm / 100 Ml D5w Administered 12/16/24 23:20 Dose 100 mls @ ud IV .STK-MED ONE Ketorolac Tromethamine 15 mg 12/16/24 19:31 12/16/24 20:00 Ketorolac Tromethamine 30 Mg/Ml Inj IV 12/16/24 19:32 15 mg STAT ONE Administration Ketorolac Tromethamine Confirm 12/16/24 19:56 Ketorolac Tromethamine 30 Mg/Ml Inj Administered 12/16/24 19:57 Dose 30 mg .ROUTE .STK-MED ONE Ketorolac Tromethamine 15 mg 12/17/24 01:39 12/17/24 07:36 Ketorolac Tromethamine 30 Mg/Ml Inj IV 12/22/24 01:38 15 mg Q6H PRN PRN Administration PAIN Levothyroxine Sodium 50 mcg 12/17/24 10:00 Levothyroxine Sodium 50 Mcg Tablet PO 01/16/25 09:59 DAILY MARCELLO Potassium Chloride 40 meq 12/17/24 07:45 12/17/24 08:40 Potassium Chloride Tab 10 Meq Tab PO 12/17/24 07:46 40 meq STAT ONE Administration Multi-Disciplinary Progress Notes: Multi-Disciplinary Progress Notes 12/17/24 07:17 Pharmacy Note by Isidoro Baker Please be aware of possible drug interaction with Zithromax and Celexa. May prolong the QT interval. Initialized on 12/17/24 07:17 - END OF NOTE Assessment/Plan (1) Pneumonia Current Visit: No Status: Acute Qualifiers: Pneumonia type: due to unspecified organism Laterality: unspecified laterality Lung location: unspecified part of lung Qualified Code(s): J18.9 - Pneumonia, unspecified organism Assessment & Plan: Shortness of breath secondary to pneumonia with fever/chills/myalgia - Empiric antibiotics, check sputum culture - Supplemental oxygen- 2lNC 93% - DVT/GI prophylaxis - Monitor O2 sats - BC x2 pending - CBC, CMP reviewed Code(s): J18.9 - PNEUMONIA, UNSPECIFIED ORGANISM (2) Acute renal injury Current Visit: No Status: Acute Assessment & Plan: - Creat 1.10- IVF started- trend Code(s): N17.9 - ACUTE KIDNEY FAILURE, UNSPECIFIED (3) Bronchitis Current Visit: No Status: Acute Assessment & Plan: Secondary to pneumonia 1. Duonebs 2. Supplemental oxygen 3. Monitor O2 sats Code(s): J40 - BRONCHITIS, NOT SPECIFIED ACUTE OR CHRONIC (4) Hypokalemia Current Visit: No Status: Acute Assessment & Plan: - K+ 3.4- replaced- trend - tele Code(s): E87.6 - HYPOKALEMIA (5) Obesity (BMI 30.0-34.9) Current Visit: Yes Status: Chronic Assessment & Plan: - Advised diet and exercise control VTE: Lovenox PPI: Protonix Next of KIN: Child- Brent Faith, D/C plan: 1-2 days Code status: Full Code(s): E66.811 - OBESITY, CLASS 1
[2024-12-17 14:05] LABS: MAGNESIUM 2.5 mg/dL (1.6-2.3); Potassium 3.6 mmol/L (3.5-5.1)
[2024-12-17] MEDS: SYNTHROID 50 MCG PO SCH (14:10)
[2024-12-17] MEDS: SYNTHROID 100 MCG PO SCH (14:19)
[2024-12-17] MEDS: ROCEPHIN 1 GM / 100 ML NaCl 1 GM/100 ML IVPB IV SCH (21:27)
[2024-12-17] MEDS: ZITHROMAX IV*** 500 MG in Sodium Chloride 0.9% 250 ML 250 ML IV SCH (23:03)
[2024-12-18 03:57] VITALS: O2SAT 93
[2024-12-18 06:08] LABS: Hematocrit 35.5 % (34.1-44.9); Hemoglobin 11.9 g/dL (11.2-15.7); Mean Cell Volume 93.7 fL (79.4-94.8); Mean Corpuscular Hemoglobin 31.4 pg (25.6-32.2); Mean Corpuscular Hgb Concent. 33.5 g/dL (32.2-35.5); Mean Platelet Volume 10.8 fL (9.4-12.3); Platelet Count 160 x10^3/uL (182-369); Red Blood Count 3.79 x10^6/uL (3.93-5.22); Red Cell Distribution Width 12.9 % (11.7-14.4); White Blood Count 12.5 x10^3/uL (3.98-10.04)
[2024-12-18 06:24] LABS: ALBUMIN 3.9 g/dL (3.5-5.0); ANION GAP 17.1 MEQ/L (5-15); BILIRUBIN,TOTAL 0.4 mg/dL (0.2-1.3); Calcium 9.1 mg/dL (8.4-10.2); Creatinine 1 0.73 mg/dL (0.52-1.04); Potassium 4.4 mmol/L (3.5-5.1); Total Protein 6.5 g/dL (6.3-8.2)
--- NOTE | 2024-12-18 08:24 | PCM.DS ---
Discharge Summary Date of Admission: 12/16/24 23:04 Date of Discharge: 12/18/24 Admitting Physician: MARIA DEL CARMEN LOVE MD Primary Care Provider: KASSIE MONTAGUE Allergies Allergies tobramycin Allergy (Severe, Verified 12/16/24 18:58) gentamicin Allergy (Verified 12/16/24 18:58) Hospital Summary - Hospital Course Hospital Course: 12/17/24 This is a 69-year-old female with a medical history of hypertension, hyperlipidemia, and hypothyroidism who presented with a 34 day history of chills, frequent urination, and diffuse muscle aches. She reported a low-grade fever up to 99F but denied recent sick contacts, cough, chest pain, or palpitations. Initial chest X-ray showed findings suggestive of pneumonia, and she was started on IV antibiotics. Her oxygen saturation in the emergency department ranged from 8090%, prompting initiation of supplemental oxygen. Today, she remains on 2L oxygen via nasal cannula with an oxygen saturation of 93%. Flonase was started to address sinus congestion. Her potassium level was 3.4 and has been replaced. Anion gap is 16.5, and creatinine is elevated, so IV fluids were initiated. Blood cultures x2 and sputum cultures are pending. Her white blood cell count is elevated at 19.7, and IV antibiotics are being continued for treatment of pneumonia. The patient denies chest pain, abdominal pain, nausea, vomiting, or diarrhea. 5/10 Pt resting in bed. She states she feels much better and now room air 93%. She is wanting further testing for Legionarre's, lab ordered. She would like to d/c today. Advised not to work this weekend and take it easy. She can return Friday. Andrae ld/c with antibiotics for Pneumonia. She denies any further concerns at this time. - Vitals & Intake/Output Vital Signs: Vital Signs Temperature 97.1 F 12/18/24 03:56 Pulse Rate 81 12/18/24 06:51 Respiratory Rate 18 12/18/24 06:51 Blood Pressure 114/58 12/18/24 03:56 O2 Sat by Pulse Oximetry 93 L 12/18/24 06:51 Intake & Output: Intake & Output 12/15/24 12/16/24 12/17/24 12/18/24 11:59 11:59 11:59 11:59 Intake Total 420 1984 Balance 420 1984 Weight 81.5 kg - Lab Result Diagrams: 12/18/24 05:40 12/18/24 05:40 Lab Results-Last 24 Hrs: Lab Results-Last 24 Hours 12/17/24 12/17/24 12/17/24 Range/Units 08:17 08:17 13:15 WBC (3.98-10.04) x10^3/uL RBC (3.93-5.22) x10^6/uL Hgb (11.2-15.7) g/dL Hct (34.1-44.9) % MCV (79.4-94.8) fL MCH (25.6-32.2) pg MCHC (32.2-35.5) g/dL RDW (11.7-14.4) % Plt Count (182-369) x10^3/uL MPV (9.4-12.3) fL Sodium (135-145) mmol/L Potassium 3.6 (3.5-5.1) mmol/L Chloride (98-107) mmol/L Carbon Dioxide (22-30) mmol/L Anion Gap (5-15) MEQ/L BUN (7-17) mg/dL Creatinine (0.52-1.04) mg/dL Estimated GFR ML/MIN Glucose (74-106) mg/dL Hemoglobin A1c (4.5-6.0) % Calcium (8.4-10.2) mg/dL Magnesium 2.5 H (1.6-2.3) mg/dL Total Bilirubin (0.2-1.3) mg/dL AST (14-36) U/L ALT (0-35) U/L Alkaline Phosphatase (38-126) U/L Serum Total Protein (6.3-8.2) g/dL Albumin (3.5-5.0) g/dL Urine Color Yellow (Yellow) Urine Appearance Clear (Clear) Urine pH 5.0 (4.6-8.0) Ur Specific [place] 1.015 (1.005-1.030) Urine Protein Negative (Negative) Urine Glucose (UA) Negative (Negative) mg/dL Urine Ketones Negative (Negative) Urine Blood Negative (Negative) Urine Nitrite Negative (Negative) Urine Bilirubin Negative (Negative) Urine Urobilinogen 0.2 (0.2) mg/dL Ur Leukocyte Esterase Trace A (Negative) U Hyaline Cast (Auto) 3-5 A (0-2) /LPF Urine Microscopic RBC 0-2 (0-5) /HPF Urine Microscopic WBC 3-5 (0-5) /HPF Ur Epithelial Cells Rare (None Seen) /HPF Urine Bacteria None Seen (None Seen) /HPF Urine Culture Reflexed NO (NO) Ur Random Creatinine 131.2 MG/DL U Random Total Protein 6 (0-12) mg/dL Urine Sodium 11 L (30-90) mmol/L 12/18/24 12/18/24 12/18/24 Range/Units 05:40 05:40 05:40 WBC 12.5 H (3.98-10.04) x10^3/uL RBC 3.79 L (3.93-5.22) x10^6/uL Hgb 11.9 (11.2-15.7) g/dL Hct 35.5 (34.1-44.9) % MCV 93.7 (79.4-94.8) fL MCH 31.4 (25.6-32.2) pg MCHC 33.5 (32.2-35.5) g/dL RDW 12.9 (11.7-14.4) % Plt Count 160 L (182-369) x10^3/uL MPV 10.8 (9.4-12.3) fL Sodium 141 (135-145) mmol/L Potassium 4.4 D (3.5-5.1) mmol/L Chloride 108 H (98-107) mmol/L Carbon Dioxide 20 L (22-30) mmol/L Anion Gap 17.1 H (5-15) MEQ/L BUN 15 (7-17) mg/dL Creatinine 0.73 (0.52-1.04) mg/dL Estimated GFR 89.0 ML/MIN Glucose 173 H (74-106) mg/dL Hemoglobin A1c 5.08 (4.5-6.0) % Calcium 9.1 (8.4-10.2) mg/dL Magnesium (1.6-2.3) mg/dL Total Bilirubin 0.40 (0.2-1.3) mg/dL AST 26 (14-36) U/L ALT 26 (0-35) U/L Alkaline Phosphatase 65 (38-126) U/L Serum Total Protein 6.5 (6.3-8.2) g/dL Albumin 3.9 (3.5-5.0) g/dL Urine Color (Yellow) Urine Appearance (Clear) Urine pH (4.6-8.0) Ur Specific [place] (1.005-1.030) Urine Protein (Negative) Urine Glucose (UA) (Negative) mg/dL Urine Ketones (Negative) Urine Blood (Negative) Urine Nitrite (Negative) Urine Bilirubin (Negative) Urine Urobilinogen (0.2) mg/dL Ur Leukocyte Esterase (Negative) U Hyaline Cast (Auto) (0-2) /LPF Urine Microscopic RBC (0-5) /HPF Urine Microscopic WBC (0-5) /HPF Ur Epithelial Cells (None Seen) /HPF Urine Bacteria (None Seen) /HPF Urine Culture Reflexed (NO) Ur Random Creatinine MG/DL U Random Total Protein (0-12) mg/dL Urine Sodium (30-90) mmol/L - Radiology Exams Ordered Rad Exams-Entire Visit: Radiology Procedures Category Date Time Status CHEST 1 VIEW (PORTABLE) Stat Exams 12/16/24 20:19 Completed - Procedures and Test Procedures and Tests throughout Hospitalization: Therapy Orders & Screens 12/16/24 21:49 Respiratory Therapy Assessment DAILY Comment: 12/16/24 23:07 Oxygen Nasal Cannula 2 lpm Comment: Respiratory Therapy Consult ONCE Comment: Reason For Exam: 12/17/24 00:14 Respiratory Therapy Assessment DAILY Comment: Diagnosis: weakness, SOB Discharge Exam General Appearance: no apparent distress, alert, obese Neurologic Exam: alert, oriented x 3, cooperative, normal mood/affect, nml cerebellar function, sensation nml, No motor deficits Eye Exam: PERRL, EOMI, eyes nml inspection Ears, Nose, Throat Exam: normal ENT inspection, pharynx normal, moist mucous membranes Neck Exam: normal inspection, non-tender, supple, full range of motion Respiratory Exam: normal breath sounds, lungs clear, No respiratory distress Cardiovascular Exam: regular rate/rhythm, normal heart sounds Gastrointestinal/Abdomen Exam: soft, No tenderness, No mass Pelvic Exam: deferred Rectal Exam: deferred Back Exam: normal inspection, normal range of motion, No CVA tenderness, No vertebral tenderness Extremity Exam: normal inspection, normal range of motion Skin Exam: normal color, warm, dry Final Diagnosis/Problem List - Final Discharge Diagnosis/Problem (1) Pneumonia Current Visit: No Status: Acute Code(s): J18.9 - PNEUMONIA, UNSPECIFIED ORGANISM (2) Acute renal injury Current Visit: No Status: Resolved Code(s): N17.9 - ACUTE KIDNEY FAILURE, UNSPECIFIED (3) Bronchitis Current Visit: No Status: Acute Code(s): J40 - BRONCHITIS, NOT SPECIFIED ACUTE OR CHRONIC (4) Hypokalemia Current Visit: No Status: Resolved Code(s): E87.6 - HYPOKALEMIA (5) Obesity (BMI 30.0-34.9) Current Visit: Yes Status: Chronic Assessment & Plan: (1) Pneumonia Current Visit: No Status: Acute Qualifiers: Pneumonia type: due to unspecified organism Laterality: unspecified laterality Lung location: unspecified part of lung Qualified Code(s): J18.9 - Pneumonia, unspecified organism Assessment & Plan: Shortness of breath secondary to pneumonia with fever/chills/myalgia - Empiric antibiotics, check sputum culture - Supplemental oxygen- 2lNC 93% - DVT/GI prophylaxis - Monitor O2 sats - BC x2 pending - CBC, CMP reviewed 12/18 - CBC, CMP reviewed - will follow sputum and BC x2 OP. - Will d/c with antibiotic and steroids Code(s): J18.9 - PNEUMONIA, UNSPECIFIED ORGANISM (2) Acute renal injury Current Visit: No Status: Acute Assessment & Plan: - Creat 1.10- IVF started- trend 12/18 - reoslved Code(s): N17.9 - ACUTE KIDNEY FAILURE, UNSPECIFIED (3) Bronchitis Current Visit: No Status: Acute Assessment & Plan: Secondary to pneumonia 1. Duonebs 2. Supplemental oxygen 3. Monitor O2 sats Code(s): J40 - BRONCHITIS, NOT SPECIFIED ACUTE OR CHRONIC (4) Hypokalemia Current Visit: No Status: Acute Assessment & Plan: - K+ 3.4- replaced- trend - tele 12/18 - resolved Code(s): E87.6 - HYPOKALEMIA (5) Obesity (BMI 30.0-34.9) Current Visit: Yes Status: Chronic Assessment & Plan: - Advised diet and exercise control Code(s): E66.811 - OBESITY, CLASS 1 (6) Hypermagnesemia Current Visit: Yes Status: Acute Assessment & Plan: 12/17 -Mg+ 2.5- trend - IVF 12/18 - Mg+ 2.4- will need OP f/u for repeat lab Code(s): E83.41 - HYPERMAGNESEMIA (7) Dehydration Current Visit: Yes Status: Acute Assessment & Plan: - IVF - Anion gap 17.1 - Encourage oral hydration Code(s): E86.0 - DEHYDRATION - Discharge Discharge Date: 12/18/24 Disposition: Home, Self-Care Condition: Stable Prescriptions: Continue Buspirone HCl 5 mg [Buspar 5 mg] 10 mg PO BIDPRN PRN PRN Reason: Anxiety Potassium Chloride 10 meq PO DAILY PRN PRN Reason: swelling Furosemide [Lasix] 20 mg PO DAILY PRN PRN Reason: edema Albuterol/Ipratropium 3ml Neb* [DUONEB 0.5-3 MG/3 ml Neb] 3 ml IH TID #3 Cholecalciferol (Vitamin D3) [Vitamin D] 1 cap PO DAILY Albuterol Sulfate [Albuterol Sulfate Hfa] 18 gm IH Q4HPRN PRN PRN Reason: Shortness Of Breath/Wheezing Semaglutide [Ozempic] 1 mg SQ WEEKLY Citalopram Hydrobromide [Celexa] 10 mg PO DAILY Levothyroxine Sodium 100 Mcg [Synthroid 100 Mcg] 100 mcg PO DAILY Montelukast Sodium 10 mg [Singulair 10 MG] 10 mg PO DAILY 30 Days #30 tablet Instructions: Pneumonia in adults - Discharge instructions Additional Instructions: You can buy Flonase OTC if you feel this is helpful. Follow up with: KASSIE MONTAGUE MD [Primary Care Provider, [facility]] - 12/22/24 11:00 am Forms: Discharge Instructions
[2024-12-18 09:56] VITALS: BP 113/74; PULSE 86; RESP 22; TEMP 97.5
== END 2024-12-18 10:30 | disposition home or self-care (01) ==
LOC: ED 17:34 → MED SURG 23:04
PROVIDERS: ADMIT Internal Medicine Nephrology; ATTEND Internal Medicine Nephrology
DX: J18.9 Pneumonia, unspecified organism (principal); N17.9 Acute kidney failure, unspecified; J40 Bronchitis, not specified as acute or chronic; E87.6 Hypokalemia; E66.811 Obesity, class 1; E83.41 Hypermagnesemia; E86.0 Dehydration; I10 Essential (primary) hypertension; E78.5 Hyperlipidemia, unspecified; E03.9 Hypothyroidism, unspecified; Z79.899 Other long term (current) drug therapy
CPT/HCPCS: 0241U; 36415; 71045; 80053; 81001; 82570; 83036; 83605; 83735; 84132; 84156; 84300; 85025; 85027; 86713; 87040; 94640; 94760; 96374; 99285; G0378; Q3014; 99284; J0456; J0696; J1650; J1885; J2919; J3475; A9270-GY